=== PATIENT | female | born 1955 | race Caucasian/White ===

== ENCOUNTER 2022-02-13 08:36 | Outpatient (CLI) | payer BC, SELFPAY ==
[2022-02-13 14:03] LABS: Chloride* 105 mmol/L (96-114)
[2022-02-13 14:04] LABS: Albumin* 4.5 g/dL (3.3-5.0); Potassium* 4.3 mmol/L (3.6-5.1); Sodium* 141 mmol/L (135-149)
[2022-02-13 14:07] LABS: Bilirubin Total* 0.8 mg/dL (0.1-1.5); Blood Urea Nitrogen* 32 mg/dL (7-30); Carbon Dioxide* 29 mmol/L (20-32); Cholesterol* 157 mg/dL (90-199); Creatinine* 1.2 mg/dL (0.5-1.5); Estimated Glomerular Filt Rate 50 ml/min; Total Protein* 7.2 g/dL (6.0-8.3)
[2022-02-13 14:08] LABS: Alanine Aminotransferase* 22 U/L (4-35); Alkaline Phosphatase* 76 U/L (40-150); Aspartate Amino Transferase* 37 U/L (12-35); Calcium* 9.3 mg/dL (8.4-10.6); Glucose* 95 mg/dL (60-115); HDL Cholesterol* 49 mg/dL (>=50); LDL Cholesterol Calculated 82 mg/dL (<100); Triglycerides* 129 mg/dL (40-149)
== END 2022-02-13 08:37 | disposition home or self-care (01) ==
PROVIDERS: PCP Family Medicine; Visit Provider Family Medicine
DX: Z00.00 Encounter for general adult medical examination without abnormal findings (principal); E78.5 Hyperlipidemia, unspecified; I10 Essential (primary) hypertension
CPT/HCPCS: 80053; 80061

== ENCOUNTER 2023-03-05 08:31 | Outpatient (CLI) | payer MEDICARE, SELFPAY | END 2023-03-05 08:32 | disposition home or self-care (01) | PROVIDERS: PCP Physician Assistant Medical; Visit Provider Physician Assistant Medical | DX: I10 Essential (primary) hypertension (principal); E78.5 Hyperlipidemia, unspecified; Z13.29 Encounter for screening for other suspected endocrine disorder | CPT/HCPCS: 80053; 80061; 84443 ==

== ENCOUNTER 2023-05-29 13:25 | Outpatient (CLI) | payer MEDICARE, SELFPAY ==
--- NOTE | 2023-05-29 14:00 | CRLHL7_ITS ---
For Patients: As a result of the Century Cures Act, medical imaging exams and procedure reports are released immediately into your electronic medical record. You may view this report before your referring provider. If you have questions, please contact your health care provider. DXA BONE MINERAL DENSITY STUDY Reason for exam: Asymptomatic menopausal state. Current height (in): 69. Weight (lb): 245. Menopause age: 49. Ethnicity: White. 1. Have you had a previous hip or vertebral fracture? No. 2. Have you had any fractures during your adult life which did not result from significant trauma (e.g., auto accident)? No. 3. Did either of your parents have a hip fracture? No. 4. Do you smoke? No. 5. Have you ever taken Glucocorticoids? No. 6. Do you have rheumatoid arthritis? No. 7. Do you have secondary osteoporosis? No. 8. Do you drink 3 or more alcoholic drinks per day? No. 9. Are you being treated for osteoporosis? No. 10. Have you ever taken any of the following medications: Actonel, Evista, Fosamax, Miacalcin, Reclast, Boniva, Forteo, HRT (i.e., estrogen/hormone therapy), Protelos, Prolia, Vitamin D, Calcium, other ??? please specify. ANSWER: Yes, vitamin D and calcium. 11. Do you have any of the following medical conditions: Anorexia or bulimia, asthma or emphysema, end stage renal disease, hyperparathyroidism, any seizure disorders, cancer, inflammatory bowel diseases, hysterectomy, other ??? please specify. ANSWER: No. 12. What was your maximum height (inches)? 69.5. 13. Do you perform weight bearing exercise regularly? No. 14. Do you regularly consume dairy products? Yes. 15. Do you drink caffeinated beverages? Yes. If female: 16. At what age did your period start? 11. 17. Are you premenopausal? No. 18. How many full-term pregnancies have you had? 4. 19. Have you ever missed your period for more than 6 months in a row (not including or menopause)? No. TECHNIQUE: Bone mineral density study was performed using the [employer]. FINDINGS: The results of the study expressed as bone mineral density (BMD) are as follows: Lumbar spine L1 to L4: BMD: 0.903 g/cm2. T-score: -1.3. Z-score: 0.7 Neck Left: BMD: 0.798 g/cm2. T-score: -0.5. Z-score: 1.3 Right: BMD: 0.731 g/cm2. T-score: -1.1. Z-score: 0.7 Total Left: BMD: 0.969 g/cm2. T-score: 0.2. Z-score: 1.7 Right: BMD: 0.939 g/cm2. T-score: -0.0. Z-score: 1.4 IMPRESSION: Osteopenia. FRAX 10-year Fracture Risk Major Osteoporotic Fracture: 8.1% Hip Fracture: 0.8% Reported Risk Factors: [place] () Neck BMD=0.731, BMI= 36.2 Harrison Stock M.D. Diagnostic Radiologist [email or web address] [email or web address]/juve an/Dictated by: Harrison Stock MD @ 05/30/2023 6:34:00 AM (Electronically Signed)
--- NOTE | 2023-05-29 14:40 | CRLHL7_ITS ---
For Patients: As a result of the Cures Act, medical imaging exams and procedure reports are released immediately into your electronic medical record. You may view this report before your referring provider. If you have questions, please contact your health care provider. BILATERAL SCREENING MAMMOGRAM WITH COMPUTER-AIDED DETECTION AND TOMOSYNTHESIS TECHNIQUE: CC and MLO views were obtained. These mammographic images have been obtained using full-field digital technique. These mammographic images were interpreted with the benefit of computer-aided detection. Breast Tomosynthesis was used in this interpretation. COMPARISON FILM: 07/26/21, 05/31/20, 04/20/19. FINDINGS: There are scattered areas of fibroglandular density IMPRESSION: There is no radiographic evidence for malignancy. ASSESSMENT: BI-RADS Category 1: Negative RECOMMENDATION: Routine screening mammogram in 1 year. A lay language report of this examination will be provided to the patient. Harrison Stock M.D. Diagnostic Radiologist [email or web address] [email or web address]/juve Transcribed: 12:57 [email or web address] an/Dictated by: Harrison Stock MD @ 05/30/2023 11:29:00 AM (Electronically Signed)
== END 2023-05-29 13:26 | disposition home or self-care (01) ==
PROVIDERS: PCP Physician Assistant Medical; Visit Provider Physician Assistant Medical
DX: Z12.31 Encounter for screening mammogram for malignant neoplasm of breast (principal); Z78.0 Asymptomatic menopausal state; M85.89 Other specified disorders of bone density and structure, multiple sites
CPT/HCPCS: 77063; 77067; 77080

== ENCOUNTER 2024-01-01 07:21 | Outpatient (CLI) | payer MEDICARE, SELFPAY ==
--- OUTSIDE RECORDS SUMMARY | 2024-01-01 07:26 | XMS_ITS | Continuity of Care Document ---
Author Organization [facility] Address [address] [place] [address] Phone Care Team Providers Care Hide Handler Name Role Phone Jovanni David MD Unavailable Unavailable Allergies, Adverse Reactions, Alerts Substance Reaction Status Criticality No Known Allergies Active No Inform ation Medications Medication Instructions Dosage Effective Dates (start - stop) Status Comments LISINOPRIL (unknown strength) Not Available - Active Procedures Procedure Date Office/Outpatient Visit,[facility] 2017 Advance Directives Directive Yes / No Effective Date File Name No Information Encounters Encounter Description Practice Location Reason(s) For Visit Diagnoses Date Provider Providers Copied on Encounter [facility], [address], [place], [place], [id number] , [place] tel: [phone] [facility] - [facility] No Information 8 Frankie Baig. [facility], [address] [place] [address], [address], [place], [place], [address] , [place]. tel: [phone] Office/Outpat ient Visit,[facility], [address], [place], [place], [address] , [place] tel: [phone] [facility] - [place] Spinal stenosis, lumbar region without neurogenic claudicationOther intervertebral disc displacement, lumbar regionRadiculopath y, lumbar region 8 Panvica Niko. [facility], [address], [address], [place], [place], [address] , [place]. tel: [phone] Referring Provider: Wisam Velásquez , [address] [address] [address], [place], [address]. tel:[phone] Family History Family Member Type Diagnosis Age At Onset No Information Payers Payer name Insurance type Covered democrat ID Authoriza tion(s) No Information Social History Type Description Quantity Date Captured Comments Alcohol Use Details Unknown Caffeine Use Details Unknown Tobacco Use Status No Information Smoking Status No Information Sex Female Chief Complaint And Reason For Visit No Information Reason For Referral Reason For Referral No Information History Of Present Illness Encounter Date Complaint History Of Prese nt Illness No Information Functional Status Date Functional Assessmen t No Information Instructions Date Instruction Additional Infor mation No Information Assessments Type Assessment Date No Information Patient Care Teams Name Effective Dates (start - stop) Status Members No Information
--- OUTSIDE RECORDS SUMMARY | 2024-01-01 07:26 | XMS_ITS | Clinical Summary ---
Author Organization [facility] Address [place], [place] [address] Care Team Providers Care Physician Relations Specialist Name Role Phone VotelChristoph MD Primary Care Provider + Allergies Active Allergy Reactions Criticality Noted Date Comments Amoxicillin-Pot Clavulanate Rash 11/19/19 08 Codeine 12/24/2006 Loratadine Edema 11/22/2008 Triamterene-Hydrochlorothiazid 12/24 Medications Medication Sig Dispensed Refills Start Date End Date Status lisinopril (PRINIVIL; ZESTRIL) 20 mg tablet Take three tablets daily 90 tablet 3 05/29/2010 Active doxazosin (CARDURA) 2 mg tabletIndications:HTN (hypertension) Take 2 tablets by mouth at bedtime. 60 tablet 5 07/10/2010 Active Active Problems Problem Noted Date Diagnosed Date Screen for colon cancer 05/04/2009 Overview: Colonoscopy 04/2009 normal repeat in 10 years HTN (hypertension) 01/11/2009 Allergic rhinitis, cause unspecified 12/24/2006 Immunizations Name Administration Dates Next Due Td (Age >=7 Years) 03/07/2003 Family History Medical History Relation Name Comments Heart Disease Father suddenly at age 81 of [place] Other Father Sleep apnea, Hypertension Mother Relation Name Status Comments Father Alive Mother Alive Social History Tobacco Use Types Packs/Day Years Used Date Smoking Tobacco: Never Smokeless Tobacco: Never Alcohol Use Standard Drinks/Week Comments No 0 (1 standard drink = 0.6 oz pur e alcohol) Alcoholic Drinks/day: 0 Sex and Gender Information Value Date Recorded Sex Assigned at Not on file Gender Identity Not on file Sexual Orientation Not on file Obstetrics History Last Filed Vital Signs Vital Sign Reading Time Taken Comments Blood Pressure 136/79 09/04/2010 4:44 PM MAMMA LOGIST Pulse 63 09/04/2010 4:44 PM MAMMA LOGIST Temperature 36.7 ??C (98 ??F) 11/19/2007 9:05 AM CDT Respiratory Rate - - Oxygen Saturation 98% 08/21/2010 10:43 AM MAMMA LOGIST room air Inhaled Oxygen Concentration - - Weight 103.4 kg (228 lb) 09/04/2010 4:44 PM MAMMA LOGIST Height 176.5 cm (5' 9.5) 01/09/2010 3:09 PM CDT Body Mass Index 33.19 01/09/2010 3:09 PM CDT Plan of Treatment Health Maintenance Due Date Last Done Comments Tdap 1965 Depression screening for age 12+ 1966 BMI (ht and wt on same day) for age 18+ 1972 Hepatitis C screening for ag e 18-79 1972 Zoster (shingles) series for age 50+ (1 of 2) 2004 Mammogram for age 45-75 12/21/2009 12/21/2008, 11/22 Tetanus booster 03/07/2013 03/07/2003 Lipids for age 45-75 08/21/2015 08/21/2010, 11/22/2008, 12/24/2006, Additional history exists Colonoscopy through age 75 05/04/2019 05/04/2009 DEXA/DXA scan for age 65+ 2019 Pneumococcal series for age 65+ (1 of 1 - PCV) 2019 COVID-19 vaccine series ( - 2022-24 season) 2023 Influenza for age 65+ 03/28/2024 Procedures Procedure Name Priority Date/Time Associated Diagnosis Comments LIPID PANEL Routine 08/21/2010 9:47 AM MAMMA LOGIST Screening, lipid XR FFDM MAMMO UNI ADDL VIEWS RIGHT (IA) Routine 12/21/2008 1:43 PM CDT Abnormal Mammogram, Unspecified from Last 3 Months or Most Recently Relevant to Health Maintenance Results * (ABNORMAL) LIPID PANEL (08/21/2010 9:47 AM MAMMA LOGIST) CHOLESTEROL,TOTAL 216(H) 110 - 199 mg/dL [facility] TRIGLYCERIDES 101 <150 mg/dL [facility] HDL CHOLESTEROL 48 >40 mg/dL [facility] CHOL/HDL RATIO 4.50 <4.51 [facility] LDL CHOLESTEROL 148(H) <131 mg/dL [facility] PATIENT STATUS Fasting [facility] Blood specimen (specimen) BLOOD SPECIMEN / Unknown 08/21/2010 9:47 AM MAMMA LOGIST 08/21/2010 9:43 AM MAMMA LOGIST Christoph Negron MD CHEMISTRY [facility] [address] [id number] * XR FFDM MAMMO UNI ADDL VIEWS RIGHT (12/21/2008 1:43 PM CDT) MAMMOGRAM ACR 2 Benign Finding Anatomical Region Laterality Modality BREASTS, Breast Right Right Mammograph y 12/21/2008 1:43 PM CDT Narrative 12/21/2008 2:54 PM CDT RIGHT MAMMOGRAM ADDITIONAL VIEWS CLINICAL HISTORY: ??Because of a focal asymmetric density in the anterior aspect of the right breast on the MLO projection, the patient returned for additional views. ?? FINDINGS: ??A spot compression view was obtained in the ML projection and a true lateral projection was obtained. ??The density was less apparent on the spot compression view and was not seen with certainty on the true lateral film or the previous CC projection. ??It is therefore felt to be secondary to summation. ?? CONCLUSION: ?? 1. ??ACR 2 Benign Finding. 2. ??Recommend continued screening in one year. Procedure Note Zan Blancas MD - 12/21/2008 RIGHT MAMMOGRAM ADDITIONAL VIEWS CLINICAL HISTORY: Because of a focal asymmetric density in the anterioraspect of the right breast on the MLO projection, the patient returned foradditional views. FINDINGS: A spot compression view was obtained in the ML projection and atrue lateral projection was obtained. The density was less apparent onthe spot compression view and was not seen with certainty on the truelateral film or the previous CC projection. It is therefore felt to besecondary to summation. CONCLUSION: 1. ACR 2 Benign Finding. 2. Recommend continued screening in one year. Christoph Negron MD MAMMO from Last 3 Months or Most Recently Relevant to Health Maintenance Care Teams Physician Relations Specialist Relationship Specialty Start Date End Date Christoph Negron MD [address] [place] [address] PCP - General 11/07/05
[2024-01-01 07:51] LABS: Creatinine* 1.2 mg/dL (0.5-1.5); Estimated Glomerular Filt Rate 49 ml/min
--- NOTE | 2024-01-01 08:00 | CRLHL7_ITS ---
For Patients: As a result of the Century Cures Act, medical imaging exams and procedure reports are released immediately into your electronic medical record. You may view this report before your referring provider. If you have questions, please contact your health care provider. INDICATION: Right tongue mass TECHNIQUE: CT of the neck with 123 ml Isovue 370 contrast agent. Coronal and sagittal reconstructions are included. COMPARISON: None available FINDINGS: Asymmetric lobulated soft tissue at the right base of tongue in the region of the lingual tonsil, measuring approximately 10 x 15 x 24 mm AP/TR/CC. No overtly aggressive features or evidence of local invasion. Small size of the unremarkable left lingual tonsil. No suspicious cervical lymphadenopathy. No evidence of airway compromise. The oral cavity, nasopharynx, hypopharynx, and laryngeal structures are unremarkable. The bilateral parotid and left submandibular glands have a normal appearance. The right submandibular gland is not visualized. The thyroid gland is unremarkable in appearance. Major vascular structures of the neck demonstrate expected contrast opacification. Moderate mucosal thickening at the inferior right maxillary sinus. Orbits and included intracranial structures are unremarkable for technique. No suspicious lytic or blastic osseous lesions identified. Included lung apices are clear. IMPRESSION: 1. Asymmetric lobulated soft tissue fullness at the right tongue base in the region of the lingual tonsil, without overtly aggressive features or evidence of local invasion. Advise direct visualization and soft tissue sampling if indicated to assess for oropharyngeal neoplasm. 2. No suspicious cervical lymphadenopathy. 3. Moderate mucosal thickening at the inferior right maxillary sinus. Please note that all CT scans at this facility use dose modulation, iterative reconstruction, and/or weight-based dosing when appropriate to reduce radiation dose to as low as reasonably achievable. Dictated by Cherelle Gavin MD @ 01/02/2024 9:04:33 AM (Electronically Signed)
== END 2024-01-01 07:22 | disposition home or self-care (01) ==
PROVIDERS: PCP Physician Assistant Medical; Visit Provider Otolaryngology
DX: K14.8 Other diseases of tongue (principal); J32.0 Chronic maxillary sinusitis
CPT/HCPCS: 36415; 70491; 82565; Q9967

== ENCOUNTER 2024-01-22 13:52 | Outpatient (CLI) | payer MEDICARE, SELFPAY ==
--- OUTSIDE RECORDS SUMMARY | 2024-01-22 13:55 | XMS_ITS | Clinical Summary ---
Author Organization [facility] Address [place], [place] [address] Care Team Providers Care Plant Biology Professor Name Role Phone VotelChristoph MD Primary Care [...] Disease Father suddenly at age 81 of [place] Other Father Sleep apnea, Hypertension Mother Relation [...] Comments Blood Pressure 136/79 09/04/2010 4:44 PM TAILING HAND Pulse 63 09/04/2010 4:44 PM TAILING HAND Temperature 36.7 ??C (98 ??F) 11/19/2007 9:05 AM CDT Respiratory Rate - - Oxygen Saturation 98% 08/21/2010 10:43 AM TAILING HAND room air Inhaled Oxygen Concentration - - Weight 103.4 kg (228 lb) 09/04/2010 4:44 PM TAILING HAND Height 176.5 cm (5' 9.5) 01/09/2010 3:09 [...] Comments LIPID PANEL Routine 08/21/2010 9:47 AM TAILING HAND Screening, lipid XR FFDM MAMMO UNI ADDL VIEWS RIGHT (IA) Routine 12/21/2008 1:43 PM CDT Abnormal Mammogram, Unspecified from Last 3 Months or Most Recently Relevant to Health Maintenance Results * (ABNORMAL) LIPID PANEL (08/21/2010 9:47 AM TAILING HAND) CHOLESTEROL,TOTAL 216(H) 110 - 199 mg/dL [facility] TRIGLYCERIDES 101 <150 mg/dL [facility] HDL CHOLESTEROL 48 >40 mg/dL [facility] CHOL/HDL RATIO 4.50 <4.51 [facility] LDL CHOLESTEROL 148(H) <131 mg/dL [facility] PATIENT STATUS Fasting [facility] Blood specimen (specimen) BLOOD SPECIMEN / Unknown 08/21/2010 9:47 AM TAILING HAND 08/21/2010 9:43 AM TAILING HAND Christoph Negron MD CHEMISTRY [facility] [address] [phone] * XR FFDM MAMMO UNI ADDL VIEWS [...] Recently Relevant to Health Maintenance Care Teams Plant Biology Professor Relationship Specialty Start Date End Date Chrsitoph Negron MD [address] [place] [address] PCP - General 11/07/05
--- OUTSIDE RECORDS SUMMARY | 2024-01-22 13:55 | XMS_ITS | Continuity of Care Document ---
Author Organization [facility] Address [address] [place] [address] Phone Care Team Providers Care Agricultural Science Professor Name Role Phone Jovanni David MD Unavailable Unavailable Allergies, Adverse Reactions, Alerts Substance Reaction Status Criticality No Known Allergies Active No Inform ation Medications Medication Instructions Dosage Effective Dates (start - stop) Status Comments LISINOPRIL (unknown strength) Not Available - Active Procedures Procedure Date Office/Outpatient Visit,[facility] 2017 Advance Directives Directive Yes / No Effective Date File Name No Information Encounters Encounter Description Practice Location Reason(s) For Visit Diagnoses Date Provider Providers Copied on Encounter [facility], [address], [place], [place], [address] , [place] tel: [phone] [facility] No Information [address] [facility], [address] [place] [address], [address], [place], [place], [id number] , [place]. tel: [phone] Office/Outpat ient Visit,[facility], [address], [place], [place], [address] , [place] tel: [phone] [facility] [place] Spinal stenosis, lumbar region without neurogenic claudicationOther intervertebral disc displacement, lumbar regionRadiculopath y, lumbar region [address] [facility], [address], [address], [place], [place], [address] , [place]. tel: [phone] Referring Provider: Wisam Velásquez , [address] [address] [address], [place], [address]. tel:[phone] Family History Family Member Type Diagnosis Age At Onset No Information Payers Payer name Insurance type Covered green party ID Authoriza tion(s) No Information Social History [...]
== END 2024-01-22 13:53 | disposition home or self-care (01) ==
PROVIDERS: PCP Physician Assistant Medical; Visit Provider Physician Assistant Medical
DX: Z01.818 Encounter for other preprocedural examination (principal); I10 Essential (primary) hypertension; E78.5 Hyperlipidemia, unspecified
CPT/HCPCS: 80061; 84443; 84450; 84460

== ENCOUNTER 2024-01-27 07:37 | Emergency (ER) | payer MEDICARE, SELFPAY ==
[2024-01-27 07:46] VITALS: BP 187/105; PULSE 70; RESP 18; TEMP 36.6; O2SAT 96; BMI 26.6
--- NOTE | 2024-01-27 08:17 | CRLHL7_ITS ---
For Patients: As a result of the Century Cures Act, medical imaging exams and procedure reports are released immediately into your electronic medical record. You may view this report before your referring provider. If you have questions, please contact your health care provider. Indication: Headache. Technique: Noncontrast CT of head was performed. Comparison: None available. Findings: Brain parenchyma: Normal coleman-white matter differentiation. No acute intraparenchymal hemorrhage. No mass effect or midline shift. Extra-axial spaces: No extra-axial collection. Ventricular system: Unremarkable for age. Paranasal sinuses and mastoid air cells: Mucosal thickening of the right maxillary sinus. Otherwise clear. Orbits: Unremarkable. Bones: No calvarial fracture. Impression: 1. No acute intracranial abnormality identified. 2. Right maxillary sinus disease. Please note that all CT scans at this facility use dose modulation, iterative reconstruction, and/or weight-based dosing when appropriate to reduce radiation dose to as low as reasonably achievable. Dictated by Eloina Scott MD @ 01/27/2024 8:41:14 AM (Electronically Signed)
--- OUTSIDE RECORDS SUMMARY | 2024-01-27 08:22 | XMS_ITS | Clinical Summary ---
Author Organization [facility] Address [place], [place] [address] Care Team Providers Care Mission Systems Engineer Name Role Phone VotelChristoph MD Primary Care [...] Disease Father suddenly at age 81 of [place] Other Father Sleep apnea, Hypertension Mother Relation [...] Comments Blood Pressure 136/79 09/04/2010 4:44 PM NEEDLE PROCESS FELT GOODS SUPERVISOR Pulse 63 09/04/2010 4:44 PM NEEDLE PROCESS FELT GOODS SUPERVISOR Temperature 36.7 ??C (98 ??F) 11/19/2007 9:05 AM CDT Respiratory Rate - - Oxygen Saturation 98% 08/21/2010 10:43 AM NEEDLE PROCESS FELT GOODS SUPERVISOR room air Inhaled Oxygen Concentration - - Weight 103.4 kg (228 lb) 09/04/2010 4:44 PM NEEDLE PROCESS FELT GOODS SUPERVISOR Height 176.5 cm (5' 9.5) 01/09/2010 3:09 [...] Comments LIPID PANEL Routine 08/21/2010 9:47 AM NEEDLE PROCESS FELT GOODS SUPERVISOR Screening, lipid XR FFDM MAMMO UNI ADDL VIEWS RIGHT (IA) Routine 12/21/2008 1:43 PM CDT Abnormal Mammogram, Unspecified from Last 3 Months or Most Recently Relevant to Health Maintenance Results * (ABNORMAL) LIPID PANEL (08/21/2010 9:47 AM NEEDLE PROCESS FELT GOODS SUPERVISOR) CHOLESTEROL,TOTAL 216(H) 110 - 199 mg/dL [facility] TRIGLYCERIDES 101 <150 mg/dL [facility] HDL CHOLESTEROL 48 >40 mg/dL [facility] CHOL/HDL RATIO 4.50 <4.51 [facility] LDL CHOLESTEROL 148(H) <131 mg/dL [facility] PATIENT STATUS Fasting [facility] Blood specimen (specimen) BLOOD SPECIMEN / Unknown 08/21/2010 9:47 AM NEEDLE PROCESS FELT GOODS SUPERVISOR 08/21/2010 9:43 AM NEEDLE PROCESS FELT GOODS SUPERVISOR Christoph Negron MD CHEMISTRY [facility] [address] [phone] * XR FFDM MAMMO UNI ADDL VIEWS [...] Recently Relevant to Health Maintenance Care Teams Mission Systems Engineer Relationship Specialty Start Date End Date Christoph Negron MD [address] [place] [address] PCP - General 11/07/05
--- OUTSIDE RECORDS SUMMARY | 2024-01-27 08:22 | XMS_ITS | Continuity of Care Document ---
Author Organization [facility] Address [address] [place] [address] Phone Care Team Providers Care Welfare Case Worker Name Role Phone Jovanni David MD Unavailable Unavailable Allergies, Adverse Reactions, Alerts Substance Reaction Status Criticality No Known Allergies Active No Inform ation Medications Medication Instructions Dosage Effective Dates (start - stop) Status Comments LISINOPRIL (unknown strength) Not Available - Active Procedures Procedure Date Office/Outpatient Visit,[facility] 2017 Advance Directives Directive Yes / No Effective Date File Name No Information Encounters Encounter Description Practice Location Reason(s) For Visit Diagnoses Date Provider Providers Copied on Encounter [facility], [address], [place], [place], [id number] , [place] tel: [phone] [facility] No Information 8 Frankie Baig. [facility], [address] [place] [address], [address], [place], [place], [address] , [place]. tel: [phone] Office/Outpat ient Visit,[facility], [address], [place], [place], [address] , [place] tel: [phone] [facility] [place] Spinal stenosis, lumbar region without neurogenic claudicationOther intervertebral disc displacement, lumbar regionRadiculopath y, lumbar region 8 Panvica Niko. [facility], [address], [address], [place], [place], [address] , [place]. tel: [phone] Referring Provider: Wisam Velásquez , [address] [address] [address], [place], [address]. tel:[phone] Family History Family Member Type Diagnosis Age [...]
[2024-01-27] MEDS: diphenhydrAMINE 50 MG/ML inj 25 MG IVP (08:43)
[2024-01-27] MEDS: METOCLOPRAMIDE HCL 10 MG in 0.9 % SODIUM CHLORIDE 100 ml 100 ML 306 MG IVPB (08:43)
--- NOTE | 2024-01-27 08:44 | ED.GENADULT ---
HPI - General Adult General Date Seen: 01/27/24 Chief complaint: Hypertension Stated complaint: elevated bp Time Seen by Provider: 01/27/24 08:06 Source: patient Mode of arrival: ambulatory Limitations: no limitations History of Present Illness HPI narrative: Patient is a 68-year-old woman with a history of hypertension who presents with high blood pressure readings for the past couple of days and associated headache which she woke up with this morning. She says she has been worried the past couple of days about procedure she is having tomorrow of a biopsy of the base of her tongue. She thinks that is why her blood pressure has been running high. This morning she woke up with a headache in the back of her head. She has a little associated nausea, no significant photophobia although she says she in general prefers dim lighting. She has not had any vomiting or fevers, no trauma or neck pain. No chest pain, difficulty breathing, palpitations or other complaints. She is a lifelong nonsmoker, it sounds as if something was seen on CT that she had back in July and the biopsy is being done out of an abundance of caution, but she has had a scope that did not show any findings. She denies any neurologic symptoms. She is not anticoagulated. She took her blood pressure medicines this morning but did not take anything for her headache. She is here today with her . He notes that he had a recent hip replacement and so she has been under some stress taking care of him for that reason as well. Related Data Home Medications ?Medication ?Instructions ?Recorded ?Confirmed calcium carbonate 600 mg-vitamin cap PO 02/13/22 01/22/24 D3 12.5 mcg (500 unit) capsule (Calcium 600 with Vitamin D3) famotidine 20 mg tablet (Pepcid) 20 mg PO BID 01/22/24 01/22/24 Previous Rx's ?Medication ?Instructions ?Recorded meclizine 25 mg tablet 25 mg PO TID #15 tabs 04/30/23 losartan 100 mg tablet 100 mg PO QDAY #90 tabs 01/25/24 rosuvastatin 10 mg tablet 10 mg PO DAILY #90 tabs 01/25/24 Allergies Allergy/AdvReac Type Severity Reaction Status Date / Time codeine Allergy Severe Vomiting Verified 01/22/24 13:43 amoxicillin Allergy Unknown Verified 01/22/24 13:43 loratadine Allergy Unknown Verified 01/22/24 13:43 simvastatin AdvReac Intermediate High blood Verified 01/22/24 13:43 pressure Clavulanate Allergy Unknown Uncoded 01/22/24 13:43 Hydrochlorothiazide / Allergy Unknown Uncoded 01/22/24 13:43 triamterene maxide Allergy Unknown Uncoded 01/22/24 13:43 Review of Systems Status of ROS: Reports: 10 or more systems reviewed and unremarkable except as noted in History and below PFSH [facility] Medical History (Updated 01/27/24 @ 09:33 by Ashely Chong MD) Acute sinus infection ?J01.90 - Acute sinusitis, unspecified (ICD-10) Lightheadedness (09/28/12) ?R42 - Dizziness and giddiness (ICD-10) Burping ?R14.2 - Eructation (ICD-10) Allergic rhinitis (12/24/06) ?J30.9 - Allergic rhinitis, unspecified (ICD-10) Surgical History History of tonsillectomy and adenoidectomy ?Z90.89 - Acquired absence of other organs (ICD-10) History of third molar tooth extraction ?K08.409 - Partial loss of teeth, unspecified cause, unspecified class (ICD-10) History of laparoscopy (09/28/12) ?Z98.890 - Other specified postprocedural states (ICD-10) Family History (Updated 02/08/22 @ 13:55 by Quinton Hubbard) Mother High blood pressure Father High blood pressure Myocardial infarction, Onset Age: 81 Other Hx of blood clots Social History (Updated 02/08/22 @ 13:55 by Quinton Hubbard) Narrative: Does not drink alcohol Does not use illicit drugs Non-smoker Smoking Status: Never smoker Little interest or pleasure in doing things: not at all Feeling down, depressed, or hopeless: not at all Exam Narrative: Exam Narrative: Vital signs as noted above. In general, an alert, well-appearing patient. Head: Normocephalic, atraumatic. Eyes: Pupils are equal reactive. Extraocular movements are full. Conjunctivae are normal. ENT: Mucous membranes are moist. Throat is normal. Neck: Supple without lymphadenopathy. No masses or stridor. Heart: Regular rate and rhythm. No murmur or rub. Lungs: Clear bilaterally. No increased work of breathing, crackles or wheezes. Abdomen: Soft and nontender. No organomegaly. Extremities: Well perfused. No edema. No calf tenderness. Pulses intact. Neurologic: Patient is alert and oriented to person and place. Speech is fluent. Face is symmetric. Moves all extremities equally. Affect: Normal. Skin: Warm and dry. Well perfused. Const: Vital Signs, click to edit/add: Vital Signs - 24 hr 01/27/24 07:46 01/27/24 08:50 Temperature 98 F Pulse Rate [Right Pulse Oximeter] 70 Respiratory Rate 18 Blood Pressure [Ri ght Upper Arm] 187/105 H 172/105 H Pulse Oximetry 96 Oxygen Delivery Me thod Room Air Documenting provider has reviewed patient's vital signs: yes Course Course ED Course: Patient with known history of hypertension presents with elevated readings the past couple of days, some added stressors, and non today with headache. I did recommend that we do a CT scan to rule out evidence of intracranial hemorrhage. Tension headache or migraine also possibility. Would doubt this represents mass or infection. Will give her some Reglan and Benadryl to see if her headache improves, trying to stay way from Toradol given her procedure tomorrow. She is improved after medications, headache is resolved. CT scan by my review shows no hemorrhage, final radiology read as follows:Findings: Brain parenchyma: Normal coleman-white matter differentiation. No acute intraparenchymal hemorrhage. No mass effect or midline shift. Extra-axial spaces: No extra-axial collection. Ventricular system: Unremarkable for age. Paranasal sinuses and mastoid air cells: Mucosal thickening of the right maxillary sinus. Otherwise clear. Orbits: Unremarkable. Bones: No calvarial fracture. Impression: 1. No acute intracranial abnormality identified. 2. Right maxillary sinus disease. I think the thickening in the maxillary sinuses likely incidental, she does not have any facial pain or other symptoms of sinusitis. Blood pressure remains elevated here 172/105. She does have a history of hypertension, recent stressors. Have suggested that she have her procedure tomorrow, see if blood pressures subtle down once that is behind her. Otherwise, should follow up with primary care for further evaluation and discussion of medication adjustment. She says she has been keeping track of her blood pressures and communicating those to her primary doctor already. Return any time for acute worsening, new symptoms such as altered mentation, vomiting, severe pain. Vital Signs Vital signs: Initial Vital Signs Temperature 98 F 01/27/24 07:46 Temperature Source Temporal Artery Scan 01/27/24 07:46 Pulse Rate 70 01/27/24 07:46 Pulse Rhythm Regular 01/27/24 07:46 Pulse Strength 3+ Normal 01/27/24 07:46 Respiratory Rate 18 01/27/24 07:46 Blood Pressure 187/105 H 01/27/24 07:46 Blood Pressure Mean 132 H 01/27/24 07:46 Blood Pressure Position Sitting 01/27/24 07:46 Pulse Oximetry 96 01/27/24 07:46 Oxygen Delivery Method Room Air 01/27/24 07:46 Vital Signs Temperature 98 F 01/27/24 07:46 Pulse Rate 70 01/27/24 07:46 Respiratory Rate 18 01/27/24 07:46 Blood Pressure 187/105 H 01/27/24 07:46 Pulse Oximetry 96 01/27/24 07:46 Oxygen Delivery Method Room Air 01/27/24 07:46 Temperature 98 F 01/27/24 07:46 Pulse Rate 70 01/27/24 07:46 Respiratory Rate 18 01/27/24 07:46 Blood Pressure 172/105 H 01/27/24 08:50 Pulse Oximetry 96 01/27/24 07:46 Oxygen Delivery Method Room Air 01/27/24 07:46 Medications Administered Medications: Discontinued Medications Generic Name Dose Route Start Last Admin Trade Name Freq PRN Reason Stop Dose Admin Diphenhydramine HCl 25 mg 01/27/24 08:17 01/27/24 08:43 Diphenhydramine 50 Mg/Ml Inj IVP 01/27/24 08:18 25 mg ONCE ONE Administration Metoclopramide HCl 10 mg/ 102 mls @ 306 mls/hr 01/27/24 08:17 01/27/24 09:07 Sodium Chloride IVPB 01/27/24 08:18 Infused ONCE ONE Infusion Discharge Plan Discharge Clinical Impression: Headache Hypertension Qualifiers: Hypertension type: primary hypertension Qualified Code(s): I10 - Essential (primary) hypertension Patient Disposition: Home, Self-Care Condition: Improved Instructions: Acute Headache (DC) Additional Instructions: Follow-up for your procedure tomorrow as planned. If blood pressures are persistently elevated, please see your primary doctor in the next week to discuss medication adjustment. For acute worsening or new symptoms, vomiting, fevers, severe pain, altered mentation etcetera return at any time to the emergency department. Your head CT today is reassuring. Prescriptions: No Action meclizine 25 mg tablet 25 mg PO TID Qty: 15 0RF famotidine [Pepcid] 20 mg tablet 20 mg PO BID calcium carbonate-vitamin D3 [Calcium 600 with Vitamin D3] 600 mg-12.5 mcg (500 unit) capsule PO rosuvastatin 10 mg tablet 10 mg PO DAILY Qty: 90 3RF losartan 100 mg tablet 100 mg PO QDAY Qty: 90 3RF Follow Up/Referrals: Iván Dela Cruz PA-C [Primary Care Provider] - Stand Alone Forms: [employer] Info Instructions
[2024-01-27 08:50] VITALS: BP 172/105
== END 2024-01-27 09:41 | disposition home or self-care (01) ==
PROVIDERS: Emergency Provider Emergency Medicine; PCP Physician Assistant Medical
DX: R51.9 Headache, unspecified (principal); I10 Essential (primary) hypertension
CPT/HCPCS: 70450; 96365; 96375; 99284; J1200; J2765

== ENCOUNTER 2024-01-28 06:55 | Day surgery (SDC) | payer MEDICARE, SELFPAY ==
[2024-01-28] VITALS (11 sets, daily range): BP systolic 157–178; BP diastolic 79–112; PULSE 60–87; RESP 16; TEMP 36.1–36.3; O2SAT 91–95; BMI 35.6
--- OUTSIDE RECORDS SUMMARY | 2024-01-28 06:57 | XMS_ITS | Continuity of Care Document ---
Author Organization [facility] Address [address] [place] [address] Phone Care Team Providers Care Forms Examiner Name Role Phone Jovanni David MD Unavailable Unavailable Allergies, Adverse Reactions, Alerts Substance Reaction Status Criticality No Known Allergies Active No Inform ation Medications Medication Instructions Dosage Effective Dates (start - stop) Status Comments LISINOPRIL (unknown strength) Not Available - Active Procedures Procedure Date Office/Outpatient Visit,[facility] 2017 Advance Directives Directive Yes / No Effective Date File Name No Information Encounters Encounter Description Practice Location Reason(s) For Visit Diagnoses Date Provider Providers Copied on Encounter [facility], [address], [place], [place], [id number] , [place] tel: [phone] [facility] No Information 8 Frankie Baig. [facility], [address] [place] [address], [address], [place], [place], [id number] , [place]. tel: [phone] Office/Outpat ient Visit,[facility], [address], [place], [place], [id number] , [place] tel: [phone] [facility] [place] Spinal stenosis, lumbar region without neurogenic claudicationOther intervertebral disc displacement, lumbar regionRadiculopath y, lumbar region 8 Panvica Niko. [facility], [address], [address], [place], [place], [id number] , [place]. tel: [phone] Referring Provider: Wisam Velásquez , [address] [address] [address], [place], [address]. tel:[phone] Family History Family Member Type Diagnosis Age At Onset No Information Payers Payer name Insurance type Covered alliance party ID Authoriza tion(s) No Information Social [...]
--- OUTSIDE RECORDS SUMMARY | 2024-01-28 06:57 | XMS_ITS | Clinical Summary ---
Author Organization [facility] Address [place], [place] [address] Care Team Providers Care Security Messenger Name Role Phone VotelChristoph MD Primary Care [...] Disease Father suddenly at age 81 of [place] Other Father Sleep apnea, Hypertension Mother Relation [...] Comments Blood Pressure 136/79 09/04/2010 4:44 PM [employer]ORE [employer]KER HELPER Pulse 63 09/04/2010 4:44 PM CORE [employer]KER HELPER Temperature 36.7 ??C (98 ??F) 11/19/2007 9:05 AM CDT Respiratory Rate - - Oxygen Saturation 98% 08/21/2010 10:43 AM CORE MAKER HELPER room air Inhaled Oxygen Concentration - - Weight 103.4 kg (228 lb) 09/04/2010 4:44 PM CORE [employer]KER HELPER Height 176.5 cm (5' 9.5) 01/09/2010 3:09 [...] Comments LIPID PANEL Routine 08/21/2010 9:47 AM CORE MAKER HELPER Screening, lipid XR FFDM MAMMO UNI ADDL VIEWS RIGHT (IA) Routine 12/21/2008 1:43 PM CDT Abnormal Mammogram, Unspecified from Last 3 Months or Most Recently Relevant to Health Maintenance Results * (ABNORMAL) LIPID PANEL (08/21/2010 9:47 AM CORE MAKER HELPER) CHOLESTEROL,TOTAL 216(H) 110 - 199 mg/dL [facility] TRIGLYCERIDES 101 <150 mg/dL [facility] HDL CHOLESTEROL 48 >40 mg/dL [facility] CHOL/HDL RATIO 4.50 <4.51 [facility] LDL CHOLESTEROL 148(H) <131 mg/dL [facility] PATIENT STATUS Fasting [facility] Blood specimen (specimen) BLOOD SPECIMEN / Unknown 08/21/2010 9:47 AM CORE MAKER HELPER 08/21/2010 9:43 AM CORE MAKER HELPER hCristoph Negron MD CHEMISTRY [facility] [address] [id number] * XR FFDM MAMMO UNI ADDL VIEWS [...] Recently Relevant to Health Maintenance Care Teams Security Messenger Relationship Specialty Start Date End Date Christoph Negron MD [address] [place] [address] PCP - General 11/07/05
[2024-01-28] MEDS: LACTATED RINGERS 1000 ML 1,000 ML 100 ML IV (07:15)
[2024-01-28] MEDS: SODIUM CHLORIDE 0.9 % (FLUSH) 10 ML SYRINGE IVF (08:05)
[2024-01-28] MEDS: SCOPOLAMINE 1 MG/3 DAY PATCH 1 PATCH TRANSDERMA (08:37)
--- NOTE | 2024-01-28 09:31 | W.PM.ENTPROC ---
Procedure Note Date of procedure: 01/28/24 Procedure: Preop diagnosis right tongue base mass Postoperative diagnosis same plus right anterior lateral tongue fibroma Procedure excision right anterior lateral tongue fibroma, direct laryngoscopy and biopsy of right tongue base mass Under general trach anesthesia patient was prepped draped usual fashion. The McIvor mouth gag was inserted the tongue retracted forward. The mass was not visualized. There were problems with the endotracheal tube which was a Gail tube coming out. The tube was changed over to a straight tube without too much difficulty. That I was able to place McIvor mouth gag and visualized the tongue base mass. A large piece of it actually several large pieces were removed with an ethmoid forceps and sent in both are I in formalin medium. The tongue fibroma was excised with needlepoint cautery. Bleeding was controlled at the tongue base with the Coblation and suction cautery and meticulous hemostasis was achieved. The patient procedure well was taken recovery in satisfactory condition blood loss during procedure was less than 10 mL. No other abnormalities were noted on laryngoscopy Surgeon: Seven Dinh MD
--- NOTE | 2024-01-28 09:45 | W.ANESCHARGE ---
Anesthesia Charges Start Date/Time Anesthesia Start Date: 01/28/24 Anesthesia Start Time: 08:48 Stop Date/Time Anesthesia Stop Date: 01/28/24 Anesthesia Stop Time: 09:43
[2024-01-28] MEDS: IBUPROFEN 200 MG TABLET PO (10:53)
== END 2024-01-28 11:23 | disposition home or self-care (01) ==
PROVIDERS: PCP Physician Assistant Medical; Visit Provider Otolaryngology
PROC: 0CJS8ZZ Inspection of Larynx, Via Natural or Artificial Opening Endoscopic (ICD-10-PCS; CPT 31535; principal; 2024-01-28 08:30)
PROC: (CPT 31535; 2024-01-28 08:30)
DX: D10.1 Benign neoplasm of tongue (principal)
CPT/HCPCS: 31535; 42808; 00170; 88184; 88185; 88305; A9270; J0330; J1100; J1630; J2405; J2704; J3010; J7120

== ENCOUNTER 2024-06-01 09:41 | Outpatient (CLI) | payer MEDICARE, SELFPAY ==
--- OUTSIDE RECORDS SUMMARY | 2024-06-01 09:44 | XMS_ITS | Encounter Summary ---
Author Organization [facility] Address [address] [address] Phone Care Team Providers Care Mica Laminating Machine Feeder Name Role Phone Elsewhere, Pcp Primary Care Provider Unavailabl e Reason for Visit * Auth/Cert Specialty Diagnoses / Procedures Referred By Contac t Referred To Contact Diagnoses Osteoarthritis of the right knee M17.11 Procedures TOTAL KNEE REPLACEMENT Right total knee arthroplasty Jameel Roblero MD [address] [place] [phone] Phone: tel: fax: Referral ID Status Reason Start Date Expiration Date Visits Re quested Visits Authorized [id number] 1 1 Encounter Details Date Type Department Care Team (Late st Contact Info) Description 04/05/2024 3:30 PM CDT - 04/05/2024 6:00 PM CDT Surgery [address] [phone] Jameel Roblero MD [address] [place] [phone] Right total knee arthroplasty Surgery Details Date/Time Status Location OR Service Patient Class Case Class Case Type Trauma Case? 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 anesthesia: general with pop block Special Needs seasonal allergies allergies: codeine derivatives(vomiting) documented in this encounter Social History Tobacco Use Types Packs/Day Years Used Date Smoking Tobacco: Never Smokeless Tobacco: Never Tobacco Cessation:Counseling Given: Not Answered Alcohol Use Standard Drinks/Week Comments Yes 0 (1 standard drink = 0.6 oz pur e alcohol) 2 drinks monthy [facility] Utilities Answer Date Recorded In the past 12 months has th e Applied [employer], Event[employer]neaker, oil, or water Mercury Puzzle threatened to shut off services in your home? No 04/05/2024 Hunger Vital Sign Answer Date Recorded Within the past 12 months, y ou worried that your food would run out before you got the money to buy more. Never true 04/05/20 24 Within the past 12 months, t he food you bought just didn't last and you didn't have money to get more. Never true 04/05/2024 PRAPARE - Transportation Answer Date Re corded In the past 12 months, has l ack of transportation kept you from medical appointments or from getting medications? No 03/2024 In the past 12 months, has l ack of transportation kept you from meetings, work, or from getting things needed for daily living? No 04/05/2024 Housing Stability Vital Sign Answer Kade e Recorded In the last 12 months, was t here a time when you were not able to pay the mortgage or rent on time? No 04/05/2024 In the past 12 months, how m any times have you moved where you were living? 0 04/05/2024 At any time in the past 12 m [facility], were you homeless or living in a chcf (including now)? No 04/05/2024 EH IP Custom IPV Answer Date Recorded Do you feel UNSAFE in any of your personal relationships with your family members or any other acquaintances? No 2023 Comments No Sex and Gender Information Value Date Recorded Sex Assigned at Female 03/31/2024 11:36 AM CDT Legal Sex Female 1:53 PM CDT Gender Identity Female 03/31/2024 11:36 AM CDT Sexual Orientation Not on file documented as of this encounter Last Filed Vital Signs Vital Sign Reading Time Taken Comments Blood Pressure 136/71 04/05/2024 3:35 PM CDT Pulse 73 04/05/2024 3:35 PM CDT Temperature 36.2 ??C (97.2 ??F) 04/05/2024 1:29 PM CD T Respiratory Rate 15 04/05/2024 5:00 PM CDT Oxygen Saturation 96% 04/05/2024 5:00 PM CDT Inhaled Oxygen Concentration - - Weight 111.3 kg (245 lb 6 oz) 04/05/2024 1:29 PM CDT Height 176.5 cm (5' 9.5) 03/25/2024 10:58 AM CD T Body Mass Index 35.72 03/25/2024 10:58 AM CDT documented in this encounter Functional Status * Patient's Vision Adequate to Safely Complete Daily Activities Answer Date of Assessment Author Yes 04/05/2024 8:21 PM CDT Eliseo Jara RN * Patient's Memory Adequate to Safely Complete Daily Activities Answer Date of Assessment Author Yes 04/05/2024 8:21 PM CDT Eliseo Jara RN documented as of this encounter Mental Status * Patient's Judgment Adequate to Safely Complete Daily Activities Answer Entry Date Author Yes 04/05/2024 8:21 PM CDT Eliseo Jara RN documented in this encounter Discharge Summaries * Regina Jones PA-C - 04/06/2024 8:08 AM CDT Images from the original note were not included. HOSPITAL DISCHARGE SUMMARY Regina Jones PA-C 04/06/2024 Patient Name: Theresa Kohler Date of : 1955 Age: [age] year old Primary Physician: Pcp Elsewhere Phone: None Admitting Physician: Jameel Roblero MD Admission Date: 04/05/2024 Discharging Physician: Regina Jones PA-C Discharge Date: 04/06/24 Discharge Diagnoses: Principal Problem: S/P total knee arthroplasty, right Resolved Problems: * No resolved hospital problems. * Discharge Disposition: See Orders Hospital Course: Patient presents to the perioperative period after failing to manage their knee osteoarthritis. Risks, benefits, and complications were reviewed with the patient, they elected to proceed with the scheduled surgery. A total knee replacement was completed without complication. she was admitted to orthopedics where physical therapy and education was completed. Subjective: Patient is doing well today on POD #1. They have no nausea, vomiting, chest pain, lightheadedness or dizziness. They deny any numbness or paresthesias in their surgical lower extremity. They are ambulating in the hallways, tolerating oral intake, voiding and pain is controlled with oral medications. Using IS. VSS. Hgb 13.3 (14.7 pre-op). Their discharge medications were discussed at length. They understand they will be using multiple medications for pain control to be used together. We discussed their tylenol, Celebrex, Atarax and Oxycodone prescriptions for pain control on discharge. Senokot was also reviewed. Appropriate anticoagulation therapy was also discussed, Xarelto 10 mg daily x6 weeks given her history of Factor V Leiden & activated protein C resistance. Their questions were answered, and dressing care instructions were clearly given. Objective: Blood pressure (!) 140/70, pulse 70, temperature 35.8 ??C (96.4 ??F), temperature source Temporal, resp. rate 18, height 1.765 m (5' 9.5), weight 111.3 kg (245 lb 6 oz), SpO2 93%. The patient is A&Ox3. Appears comfortable, sitting up at bedside. Knee Aquacel dressing C/D/I without strikethrough. No surrounding erythema. Mild edema and ecchymosis. Sensation intact to light touch & equal bilaterally in the L2 through S1 dermatomes. ROM/Motor: Appropriately flexes & extends all toes bilaterally. Dorsiflexion & plantar flexion intact bilaterally. Bilateral calves soft and non-tender. Negative Aubrey's sign bilaterally. Palpable Right dorsalis pedis and posterior tibial pulses. Brisk <2 sec capillary refill in the toes. Foot warm & well perfused. Labs: Lab Results Component Value Date HGB 13.3 04/06/2024 Lab Results Component Value Date CREAT 1.20 04/05/2024 Lab Results Component Value Date GFR 49 04/05/2024 Current Discharge Medication List New Prescriptions Details acetaminophen 500 MG tablet Commonly known as: Tylenol Dose: 1,000 mg 1,000 mg, Oral, 3 TIMES DAILY, Limit acetaminophen to 4000 mg per day from all sources. celecoxib 200 MG capsule Commonly known as: CeleBREX Dose: 200 mg 200 mg, Oral, ONCE DAILY hydrOXYzine HCl 25 MG tablet Commonly known as: Atarax Dose: 25 mg 25 mg, Oral, 4 TIMES DAILY NEEDED oxyCODONE 5 MG immediate release tablet Commonly known as: Roxicodone Dose: 5-10 mg 5-10 mg, Oral, EVERY 4 HOURS NEEDED rivaroxaban 10 MG tablet Commonly known as: Xarelto Dose: 10 mg 10 mg, Oral, Daily with Breakfast, Take with food. senna-docusate 8.6-50 MG oral tablet Commonly known as: Senna S Dose: 1 Tablet 1 Tablet, Oral, ONCE DAILY Continued Details amLODIPine 10 MG tablet Commonly known as: Norvasc Dose: 5 mg 5 mg, Oral, AT BEDTIME CALCIUM CITRATE + D3 OR Dose: 1 Tablet 1 Tablet, Oral, ONCE DAILY losartan 100 MG tablet Commonly known as: Cozaar Dose: 100 mg 100 mg, Oral, ONCE DAILY rosuvastatin 10 MG tablet Commonly known as: Crestor Dose: 10 mg 10 mg, Oral, ONCE DAILY You might also be taking other medications not listed above. If you have questions about any of your other medications, talk to the person who prescribed them or your Primary Care Provider. Follow Up Instructions: Jameel Roblero MD [facility] [address] Go on 04/20/2024 POST-OP APPOINTMENT SCHEDULED WITH BONITA ROMERO PA-C AT THE [facility] OFFICE AT 8:40 AM. Skilled Services Certification/Face to Face encounter: Patient Name: Theresa Kohler : 1955 Regina Jones PA-C [facility] documented in this encounter Medications at Time of Discharge acetaminophen (Tylenol) 500 MG tablet Take 2 Tablets by mouth three times a day. Limit acetaminophen to 4000 mg per day from all sources. 30 Tablet 04/06/2024 rivaroxaban (Xarelto) 10 MG tablet Take 1 Tablet by mouth one time a day with breakfast. Take with food. 41 Tablet 04/06/2024 rosuvastatin (Crestor) 10 MG tablet Take 10 mg by mouth one time a day. Calcium Citrate-Vitamin D (CALCIUM CITRATE + D3 OR) Take 1 Tablet by mouth one time a day. celecoxib (CeleBREX) 200 MG capsule Take 1 Capsule by mouth one time a day. 13 Capsule 04/05/2024 hydrOXYzine HCl (Atarax) 25 MG tabletIndication s:S/P total knee arthroplasty, right Take 1 Tablet by mouth four times a day as needed for Itching, Anxiety or Other (pain). 60 Tablet 04/05/2024 senna-docusate (Senna S) 8.6-50 MG oral tablet Take 1 Tablet by mouth one time a day. 30 Tablet 1 04/05/2024 amLODIPine (Norvasc) 10 MG tablet Take 5 mg by mouth at bedtime. losartan (Cozaar) 100 MG tablet Take 100 mg by mouth one time a day. oxyCODONE (Roxicodone) 5 MG immediate release tablet Take 1-2 Tablets by mouth every four hours as needed for Pain for up to 30 days. 30 Tablet 04/05/2024 documented as of this encounter Ordered Prescriptions Prescription Sig Dispense Quantity Refills Last Filled Start Date End Date rivaroxaban (Xarelto) 10 MG tablet Take 1 Tablet by mouth one time a day with breakfast. Take with food. 41 Tablet 04/06/2024 acetaminophen (Tylenol) 500 MG tablet Take 2 Tablets by mouth three times a day. Limit acetaminophen to 4000 mg per day from all sources. 30 Tablet 04/06/2024 senna-docusate (Senna S) 8.6-50 MG oral tablet Take 1 Tablet by mouth one time a day. 30 Tablet 1 04/05/2024 hydrOXYzine HCl (Atarax) 25 MG tabletIndications :S/P total knee arthroplasty, right Take 1 Tablet by mouth four times a day as needed for Itching, Anxiety or Other (pain). 60 Tablet 04/05/2024 celecoxib (CeleBREX) 200 MG capsule Take 1 Capsule by mouth one time a day. 13 Capsule 04/05/2024 rivaroxaban (Xarelto) 10 MG tablet Take 1 Tablet by mouth one time a day with breakfast. Take with food. 41 Tablet 04/06/2024 04/06/20 24 rivaroxaban (Xarelto) 10 MG tablet Take 1 Tablet by mouth one time a day with breakfast. Take with food. 13 Tablet 04/05/2024 04/06/20 24 oxyCODONE (Roxicodone) 5 MG immediate release tablet Take 1-2 Tablets by mouth every four hours as needed for Pain for up to 30 days. 30 Tablet 04/05/2024 05/05/20 24 documented in this encounter Discharge Disposition Disposition Code Departure Means Destination Comment s Home and/or Self [place] documented in this encounter Progress Notes * Ashley Cristina PA-C - 04/06/2024 9:39 AM CDT PROGRESS NOTE Date of Service: 04/06/2024 Subjective: POD1 I have reviewed overnight events including nursing documentation, labs, vitals and imaging. Patient denies headache, dizziness, LOC, syncope, presyncope, nausea, vomiting, abdominal pain, diarrhea, constipation, chest pain, shortness of breath, cough, fevers, chills. She had a great night. She feels she is urinating well. Discussed labs. She has stable hemoglobin today. Reviewed renal labs, has CKD. Objective: Blood pressure (!) 140/70, pulse 70, temperature 35.8 ??C (96.4 ??F), temperature source Temporal, resp. rate 18, height 1.765 m (5' 9.5), weight 111.3 kg (245 lb 6 oz), SpO2 93%. Const: NAD Eyes: PERRLA, EOMI HEENT: Normocephalic, atraumatic Neck: No cervical lymphadenopathy CV: RRR without murmur, rubs or gallops Lung: CTAB without wheezing, rales or rhonchi Abdomen: Soft, supple, nontender with positive bowel sounds no rebound or guarding Extremity: No lower extremity edema noted, no calf tenderness Neuro: Alert and orientated ??3, moves all 4 extremities Skin: No rashes, sores or abscesses I reviewed and interpreted the new labs. Recent Results (from the past 24 hour(s)) HEMOGRAM Result Value Ref Range WBC 8.9 4.0 - 11.0 10*3/uL RBC 5.03 3.80 - 5.20 10*6/uL HGB 15.2 12.0 - 16.0 g/dl HCT 46.1 35.0 - 47.0 % MCV 91.7 80 - 98 fL MCH 30.2 27.0 - 34.0 pg MCHC 33.0 32 - 36 g/dl PLT 226 150 - 420 10*3/uL RDW-CV 11.4 (L) 11.6 - 14.4 % RDW-SD 39.4 36.5 - 46.3 fL BASIC METABOLIC PANEL Result Value Ref Range Sodium 138 135 - 144 mmol/L Potassium 4.7 3.4 - 5.1 mmol/L Chloride 103 98 - 107 mmol/L Carbon Dioxide 31 (H) 22 - 30 mmol/L Calcium 9.4 8.6 - 10.3 mg/dL Glucose 105 (H) 74 - 100 mg/dL Blood Urea nitrogen 28 (H) 7 - 17 mg/dL Creatinine 1.20 (H) 0.52 - 1.04 mg/dL Anion Gap 4 (L) 5 - 15 mmol/L Glomerular Filtration Rate 49 (L) >60 mL/min/1.73 m*2 HEMOGLOBIN Result Value Ref Range HGB 13.3 12.0 - 16.0 g/dl I personally reviewed the new imaging studies. Recent Results (from the past 24 hour(s)) US ANES REFERENCE Narrative There is not a diagnostic result associated with the image(s). Please refer to either the Notes/Trans, Procedures, LDA or Anesthesia tab in the patients chart for clinical information the performing provider may have documented. The actual image(s) were acquired at the on . This order was placed into the system and automatically finalized on 04/05/2024. Hospital Summary: Carmenza Kohler is a 68 year old female with significant medical problems including HTN, HLD, CKD, Factor V Leiden, osteoarthritis, obesity who underwent RTKA on LTKA with Dr. Roblero. Medicine consult requested for perioperative comanagement of medical comorbidities. Assessment/Plan: Active Hospital Problems 1S/P total knee arthroplasty, right Care per primary service, to include pain management, activity, bowel regimen, anticoagulation and discharge. 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 HLD Continue statin Obesity BMI>30 with associated comorbidities. Counseled lifestyle modifications. CKD II Avoid nephrotoxins Avoid hypotension Ashley Cristina PA-C Hospitalist 50 minutes spent in care of the patient on 04/06/2024 including counseling of pt, coordination of care in chart review, discussion with interdisciplinary care team including nursing, social work and other consultants. * Bria Jara RN - 04/06/2024 6:21 AM CDT Procedure Right-Right total knee arthroplasty Surgeon: Jameel Roblero MD Post Op Day 1 Pain management/Comfort. Patient denies pain. Pain managed using scheduled pain medication, ice, reposition, elevation and rest Assessment/Intervention: The comprehension assessment WNL. Taran wrap removed, patient has Aquacel dressing to the right knee. Dressing is clean, dry and intact.Edema wear applied. CMS intact Activity: Patient ambulated once in the west way and three times to the bathroom. Patient voiding okay. Discharge: Patient to discharge home with family, * Chapis Tovar PT - 04/05/2024 5:32 PM CDT Physical Therapy Crude Oil Treater checked on status of patient for initiation of PT evaluation. At this time, patient was a hold for initiation of PT due patient not having yet entered OR at 1730. PT to initiate evaluation 04/06 and patient appropriateness allows. * Ashley Cristina PA-C - 04/05/2024 10:03 AM CDT PROGRESS NOTE Date of Service: 04/05/2024 Subjective: POD 0 s/p RTKA Stable post op Medicine will formally evaluate POD1 Objective: Height 1.765 m (5' 9.5), weight 110.7 kg (244 lb). I reviewed and interpreted the new labs. No results found for this or any previous visit (from the past 24 hour(s)). I personally reviewed the new imaging studies. No results found for this or any previous visit (from the past 24 hour(s)). Hospital Summary: Carmenza Kohler is a 68 year old female with significant medical problems including HTN, HLD, CKD, Factor V Leiden, osteoarthritis, obesity who underwent RTKA on LTKA with Dr. Roblero. Medicine consult requested for perioperative comanagement of medical comorbidities. Assessment/Plan: Active Hospital Problems 1S/P total knee arthroplasty, right Care per primary service, to include pain management, activity, bowel regimen, anticoagulation and discharge. 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 HLD Continue statin Obesity BMI>30 with associated comorbidities. Counseled lifestyle modifications. CKD II Avoid nephrotoxins Avoid hypotension Ashley Cristina PA-C Hospitalist * Lisa Cristobal, SHAYNE - 03/25/2024 11:02 AM CDT 03/25/24 1000 Pre-op Call Department Department [facility] Pre-op Call Schedule Pre-op H&P with PCP Completed Do you take a blood thinner? No Pre-op Education Completed Guidebook Not received Pre-op Call Completed Previous Joint Surgery No Demographics Verified Verified Phone number;Verified Email Urinary Health Questionaire Complete Female Questionnaire Discharge Plan Home Other Issues biopsy of throat 01/27 Will you have help at home? Yes Is your bathroom on the main level? Yes Are you currently using an assistive device? No PT Plan Outpatient Outpatient PT Plan Verified Length of Stay Overnight stay Sheeter Helper name & phone number Myra Ortiz [phone] Will your assistant men's soccer coach be the one picking you up from the hospital? Yes Do you have stairs to enter your home? No Is your bedroom on the main level? Yes Do you have a tub shower or walk-in shower? Walk-in shower How many blocks can you currently walk? 2+ blocks Do you have any assistive devices at home? Yes Do you have a CPAP? No What pain medications are you currently taking? NSAID;Tylenol Pain Management Preferences REnting an ice machine Goal after surgery no painand walking 2 miles a day. Biking Concerns about surgery no Past post-op complications? Nausea & vomiting;Dizziness Are you diabetic? No Do you have a metal allergy? No Pre-op H&P date 03/30/24 Pre-op H&P location [facility] Dr[facility] Dela Cruz What device(s) doyou have at home? cane;walker Reminded to bring device to hospital Yes Urinary Health Questionnaire - Female Difficulty urinating after surgery No Have you had surgery on you bladder? No Do you leak urine (even small drops) wet yourself or wet your pads or undergarments? When you cough or sneeze? 0 When you bend down or lift something up? 0 When you walk quickly, jog or exercise 0 While you are undressing in order to use the toilet? 0 When you are at rest? 0 Do you get a need to urinate that you leak urine? 0 Do you have to calero to the bathroom? 0 Total Urinary Health Score - Female 0 [place]/T[place] CHRONIC NARCOTIC USE Use of narcotics > 90 days at time of surgery? No documented in this encounter H&P Notes * Jameel Roblero MD - 04/05/2024 3:03 PM CDT Pre-op H&P update: The H&P has been reviewed and the patient examined. No change has occurred in the patient's condition since the H&P was completed. Jameel Roblero MD documented in this encounter Miscellaneous Notes * Rehab Evaluation - Chapis Tovar, PT - 04/06/2024 9:45 AM CDT PHYSICAL THERAPY ACUTE CARE ORTHOPEDIC EVALUATION (KNEE) Subjective Patient agreeable to participate with physical therapy. Pt is resting in bedside chair with her at bedside. Very pleasant. Denies concerns. Report she got to the floor late last night but waspleased to still be able to eat dinner. Agreeable throughout. Admission Diagnosis: Osteoarthritis of the right knee M17.11 Treatment Diagnosis: Pain, decreased ROM/strength, and impaired mobility status post right TKA. Procedures/Diagnostics Affecting Therapy: Procedure(s): Right - Right total knee arthroplasty - Wound Class: Clean See chart. All relevant imaging, procedures, and diagnostics reviewed prior to PT evaluation. Pertinent PMHx: HTN, HLD Functional Level Prior to Admit: Patient independent with all mobility and ADLs Mobility/ambulation: limited by knee pain. Did not use AD prior to admit. No recent fall hx. Pain: Mild Precautions: WBAT on right lower extremity. Current Living Situation/Social History: Patient lives with spouse one level home with patient ableto live on main level with bed and bath and level entry to enter. Durable Medical Equipment Owned: Single end cane Front wheeled walker Patient's Goal(s): Walking w/o pain Objective Cognition: Alert , Oriented, and Cooperative Functional Mobility Assessment Supine to Sit: didn't attempt Sit to Supine: didn't attempt Bed Modification: Sit<>Stand: standby assist and FWW. VC for push off from bedside chair. Bed<>Chair: Gait: Patient ambulated 100 ft with FWW and standby assist. Gait pattern: step through. Very slowed gait speed. Cues to strike and R heel and rock over toe. Adjusted walker height to improve patient posture and CANDE. Stairs: N/T- not required for patient's disposition. Pt declined today. Tests and Measures: Motor/Sensation: Patient was able to elicit quad set, patient was able to elicit SLR with examination. Patient also demonstrates sensation of BLE WFL for initiation of mobility. Strength/Range of Motion Assessment: Knee Range of Motion : Right Knee AROM Measured in supine and sitting position Flexion:80?? Extension: 0?? Therapeutic exercise: Therapeutic Exercises: Patient participated in the following post operative total knee arthroplasty exercises with skilled instruction: supine ankle pumps, quad set with towel roll and hold 5 seconds, SLR, heel slide; seated knee extension, Seated AAROM knee flexion hold 5 seconds x 5 reps of each. supine knee extension stretch x 5-10 minutes. After completion of therapeuticexercise, therapist set patient up on NICE machine w/ limb elevation for icing management post operatively. Therapeutic Activity: Skilled therapeutic education, relationship counselor and activity modification was providedto patient for the purpose and intent of improving functional mobility and activities of daily living. Therapist provided education regarding the following topics; Durable Medical Equipment- therapist provided skilled assessment and relationship counselor throughout encounter regarding durable medical equipment and assistive device training and appropriate sizing to accommodate patient body habitus to ensure safety of discharge planning. Gait Training: The patient participates in gait training to improve functional mobility as it relates to ambulation. Therapist provided verbal cues to improve patient understanding and to address aforementioned impairments. The patient has fair tolerance this encounter, and required SB assistance and FWW assistive device. Vitals/Observations/Response to Treatment: Stable throughout session Patient/Caregiver Education: Education provided on fall avoidance within home and DME needs; frequency of ambulation every 1-1.5hours for 5 minutes with walker, icing every hour for 20- 30 minutes during the day; frequency of HEP - 2x/day, avoidance of over-doing activity; elevation on multiple pillows to decrease swelling after activity and safe coaching handling techniques for home discharge planning. Barriers to Learning: None Evaluation, assessment, goals, and plan of care discussed with patient and spouse. The patient and spouse received written information, verbal information, and a demonstration. The opportunity to ask questions was offered. The patient verbalized and demonstrated good understanding verbalized good understanding. Interdisciplinary Communication: Evaluation, goals, and plan of care discussed with care round team. Assessment/Plan Patient is a 68 year old female with pain, decreased ROM/Strength and impaired mobility status postright TKA. Patient was limited by pain in Knee with mobility prior to surgery. Today, the patient has fair tolerance to physical therapy, and requires SB assistance for mobility with use of FWW at this time. Throughout visit, PT observed incision site for drainage- no concerns to note. Patient is appropriate for skilled physical therapy services. Barriers to Discharge Home: No anticipated barriers PLAN OF CARE Recommendations for Discharge: Home with Outpatient Therapy Services Anticipated DME Needs for Discharge: patients has all necessary AD's Goals to be met by discharge from facility- MET Goals to be met by patient discharge: Patient will ambulate 100 + feet with SBA and appropriate assistive device Patient will demonstrate modified independence with bed and chair transfers with appropriate assistive device. Patient will demonstrate safe understanding and carry out of HEP as indicated by PT. Rehab Potential: Good Frequency of Physical Therapy Recommended: One time evaluation and treatment Planned interventions may consist of any combination of the following: Therapeutic Exercise (strength/range of motion) Therapeutic Activities (transfer training/functional mobility) Gait Training Neuromuscular Re-education Manual Therapy Patient/Caregiver Education Home Exercise Program Self-Care/Home Management (ADL's) Duration of Services: Acute care Physical Therapy will continue until patient has met prior level of function, safety/independence, or is discharged from the facility. PT Total Treatment Time: 40 minutes Evaluation Low - Complexity (67243) Gait Training (53565) = 8 minutes Therapeutic Exercise (65036) = 15 minutes * Care Plan - Magdaleno Quintero RN - 04/06/2024 9:08 AM CDT Patient is A&Ox4, IV removed prior to discharge and VSS on RA. 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 Pain is well controlled with scheduled tylenol and ice. Patient is voidingadequately and tolerating a regular diet. Patient gets up with 1, GB and walker. Aquacel Ag dressing is C/D/I and CMS intact, edema wear in place. Plan is for patient to discharge home today with assistant men's soccer coach/ Suman. All questions and concerns will be addressed prior to discharge. Patient discharge education completed by RN. Plan to follow up with provider per after visit summary as scheduled. Any changes or concerns with the surgical site contact [facility] provider. Patient and Sheeter Helper verbalized understanding and readiness for discharge. Patient belonging identified, pt and assistant men's soccer coach verbalize all belongings accounted for. Patient escorted to front door via Staxi (wheelchair) by RN/PCT per Policy. * Op Note - Jameel Roblero MD - 04/05/2024 6:38 PM CDT Procedure Date: 04[facility] OPER[facility] PREOPERATIVE DIAGNOSIS: right knee degenerative joint disease. POSTOPERATIVE DIAGNOSIS: right knee degenerative joint disease. PROCEDURE: right total knee arthroplasty. SURGEON: Jameel Roblero MD BREAD JOCKEY: Bonita Romero PA-C ANESTHESIA TYPE: Spinal with adductor canal and periarticular injection. TOURNIQUET TIME: 65 minutes. IMPLANTS: Jh Triathalon size 5 posterior stabilized femoral component, size 4 fixed bearing tibial component, 12 mm highly cross-linked posterior stabilized fixed bearing poly. DESCRIPTION OF PROCEDURE: After identification of the patient, correct extremity, review of informed consent, the patient was brought to the operating room where spinal anesthesia was induced. Perioperative antibiotics were given. A nonsterile tourniquet was applied to the operative lower extremity. The operative extremity was then prepped and draped in the usual sterile manner. After observationof surgical pause, leg was exsanguinated and tourniquet inflated. Standard midline incision was made. Dissection was taken sharply through subcutaneous tissues. Medial and lateral skin flaps were elevated. Medial release was then performed. Soft tissue was cleared from the distal anterior aspect ofthe femur. Retropatellar fat pad was excised. Patella was everted, knee was flexed. A starting reamer was placed in the femoral canal from distal femoral starting point. Distal femoral cutting guide set on a 5-degree valgus cut and a 10 mm resection was then placed and pinned. Distal femur was resected. Extramedullary tibial guide was then placed in line with the anteromedial border of the tibia on a 0-degree slope and a 10 mm resection off the lateral side consistent with preoperative templating. Proximal tibia was resected. Extension gap was then balanced with a 12mm spacer block. Knee was f lexed and then sized to a size 5 femoral component. A 4-in-1 cutting guide was then pinned in 3 degrees of external rotation. Anterior and posterior femoral cuts were made. Flexion gap was balanced with a 12 mm spacer block. Anterior, posterior and chamfer cuts were made. A 4-in-1 cutting guide wasremoved. Box cutting guide was placed. Box cut was made. Medial and lateral meniscus were excised. Osteophytes were removed from the posterior aspect of the lateral femoral condyles with a curved osteotome. The tibia was then subluxated anteriorly with a 2-prong tibial retractor, sized to a size 4 tibial component and external rotation was set at the junction of medial and middle third of the tibial tubercle. Proximal tibia was then prepared. Trial tray was left in place. Trial femoral component was impacted into place. The 12 mm fixed bearing posterior stabilized trial poly was then placed and the knee was reduced. The knee was noted to have 1 degree of hyperextension, flexion back to 130 degrees. The patella tracked centrally. The patella cartilage was noted to be intact with minimal wear. Periarticular injection was then performed. Cut ends of bone were irrigated with copious normal saline via pulse lavage. The real size 4 tibial component was then cemented in place. Real size 5 femoral component was cemented into place. The real 12 mm fixed bearing posterior stabilized, highly cross-linked poly was then impacted into place. T Cement was allowed to harden in Betadine diluted solution.After adequate hardening of the cement, the knee was again assessed for range of motion, stability and patellar tracking and was as previously noted. The knee was then placed in 90 degrees of flexion. The arthrotomy was closed with interrupted 0 Vicryl suture, 2-0 Monocryl was placed subcutaneously in the incision sites. A running self-locking absorbable 3-0 intracuticular stitch was placed. Sterile dressing was applied. Tourniquet was deflated. The patient was then recovered briefly in the operating room and transferred to the PACU for further recovery. The patient tolerated the procedure well. There were no known complications. Bonita Romero was present the entire portion of procedure. An advertising sales assistant was critical in both patient positioning, prepping and draping, deep wound closure, superficial wound closure, dressing placement and patient transfer. * Plan of Care - Regina Jones PA-C - 03/31/2024 4:55 PM CDT PREOPERATIVE ASSESSMENT NOTE Procedure(s): Right total knee arthroplasty Date of Surgery: 04/05/[address] Roblero Post-op appointment scheduled with Bonita Romero PA-C on 04/20/24 at 8:40 am at the [place] office Patient's goals after surgery: less pain Patient's concerns with upcoming surgery: none H&P Patient's pre-operative history and physical with their primary care physician was reviewed. From that, the following should be noted: -heterozygous Factor V Leiden, activated protein C resistance. No prior history of clot. -HTN, HLD -Cleared for surgery per PCP. Antibiotic use in last 14 days: no History of defibrillator or pacemaker? no Significant past medical history pertinent to surgery: See above. PONV. Denies prior history of anesthetic reactions, malignant hyperthermia or difficult intubation. History of DVT/PE or clotting disorder including Factor V Leiden? yes DVT Prophylaxis Medication Plan: Xarelto Allergies were reviewed: see preop list BMI: 35.4 Labs were reviewed and discussed, notably: 03/30/24 HGB: 14.7 Cr: 1.3 GFR: 45 (online calculator) Glucose: 130 Hgb A1c: Na: 141 K: 3.9 Prior to Admission Medications: Patient will continue the following medications: Lovastatin, amlodipine Patient will hold the following medications: losartan They understand all vitamin supplements and herbal medications should be stopped 7 days prior to surgery. They understand they should not use any aspirin, aspirin-containing products, or anti-inflammatory medication for 7 days prior to surgery. They are able to continue to use Tylenol as needed up until the day before surgery. Guidebook reference to medications was given to patient (pages 7 & 19). Patient's code status was reviewed and is Full Code. Patient does meet criteria for hospitalist comanagement. Post-Operative Discharge Planning Patient agrees with: Anticipated discharge on post-op day 1 Anticipated time of discharge between 9:00AM-12:00PM with their commercial collections driver arriving by 8:00 AM Unit Control Clerk: Suman Discharge location: home Anticipated Home Health Services: None Sheeter Helper/Family member available after discharge: home (was present for this discussion) Post-operative medication plan and education was discussed Patient's medication dosing and sig for the above medications to be determined post-operatively. In the event of a concern arising after surgery, the patient was provided with the following information: During business hours, call surgeon's long term care phlebotomist, Gudelia Osborne at [phone]. After business hours, call the on-call provider at [phone]. [facility] was discussed. They were asked to first contact [facility] for continuity of care prior to going to another urgent care or ER for issues related to their surgery. They were instructed to go to the ER promptly for any medical emergency that may arise after discharge. Further education was provided to the patient on the following topics and corresponding page numbers from the guidebook were given: CHG Soap (Hibiclens, etc) Page 22 Patient will purchase soap prior to surgery. They will follow theinstructions for showering with the soap the night before surgery and the morning of surgery. Assistive Devices Page 17/51 They understand their assistant men's soccer coach should bring their assistive device to their inpatient room after surgery. If they do not have one, their therapist will dispense one as needed. Dental Appointments Page 12 We discussed holding off on any routine dental work for 3 months. Following that timeframe, the patient understands they will use antibiotics one hour prior to any dental work, this includes routine cleanings (Amoxicillin 500mg - 4 tablets). Anesthesia Page 24 The anesthesiologist will discuss the anesthesia care plan with the patient the day of surgery. Incision/Dressing Care Page 33/42 We discussed the type of dressing the patient can expect after surgery as well as how to care for it, how to recognize increased drainage or bleeding, as well as bathing after surgery. They understand that bruising is normal after total joint surgery and will migrate down their extremity in the week following surgery. Post-Op Medications Page 29, 32, 39-41, 54(knee) 56(hip) We discussed the patient's individualized post-operative medication plan and each medication was explained and questions were answered. Guidebook references were given. The patient will likely discharge home with the following medications, patient specific dosing willbe determined post-operatively: TYLENOL - this medication helps with pain. They will take Tylenol scheduled as long as they have pain. Most patients typically need this medication for 2-3 weeks but some may need it up to 6-8 weeks.Tylenol can be taking safely with the narcotic pain medication, anti-inflammatory, and aspirin. CELEBREX - this is an anti-inflammatory medication that will be taken as prescribed after surgery. They understand they will not take another anti- inflammatory while taking this medication. OXYCODONE - this is a narcotic pain medication and should be used sparingly but used as needed for pain. They understand this is the first of the medications used for pain that they should wean from.Most patients only need this medication for 1-2 weeks after surgery. We discussed titrating the narcotic based on their level of pain as follows: 1/2-1 tablet every 4-6 hours as needed for pain rating 3-6 (moderate pain) or 1-2 tablets every 4-6 hours as needed for pain rating 7- 10 (severe pain). This medication will not be used for pain rating <3 (mild pain). SENOKOT - this stool softener/laxative combination pill will be used after surgery as needed for constipation. 1-2 tablets can be taken as needed. VISTARIL - this medication can help with muscle spasms. It can be taking with other pain medicationbut it can make you drowsy so we discussed using cautiously. They understand there is not an outpatient pharmacy at the [facility] and they will need to coal picker their post-operative medications at a pharmacy of their choice once they are discharged. Medication Refills Page 39 They understand it is best to allow at lest 48 hours for refills and that all refills can be requested through their pharmacy or directly with their surgeon's team. I did call out that any refills needed before the weekend will need to be submitted on . Pain Control Strategies Page 29 In addition to medication to control pain, we discussed non-medication strategies to helping with pain control and swelling (RICE). Icing and elevating often is extremely beneficial, we discussed a goal of 4-5 times a day for 20-30 minutes at a time. Swelling Page 31/35 Swelling will last at least 3-4 months and take a year to be as good as it's going to get. The operative side may never completely look the same as it did prior to surgery. It is normal for the swelling to cause stiffness in the morning and increase throughout the day with the most swelling being present in the evening. Swelling does go with gravity so the lower leg/arm or foot/hand will be swollen too. If swelling increases dramatically, this typically means your are being a little too active. Constipation Page 32/40 We discussed this is very common after surgery secondary to anesthesia, inactivity, and narcotic pain medication. In addition to the prescribed medication we discussed the useof Miralax, probiotics, prunes/prune juice, fiber rich diet, and hydration. In addition, increasingactivity as they are able will be helpful. They understand if they are having significant trouble they can try magnesium citrate, a suppository, or a Fleet enema. DVT Page 43 We discussed the signs, symptoms, and prophylactic treatment for DVTs post-operatively.We also discussed the importance of recognizing and reporting these symptoms. They understand they should call the office right away to report any concern for post-operative DVT. Activity Post-Operatively Page 35, 50(hip) 55(knee) The patient understands it is best to return to activity slowly and follow the instructions given to them by their surgeon's team. Having an active recovery and increasing activity as pain allows will also help reduce complications (pain, swelling, DVT, etc). General Day of Surgery Timeline Page 23 I briefly ran through what they can expect on the day of surgery after arriving at the [facility]. Avoiding a Delayed Surgery Page 10 I gave them this reference to use between now and surgery to avoid their surgery being delayed or cancelled. 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 anesthesia: general with pop block Special Needs seasonal allergies allergies: codeine derivatives(vomiting) BASIC METABOLIC PANEL Routine 04/05/2024 1:15 PM CDT HEMOGRAM Routine 04/05/2024 1:15 PM CDT US ANES REFERENCE STAT 04/05/2024 1:0 4 PM CDT documented in this encounter Results * HEMOGLOBIN (04/06/2024 5:47 AM CDT) HGB 13.3 12.0 - 16.0 g/dl 04/06/2024 6:27 AM CDT [facility] Blood BLOOD SPECIMEN / Unknown Venipuncture / Unknown 04/06/2024 5:47 AM CDT 04/06/2024 6:10 AM CDT Bonita Romero PA-C EC HEMATOLOGY ORDERABLES Final Result [facility] [address] [place] [address] * (ABNORMAL) BASIC METABOLIC PANEL (04/05/2024 1:15 PM CDT) Sodium 138 135 - 144 mmol/L 04/05/2024 1:52 PM CDT [facility] Potassium 4.7 3.4 - 5.1 mmol/L 04/05/2024 1:52 PM CDT [facility] Chloride 103 98 - 107 mmol/L 04/05/2024 1:52 PM CDT [facility] Carbon Dioxide 31(H) 22 - 30 mmol/L 04/05/2024 1:52 PM CDT [facility] Calcium 9.4 8.6 - 10.3 mg/dL 04/05/2024 1:52 PM CDT [facility] Glucose 105(H) 74 - 100 mg/dL 04/05/2024 1:52 PM CDT [facility] Blood Urea nitrogen 28(H) 7 - 17 mg/dL 04/05/2024 1:52 PM CDT [facility] Creatinine 1.20(H) 0.52 - 1.04 mg/dL 04/05/2024 1:52 PM CDT [facility] Anion Gap 4(L) 5 - 15 mmol/L 04/05/2024 1:52 PM CDT [facility] Glomerular Filtration Rate 49(L) >60 mL/min/1.7 3 m*2 04/05/2024 1:52 PM CDT [facility] Comment:This calculation use s CKD-EPI 2020 equation; it has not been validated in women. Blood BLOOD SPECIMEN / Unknown Venipuncture / Unknown 04/05/2024 1:15 PM CDT 04/05/2024 1:18 PM CDT us Conner Dunne PA-C EC CHEMISTRY ORDERABLES Fin al Result [facility] [address] [place] [address] * (ABNORMAL) HEMOGRAM (04/05/2024 1:15 PM CDT) WBC 8.9 4.0 - 11.0 10*3/uL 04/05/2024 1:52 PM CDT [facility] RBC 5.03 3.80 - 5.20 10*6/uL 04/05/2024 1:52 PM CDT [facility] HGB 15.2 12.0 - 16.0 g/dl 04/05/2024 1:52 PM CDT [facility] HCT 46.1 35.0 - 47.0 % 04/05/2024 1:52 PM CDT [facility] MCV 91.7 80 - 98 fL 04/05/2024 1:52 PM CDT [facility] MCH 30.2 27.0 - 34.0 pg 04/05/2024 1:52 PM CDT [facility] MCHC 33.0 32 - 36 g/dl 04/05/2024 1:52 PM CDT [facility] PLT 226 150 - 420 10*3/uL 04/05/2024 1:52 PM CDT [facility] RDW-CV 11.4(L) 11.6 - 14.4 % 04/05/2024 1:52 PM CDT [facility] RDW-SD 39.4 36.5 - 46.3 fL 04/05/2024 1:52 PM CDT [facility] Blood BLOOD SPECIMEN / Unknown Venipuncture / Unknown 04/05/2024 1:15 PM CDT 04/05/2024 1:18 PM CDT us Conner Dunne PA-C EC HEMATOLOGY ORDERABLES Fi nal Result [facility] [address] [place] [address] * US ANES REFERENCE (04/05/2024 1:04 PM CDT) Narrative Inga, User - 04/05/2024 1:04 PM CDT There is not a diagnostic result associated with the image(s). ??Please refer to either the Notes/Trans, Procedures, LDA or Anesthesia tab in the patients chart for clinical information the performing provider may have documented. The actual image(s) were acquired at the ?? on ??. This order was placed into the system and automatically finalized on 04/05/2024. us Roc Sow DO EC OS FILMS IMAGING ORDERABLE S Final Result documented in this encounter Visit Diagnoses Not on filedocumented in this encounter Administered Medications Inactive Administered Medications Medication Order MAR Action Action Date Dose Rate Site acetaminophen (Tylenol) tablet 1,000 mg 1,000 mg, Oral, ONCE, 1 dose, On Fri04/05/24 at 1330 Given 04/05/2024 1:42 PM CDT 1,000 mg acetaminophen (Tylenol) tablet 1,000 mg 1,000 mg, Oral, 3 TIMES DAILY, First dose on Fri04/05/24 at 2100, Until Discontinued Given 04/06/2024 8:06 AM CDT 1,000 mg Given 04/05/2024 10:26 PM CDT 1,000 mg ceFAZolin (ANCEF) 2 g in dextrose 4% IVPB 100 mL 2,000 mg, Intravenous, at 200 mL/hr, *EVERY 8 HOURS, 2 doses, First dose on Fri04/06/24 at 0100, Last dose on Fri04/06/24 at 0900, Indication? surgical prophylaxis New Bag 04/06/2024 8:40 AM CDT 2,000 mg 200 mL/hr New Bag 04/06/2024 12:58 AM CDT 2,000 mg 200 mL/hr celecoxib (CeleBREX) capsule 100 mg 100 mg, Oral, 2 TIMES DAILY, First dose on Fri04/05/24 at 2100, Until Discontinued Given 04/06/2024 8:06 AM CDT 100 m g Given 04/05/2024 10:27 PM CDT 100 mg ethyl alcohol nasal 62 % swab Nasal, ONCE, 1 dose, On Fri04/05/24 at 1330 Given 04/05/2024 1:42 PM CD T 2 Swabs ethyl alcohol nasal 62 % swab Nasal, 2 (two) times daily, First dose on Fri04/05/24 at 2100, Until Discontinued Given 04/06/2024 8:07 AM CDT 1 Swa b Given 04/05/2024 10:27 PM CDT HYDROmorphone (Dilaudid) injection 0.5 mg 0.5 mg, IV Push, EVERY 10 MIN NEEDED, 8 doses, Starting on Fri04/05/24 at 1859, Until Fri04/05/24 at 1955, Moderate Pain (4-6) Given 04/05/2024 7:39 PM CDT 0.5 mg Given 04/05/2024 7:26 PM CDT 0.5 mg hydrOXYzine (VISTARIL) injection 25 mg 25 mg, Intramuscular, NEEDED, 2 doses, Starting on Fri04/05/24 at 1859, Until Fri04/05/24 at 195, Other, augmented effects of narcotics muscle relaxant, anxiety, pruritus Given 04/05/2024 7:27 PM CDT 25 mg Left Thigh lactated ringers infusion 10-50 mL/hr, Intravenous, CONTINUOUS, Starting on Fri04/05/24 at 1330, Until Fri04/06/24 at 1423 Continued From PreOp-(Anes) 04/05/2024 5:16 PM CDT 10 mL/hr Restarted 04/05/2024 5:14 PM CDT New Bag 04/05/2024 1:51 PM CDT 10 mL/hr 10 mL/hr lactated ringers infusion Intravenous, at 75 mL/hr, CONTINUOUS, Starting on Fri04/05/24 at 2030, Until Fri04/06/24 at 1423 New Bag 04/05/2024 8:15 PM CDT 75 mL/hr losartan (Cozaar) tablet 100 mg 100 mg, Oral, ONCE DAILY, First dose on Fri04/06/24 at 0800, Until Discontinued Given 04/06/2024 8:05 AM CDT 100 mg meperidine (Demerol) injection 12.5 mg 12.5 mg, IV Push, EVERY 10 MIN NEEDED, 4 doses, Starting on Fri04/05/24 at 1859, Until Fri04/05/24 at 1955, Other, Prolonged significant shivering Given 04/05/2024 7:17 PM CDT 12.5 mg midazolam (Versed) injection 2 mg 2 mg, IV Push, ONCE, 1 dose, On Fri04/05/24 at 1330 Given 04/05/2024 3:15 PM CDT 2 mg ondansetron (Zofran ODT) disintegrating tablet 4 mg 4 mg, Oral, EVERY 6 HOURS NEEDED, Starting on Fri04/05/24 at 2011, Until Fri04/06/24 at 1423, Nausea, Vomiting ondansetron (Zofran) injection 4 mg 4 mg, IV Push, EVERY 6 HOURS NEEDED, Starting on Fri04/05/24 at 2011, Until Fri04/06/24 at 1423, Nausea, Vomiting pantoprazole (Protonix) tablet 40 mg 40 mg, Oral, ONCE DAILY, First dose on Fri04/06/24 at 0800, Until Discontinued Given 04/06/2024 8:06 AM CDT 40 mg pregabalin (Lyrica) capsule 75 mg 75 mg, Oral, ONCE, 1 dose, On Fri04/05/24 at 1330 Given 04/05/2024 1:42 PM CDT 75 mg prochlorperazine (COMPAZINE) injection 5 mg 5 mg, IV Push, EVERY 6 HOURS NEEDED, Starting on Fri04/05/24 at 2011, Until Fri04/06/24 at 1423, Nausea, Vomiting prochlorperazine (Compazine) tablet 5 mg 5 mg, Oral, EVERY 6 HOURS NEEDED, Starting on Fri04/05/24 at 2011, Until Fri04/06/24 at 1423, Nausea, Vomiting rivaroxaban (Xarelto) tablet 10 mg 10 mg, Oral, Daily with Breakfast, First dose on Fri04/06/24 at 0800, Until Discontinued, Indication for Use: VTE Prophylaxis Given 04/06/2024 8:05 AM CDT 10 mg ROPivacaine (Naropin) 150 mg, EPINEPHrine (Adrenalin) 0.3 mg in sodium chloride 0.9% (NS) 19.7 mL solution 50 mL, Infiltration, ONCE NEEDED, 1 dose, Starting on Fri04/05/24 at 1530, Until Fri04/05/24 at 1757, Other, field block Given 04/05/2024 5:57 PM CDT Right Knee Joint rosuvastatin (Crestor) tablet 10 mg 10 mg, Oral, ONCE DAILY, First dose on Fri04/06/24 at 0800, Until Discontinued Given 04/06/2024 8:05 AM CDT 10 mg senna-docusate (Senokot-S) 8.6-50 MG per tablet 1 Tablet 1 Tablet, Oral, 2 TIMES DAILY, First dose on Fri04/05/24 at 2100, Until Discontinued Given 04/06/2024 8:08 AM CDT 1 Tablet Given 04/05/2024 10:26 PM CDT 1 Tablet documented in this encounter Discontinued Medications Medication Sig Discontinue Reason Start Date End Da te lovastatin (Mevacor) 10 MG tablet Take 10 mg by mouth one time a day. Deleted via home med review 04/05/2024 rivaroxaban (Xarelto) 10 MG tablet Take 1 Tablet by mouth one time a day with breakfast. Take with food. 04/05/2024 04/06/2024 rivaroxaban (Xarelto) 10 MG tablet Take 1 Tablet by mouth one time a day with breakfast. Take with food. 04/06/2024 04/06/2024 documented as of this encounter Historical Medications * This list may reflect changes made after this encounter. Calcium Citrate-Vitamin D (CALCIUM CITRATE + D3 OR) Take 1 Tablet by mouth one time a day. rosuvastatin (Crestor) 10 MG tablet Take 10 mg by mouth one time a day. losartan (Cozaar) 100 MG tablet Take 100 mg by mouth one time a day. amLODIPine (Norvasc) 10 MG tablet Take 5 mg by mouth at bedtime. lovastatin (Mevacor) 10 MG tablet Take 10 mg by mouth one time a day. 04/05/2024 added in this encounter Active and Recently Administered Medications Times are shown in CDT. Scheduled Medication Order 04/04/2024 04/05/2024 04/06/2024 acetaminophen (Tylenol) tablet 1,000 mg (COMPLETED) 1,000 mg, Oral, ONCE, 1 dose, On Fri04/05/24 at 1330 1342 (Given - Provider: Naomi Bonilla RN) acetaminophen (Tylenol) tablet 1,000 mg 1,000 mg, Oral, 3 TIMES DAILY, First dose on Fri04/05/24 at 2100, Until Discontinued 2226 (Given - Provider: Bria Jara RN) 0806 (Given - Provider: Magdaleno S Kohagen, RN) amLODIPine (Norvasc) tablet 5 mg 5 mg, Oral, EVERY EVENING, First dose on Fri04/05/24 at 2100, Until Discontinued 2041 (Not Given - Provider: Siri Galarza RN - Reason: Provider Order) BUPivacaine 0.25% - EPINEPHrine 1:200,000 PF (Marcaine, Sensorcaine-EPINEPHrine) PF injection 1-30 mL (COMPLETED) 1-30 mL, Infiltration, ONCE, 1 dose, On Fri04/05/24 at 1330 1519 (Given - Provider: Anselmo Bhatka MD) ceFAZolin (ANCEF) 2 g in dextrose 4% IVPB 100 mL (COMPLETED) 2,000 mg, Intravenous, at 200 mL/hr, ONCE, 1 dose, On Fri04/05/24 at 1330, Indication? surgical prophylaxis 171 (Given - Provider: Adria Hartley APRN, SUPERINTENDENT CONTAINER TERMINAL) ceFAZolin (ANCEF) 2 g in dextrose 4% IVPB 100 mL (COMPLETED) 2,000 mg, Intravenous, at 200 mL/hr, *EVERY 8 HOURS, 2 doses, First dose on Fri04/06/24 at 0100, Last dose on Fri04/06/24 at 0900, Indication? surgical prophylaxis 0058 (New Bag - Provider: Bria Jara RN)0130 (Stopped - Provider: Bria Jara RN)0840 (New Bag - Provider: Ewelina Nielsen RN)0910 (Stopped - Provider: Magdaleno Quintero RN) celecoxib (CeleBREX) capsule 100 mg 100 mg, Oral, 2 TIMES DAILY, First dose on Fri04/05/24 at 2100, Until Discontinued 2226 (Given - Provider: Bria Jara RN) 0806 (Given - Provider: Magdaleno Quintero RN) ethyl alcohol nasal 62 % swab (COMPLETED) Nasal, ONCE, 1 dose, On Fri04/05/24 at 1330 1342 (Given - Provider: Naomi Bonilla RN) ethyl alcohol nasal 62 % swab Nasal, 2 (two) times daily, First dose on Fri04/05/24 at 2100, Until Discontinued 2226 (Given - Provider: Bria Jara RN) 0807 (Given - Provider: Magdaleno Quintero RN) losartan (Cozaar) tablet 100 mg 100 mg, Oral, ONCE DAILY, First dose on Fri04/06/24 at 0800, Until Discontinued 804 (Given - Provid er: Magdaleno Quintero RN) midazolam (Versed) injection 2 mg (COMPLETED) 2 mg, IV Push, ONCE, 1 dose, On Fri04/05/24 at 1330 1515 (Given - Provider: Naomi Bonilla RN) pantoprazole (Protonix) tablet 40 mg 40 mg, Oral, ONCE DAILY, First dose on Fri04/06/24 at 0800, Until Discontinued 805 (Given - Provid er: Magdaleno Quintero RN) polyethylene glycol 3350 (Glycolax, Miralax) packet 17 g 17 g, Oral, ONCE DAILY, First dose on Fri04/06/24 at 0900, Until Discontinued 828 (Not Given - Provider: Magdaleno Quintero RN - Reason: IV Infusing) pregabalin (Lyrica) capsule 75 mg (COMPLETED) 75 mg, Oral, ONCE, 1 dose, On Fri04/05/24 at 1330 1342 (Given - Provider: Naomi Bonilla RN) rivaroxaban (Xarelto) tablet 10 mg 10 mg, Oral, Daily with Breakfast, First dose on Fri04/06/24 at 0800, Until Discontinued, Indication for Use: VTE Prophylaxis 804 (Given - Provid er: Magdaleno Quintero RN) rosuvastatin (Crestor) tablet 10 mg 10 mg, Oral, ONCE DAILY, First dose on Fri04/06/24 at 0800, Until Discontinued 804 (Given - Provid er: Magdaleno Quintero RN) senna-docusate (Senokot-S) 8.6-50 MG per tablet 1 Tablet 1 Tablet, Oral, 2 TIMES DAILY, First dose on Fri04/05/24 at 2100, Until Discontinued 2225 (Given - Provider: Bria Jara RN) 807 (Given - Provider: Magdaleno Quintero RN) sodium chloride 0.9% IV FLUSH (NS) SYRINGE 5 mL 5 mL, IV Flush, EVERY 8 HOURS, First dose on Fri04/05/24 at 2200, Until Discontinued 2226 (Not Given - Provider: Bria K Onsoti, RN - Reason: IV Infusing) 0720 (Not Given - Provider: Bria Jara RN - Reason: IV Infusing) tranexamic acid (Cyklokapron) 1000 mg in sodium chloride 0.7% 100 mL (premix) (COMPLETED) 1,000 mg, Intravenous, at 200 mL/hr, ONCE, 1 dose, On Fri04/05/24 at 1330 1728 (Given - Provider: Adria Hartley APRN, JAYDEN) tranexamic acid (Cyklokapron) 1000 mg in sodium chloride 0.7% 100 mL (premix) (COMPLETED) 1,000 mg, Intravenous, at 200 mL/hr, ONCE, 1 dose, On Fri04/05/24 at 1330 1825 (Given - Provider: Adria Hartley APRN, CRNA) Continuous Medication Order 04/04/2024 04/05/2024 04/06/2024 lactated ringers infusion 10-50 mL/hr, Intravenous, CONTINUOUS, Starting on Fri04/05/24 at 1330, Until Fri04/06/24 at 1423 1351 (New Bag - Provider: Naomi Bonilla RN)1713 (Paused - Provider: Adria Hartley APRN, CRNA - Comment: Switch to gravity)1714 (Restarted - Provider: Adria Hartley APRN, CRNA - Comment: given in pre-op)1716 (Continued From PreOp-(Anes) - Provider: Adria Hartley APRN, CRNA)1852 (Anesthesia Volume Adjusted - Provider: Adria Hartley APRN, CRNA) 1423 (Due: Stopped - Provider: [employer]) lactated ringers infusion Intravenous, at 75 mL/hr, CONTINUOUS, Starting on Fri04/05/24 at 2030, Until Fri04/06/24 at 1423 2014 (New Bag - Provider: Bria Jara RN) 1423 (Due: Stopped - Provider: [employer]) PRN Medication Order 04/04/2024 04/05/2024 04/06/2024 bisacodyl (Dulcolax) suppository 10 mg 10 mg, Rectal, ONE TIME DAILY NEEDED, Starting on Fri04/05/24 at 2012, Until Fri04/06/24 at 1423, Constipation HYDROmorphone (Dilaudid) injection 0.25-0.5 mg 0.25-0.5 mg, IV Push, EVERY 2 HOURS NEEDED, Starting on Fri04/05/24 at 2011, Until Fri04/06/24 at 1423, Moderate Pain (4-6), Severe Pain (7-10) HYDROmorphone (Dilaudid) injection 0.5 mg (CANCELED) 0.5 mg, IV Push, EVERY 10 MIN NEEDED, 8 doses, Starting on Fri04/05/24 at 1859, Until Fri04/05/24 at 1955, Moderate Pain (4-6) 192 (Given - Provider: Chrystal Vasquez RN)193 (Given - Provider: Chrystal Vasquez RN) hydrOXYzine (VISTARIL) injection 25 mg (CANCELED) 25 mg, Intramuscular, NEEDED, 2 doses, Starting on Fri04/05/24 at 1859, Until Fri04/05/24 at 1955, Other, augmented effects of narcotics muscle relaxant, anxiety, pruritus 1926 (Given - Provider: Chrystal Vasquez RN) hydrOXYzine HCl (Atarax) tablet 10 mg 10 mg, Oral, EVERY 6 HOURS NEEDED, Starting on Fri04/05/24 at 2011, Until Fri04/06/24 at 1423, Other, Muscle Spasms magnesium hydroxide (Milk of Magnesia) 400 MG/5ML suspension 30 mL 30 mL, Oral, ONE TIME DAILY NEEDED, Starting on Fri04/05/24 at 2011, Until Fri04/06/24 at 1423, Constipation meperidine (Demerol) injection 12.5 mg (CANCELED) 12.5 mg, IV Push, EVERY 10 MIN NEEDED, 4 doses, Starting on Fri04/05/24 at 1859, Until Fri04/05/24 at 1955, Other, Prolonged significant shivering 191 (Given - Provider: Chrystal Vasquez RN) naloxone (Narcan) injection 0.1 mg 0.1 mg, IV Push, EVERY 3 MINUTES NEEDED, Starting on Fri04/05/24 at 2011, Until Fri04/06/24 at 1423, Respiratory Depression, Other, DIRECTOR OF PROGRAM MANAGEMENT depression ondansetron (Zofran ODT) disintegrating tablet 4 mg(Linked Group 1) 4 mg, Oral, EVERY 6 HOURS NEEDED, Starting on Fri04/05/24 at 2011, Until Fri04/06/24 at 1423, Nausea, Vomiting ondansetron (Zofran) injection 4 mg(Linked Group 1) 4 mg, IV Push, EVERY 6 HOURS NEEDED, Starting on Fri04/05/24 at 2011, Until Fri04/06/24 at 1423, Nausea, Vomiting oxyCODONE (Roxicodone) immediate release tablet 2.5-5 mg 2.5-5 mg, Oral, EVERY 4 HOURS NEEDED, Starting on Fri04/05/24 at 2011, Until Fri04/06/24 at 1423, Moderate Pain (4-6), Severe Pain (7-10) prochlorperazine (COMPAZINE) injection 5 mg(Linked Group 2) 5 mg, IV Push, EVERY 6 HOURS NEEDED, Starting on Fri04/05/24 at 2011, Until Fri04/06/24 at 1423, Nausea, Vomiting prochlorperazine (Compazine) tablet 5 mg(Linked Group 2) 5 mg, Oral, EVERY 6 HOURS NEEDED, Starting on Fri04/05/24 at 2011, Until Fri04/06/24 at 1423, Nausea, Vomiting ROPivacaine (Naropin) 150 mg, EPINEPHrine (Adrenalin) 0.3 mg in sodium chloride 0.9% (NS) 19.7 mL solution (COMPLETED) 50 mL, Infiltration, ONCE NEEDED, 1 dose, Starting on Fri04/05/24 at 1530, Until Fri04/05/24 at 1757, Other, field block 1757 (Given - Provider: Magdy Roblero MD) sodium chloride 0.9% IV FLUSH (NS) SYRINGE 5 mL 5 mL, IV Flush, NEEDED, Starting on Fri04/05/24 at 2011, Until Fri04/06/24 at 1423, Other, IV Line Flushing sodium phophate (Fleet) 7-19 GM/118ML enema 1 Enema 1 Enema, Rectal, ONE TIME DAILY NEEDED, Starting on Fri04/05/24 at 2011, Until Fri04/06/24 at 1423, Constipation, For constipation refractory to SENAKOT-S or DULCOLAX Linked Groups Order Group 1: ondansetron (Zofran) injection 4 mgJump to med 4 mg, IV Push, EVERY 6 HOURS NEEDED, Starting on Fri04/05/24 at 2011, Until Fri04/06/24 at 1423, Nausea, Vomiting Or ondansetron (Zofran ODT) disintegrating tablet 4 mgJump to med 4 mg, Oral, EVERY 6 HOURS NEEDED, Starting on Fri04/05/24 at 2011, Until Fri04/06/24 at 1423, Nausea, Vomiting Group 2: prochlorperazine (Compazine) tablet 5 mgJump to med 5 mg, Oral, EVERY 6 HOURS NEEDED, Starting on Fri04/05/24 at 2011, Until Fri04/06/24 at 1423, Nausea, Vomiting Or prochlorperazine (COMPAZINE) injection 5 mgJump to med 5 mg, IV Push, EVERY 6 HOURS NEEDED, Starting on Fri04/05/24 at 2011, Until Fri04/06/24 at 1423, Nausea, Vomiting documented in this encounter Orders Medications Ordered That Ervin ht Not Have Been Administered Count Last Ordered Date First Ordered Date amLODIPine (Norvasc) tablet 5 mg 1 04/05/20 bisacodyl (Dulcolax) suppository 10 mg 1 BUPivacaine 0.25% - EPINEPHr ine 1:200,000 PF (Marcaine, Sensorcaine-EPINEPHrine) PF injection 1-30 mL 1 04/05/2024 ceFAZolin (ANCEF) 2 g in dex trose 4% IVPB 100 mL 1 04/05/2024 diphenhydrAMINE (Benadryl) injection 25 mg 04/05/2024 ePHEDrine IV syringe 25 mg/5 mL HYDROmorphone (Dilaudid) inj ection 0.25-0.5 mg 1 04/05/2024 HYDROmorphone (Dilaudid) injection 1 mg 1 0 04/05/2024 hydrOXYzine HCl (Atarax) tablet 10 mg 1 03/2024 magnesium hydroxide (Milk of Magnesia) 400 MG/5ML suspension 30 mL 1 04/05/2024 naloxone (Narcan) injection 0.1 mg 2023 naloxone (Narcan) injection 0.2 mg 1 2023 ondansetron (Zofran ODT) dis integrating tablet 4 mg 1 04/05/2024 ondansetron (Zofran) injection 4 mg 2 04/05 oxyCODONE (Roxicodone) immed iate release tablet 2.5-5 mg 1 04/05/2024 phenylephrine (Biorphen) 0.5 MG/5ML injection 0.05 mg 1 04/05/2024 polyethylene glycol 3350 (Gl ycolax, Miralax) packet 17 g 1 04/05/2024 prochlorperazine (COMPAZINE) injection 5 mg 1 04/05/2024 prochlorperazine (Compazine) tablet 5 mg 1 04/05/2024 sodium chloride 0.9% IV FLUS H (NS) SYRINGE 5 mL 2 04/05/2024 sodium phophate (Fleet) 7-19 GM/118ML enema 1 Enema 1 04/05/2024 tranexamic acid (Cyklokapron ) 1000 mg in sodium chloride 0.7% 100 mL (premix) 2 04/05/2024 Admission Count Last Ordered Date First Orde red Date ASSIGN TO OUTPATIENT 1 04/05/2024 Discharge Count Last Ordered Date First Orde red Date DISCHARGE PATIENT 1 04/05/2024 Nursing Count Last Ordered Date First Orde red Date ACTIVITY ORDER (SPECIFY) 5 04/05/2024 DISCHARGE DIET 1 04/05/2024 DISCHARGE INSTRUCTIONS 9 04/05/2024 FOLLOW UP 1 04/05/2024 NOTIFY PHYSICIAN (SPECIFY) 3 04/05/2024 POST OPERATIVE INSTRUCTIONS 2 04/05/2024 PROVIDE MEDICATION INSTRUCTIONS 6 RESTRICTIONS FOR PATIENT AFTER DISCHARGE 1 04/05/2024 WOUND CARE INSTRUCTIONS 3 04/05/2024 Consult Count Last Ordered Date First Orde red Date ANESTHESIA FOLLOW UP 1 04/05/2024 documented in this encounter Care Teams Mica Laminating Machine Feeder Relationship Specialty Start Date End Date Elsewhere, Pcp PCP - General 03/24/24 documented as of this encounter
--- OUTSIDE RECORDS SUMMARY | 2024-06-01 09:44 | XMS_ITS | Continuity of Care Document ---
Author Organization [facility] Address [address] [place] [address] Phone Care Team Providers Care Vinyl Top Installer Name Role Phone Jovanni David MD Unavailable Unavailable Allergies, Adverse Reactions, Alerts Substance Reaction Status Criticality No Known Allergies Active No Inform ation Medications Medication Instructions Dosage Effective Dates (start - stop) Status Comments LISINOPRIL (unknown strength) Not Available - Active Procedures Procedure Date Office/Outpatient Visit,[facility] 2017 Advance Directives Directive Yes / No Effective Date File Name No Information Encounters Encounter Description Practice Location Reason(s) For Visit Diagnoses Date Provider Providers Copied on Encounter [facility], [address], [place], [place], [id number] , [place] tel: [phone] [facility] No Information 8 Frankie Baig. [facility], [address] [place] [address], [address], [place], [place], [id number] , [place]. tel: [phone] Office/Outpat ient Visit,[facility], [address], [place], [place], [id number] , [place] tel: [phone] [facility] [place] Spinal stenosis, lumbar region without neurogenic claudicationOther intervertebral disc displacement, lumbar regionRadiculopath y, lumbar region 8 Panvica Niko. [facility], [address], [address], [place], [place], [id number] , [place]. tel: [phone] Referring Provider: Wisam Velásquez , [place] [address] [address], [place], [address]. tel:[phone] Family History Family Member Type Diagnosis Age At Onset No Information Payers Payer name Insurance type Covered republican ID Authoriza tion(s) No Information Social History [...]
--- OUTSIDE RECORDS SUMMARY | 2024-06-01 09:44 | XMS_ITS | Encounter Summary ---
Author Organization [facility] Address [address] [address] Phone Care Team Providers Care Lens Finisher Name Role Phone Elsewhere, Pcp Primary Care Provider Unavailabl e Encounter Details Date Type Department Care Team (Latest Contact Info) Description 03/31/2024 Travel Social History Tobacco Use Types Packs/Day Years Used Date Smoking Tobacco: Never Smokeless Tobacco: Never Alcohol Use Standard Drinks/Week Comments Yes 0 (1 standard drink = 0.6 oz pur e alcohol) 2 drinks monthy IP Custom IPV Answer Date Recorded Do [...] on file documented as of this encounter Plan of Treatment Not on file documented as of this encounter Visit Diagnoses Not on filedocumented in this encounter Care Teams Lens Finisher Relationship Specialty Start Date End Date Elsewhere, Pcp PCP - General 03/24/24 documented as of this encounter
--- OUTSIDE RECORDS SUMMARY | 2024-06-01 09:44 | XMS_ITS | Encounter Summary ---
Author Organization [facility] Address [address] [address] Phone Care Team Providers Care Insurance Adjustor Name Role Phone Elsewhere, Pcp Primary Care Provider Unavailabl e Reason for Visit * Auth/Cert Specialty Diagnoses / Procedures Referred By Contac t Referred To Contact Diagnoses Osteoarthritis of the right knee M17.11 Procedures TOTAL KNEE REPLACEMENT Right total knee arthroplasty Jameel Roblero MD [address] [place] [phone] Phone: tel: fax: Referral ID Status Reason Start Date Expiration Date Visits Re quested Visits Authorized [id number] 1 1 Encounter Details Date Type Department Care Team (Latest Contact Info) Description 04/05/2024 12:49 PM CDT - 04/06/2024 10:23 AM CDT Hospital Encounter [address] [phone] Jameel Roblero MD [address] [place] [phone] S/P total knee arthroplasty, right (Primary Dx) Discharge Disposition: Home and/or Self Care Social History Tobacco Use Types Packs/Day Years Used Date Smoking Tobacco: Never Smokeless Tobacco: Never Tobacco Cessation:Counseling Given: Not Answered Alcohol Use Standard Drinks/Week Comments Yes 0 (1 standard drink = 0.6 oz pur e alcohol) 2 drinks monthy [facility] Utilities Answer Date Recorded In the past 12 months has [facility] [employer], oil, or [email or web address] threatened to shut off services in your [...] any time in the past 12 m [facility], were you homeless or living in a alf (including now)? No 04/05/2024 EH IP Custom [...] Sign Reading Time Taken Comments Blood Pressure 140/70 04/06/2024 8:04 AM CDT Pulse 70 04/06/2024 8:04 AM CDT Temperature 35.8 ??C (96.4 ??F) 04/06/2024 8:04 AM CD T Respiratory Rate 18 04/06/2024 12:34 AM CDT Oxygen Saturation 93% 04/06/2024 8:04 AM CDT Inhaled Oxygen Concentration - - Weight [...] Provider. Follow Up Instructions: Jameel Roblero MD [facility] [place] [address] [facility] [id number] Go on 04/20/2024 POST-OP APPOINTMENT SCHEDULED WITH BONITA ROMERO PA-C AT THE [place] [facility] AT 8:40 AM. Skilled Services Certification/Face [...] Means Destination Comment s Home and/or Self Skilled Nursing documented in this encounter Progress Notes * [...] bowel regimen, anticoagulation and discharge. HTN Resume BOATHOUSE KEEPER Losartan, amlodipine POD1 with hold parameters Hydralazine [...] - 04/05/2024 5:32 PM CDT Physical Therapy In Home Caregiver checked on status of patient for initiation [...] bowel regimen, anticoagulation and discharge. HTN Resume BOATHOUSE KEEPER Losartan, amlodipine POD1 with hold parameters Hydralazine as needed for breakthrough HTN. HLD Continue statin Obesity BMI>30 with associated comorbidities. Counseled lifestyle modifications. CKD II Avoid nephrotoxins Avoid hypotension Ashley Cristina PA-C Hospitalist * Lisa Cristobal, RN - 03/25/2024 11:02 AM CDT 03/25/24 1000 [...] Plan Verified Length of Stay Overnight stay Surgical Coordinator name & phone number Myra Ortiz [phone] Will your dramatic coach be the one picking you up [...] Pre-op H&P date 03/30/24 Pre-op H&P location [facility] Dr. Dela Cruz What device(s) doyou have [...] post operatively. Therapeutic Activity: Skilled therapeutic education, alcohol and drug counselor and activity modification was providedto patient for the purpose and intent of improving functional mobility and activities of daily living. Therapist provided education regarding the following topics; Durable Medical Equipment- therapist provided skilled assessment and alcohol and drug counselor throughout encounter regarding durable medical equipment [...] Time: 40 minutes Evaluation Low - Complexity (39417) Gait Training (91601) = 8 minutes Therapeutic Exercise (96151) = 15 minutes * Care Plan - Magdaleno Quintero RN - 04/06/2024 9:08 AM CDT Patient is A&Ox4, IV removed prior to discharge and VSS on RA. BP slightly elevated and BOATHOUSE KEEPER meds restarted this morning. Pain is well controlled with scheduled tylenol and ice. Patient is voidingadequately and tolerating a regular diet. Patient gets up with 1, GB and walker. Aquacel Ag dressing is C/D/I and CMS intact, edema wear in place. Plan is for patient to discharge home today with dramatic coach/ Suman. All questions and concerns will be addressed prior to discharge. Patient discharge education completed by RN. Plan to follow up with provider per after visit summary as scheduled. Any changes or concerns with the surgical site contact [facility] provider. Patient and Surgical Coordinator verbalized understanding and readiness for discharge. Patient belonging identified, pt and dramatic coach verbalize all belongings accounted for. Patient escorted to front door via Staxi (wheelchair) by RN/PCT per Policy. * Op Note - Jameel Roblero MD - 04/05/2024 6:38 PM CDT Procedure Date: 04/05/24 [facility] OPERATIVE NOTE PREOPERATIVE DIAGNOSIS: right knee degenerative joint disease. POSTOPERATIVE DIAGNOSIS: right knee degenerative joint disease. PROCEDURE: right total knee arthroplasty. SURGEON: Jameel Roblero MD TOOL AND EQUIPMENT RENTAL CLERK: Bonita Romero PA-C ANESTHESIA TYPE: Spinal with adductor canal and periarticular injection. TOURNIQUET TIME: 65 minutes. IMPLANTS: [place] Triathalon size 5 posterior stabilized femoral component, [...] present the entire portion of procedure. An hotel assistant general manager was critical in both patient positioning, prepping and draping, deep wound closure, superficial wound closure, dressing placement and patient transfer. * Plan of Care - Regina Jones PA-C - 03/31/2024 4:55 PM CDT PREOPERATIVE ASSESSMENT NOTE Procedure(s): Right total knee arthroplasty Date of Surgery: 04/05/[address] Roblero Post-op appointment scheduled with Bonita Romero PA-C on 04/20/24 at 8:40 am at the [place] office Patient's goals after surgery: less pain [...] time of discharge between 9:00AM-12:00PM with their hazmat tanker driver arriving by 8:00 AM Marble Worker: , Suman Discharge location: home Anticipated Home Health Services: None Surgical Coordinator/Family member available after discharge: home (was present for this discussion) Post-operative medication plan and education was discussed Patient's medication dosing and sig for the above medications to be determined post-operatively. In the event of a concern arising after surgery, the patient was provided with the following information: During business hours, call surgeon's health care coach, Gudelia Osborne at [phone]. After business hours, call the on-call provider at [phone]. [facility] was discussed. They [...] Assistive Devices Page 17/51 They understand their dramatic coach should bring their assistive device to [...] is not an outpatient pharmacy at the [facility] and they will need to pickle maker their post-operative medications at a pharmacy of [...] of surgery after arriving at the [facility]. Avoiding a Delayed Surgery Page 10 I gave them this reference to use between now and surgery to avoid their surgery being delayed or cancelled. 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 pt has factor 5 gene but has [...] - 16.0 g/dl 04/06/2024 6:27 AM CDT [facility] Blood BLOOD SPECIMEN / Unknown Venipuncture / Unknown 04/06/2024 5:47 AM CDT 04/06/2024 6:10 AM CDT Bonita Romero PA-C EC HEMATOLOGY ORDERABLES Final Result Performing Organization Address [facility]/State/ZIP Co de Phone Number [facility] [address] [place] [address] * (ABNORMAL) BASIC METABOLIC PANEL (04/05/2024 1:15 PM CDT) Sodium 138 135 - 144 mmol/L 04/05/2024 1:52 PM CDT [facility] Potassium 4.7 3.4 - 5.1 mmol/L 04/05/2024 1:52 PM CDT [facility] Chloride 103 98 - 107 mmol/L 04/05/2024 1:52 PM CDT [facility] Carbon Dioxide 31(H) 22 - 30 mmol/L 04/05/2024 1:52 PM CDT [facility] Calcium 9.4 8.6 - 10.3 mg/dL 04/05/2024 1:52 PM CDT [facility] Glucose 105(H) 74 - 100 mg/dL 04/05/2024 1:52 PM CDT [facility] Blood Urea nitrogen 28(H) 7 - 17 mg/dL 04/05/2024 1:52 PM CDT [facility] Creatinine 1.20(H) 0.52 - 1.04 mg/dL 04/05/2024 1:52 PM CDT [facility] Anion Gap 4(L) 5 - 15 mmol/L 04/05/2024 1:52 PM CDT [facility] Glomerular Filtration Rate 49(L) >60 mL/min/1.7 3 m*2 04/05/2024 1:52 PM CDT [facility] Comment:This calculation use s CKD-EPI 2020 equation; it has not been validated in women. Blood BLOOD SPECIMEN / Unknown Venipuncture / Unknown 04/05/2024 1:15 PM CDT 04/05/2024 1:18 PM CDT Conner Dunne PA-C EC CHEMISTRY ORDERABLES Fin al Result [facility] [address] [place] [address] * (ABNORMAL) HEMOGRAM (04/05/2024 1:15 PM CDT) WBC 8.9 4.0 - 11.0 10*3/uL 04/05/2024 1:52 PM CDT [facility] RBC 5.03 3.80 - 5.20 10*6/uL 04/05/2024 1:52 PM CDT [facility] HGB 15.2 12.0 - 16.0 g/dl 04/05/2024 1:52 PM CDT [facility] HCT 46.1 35.0 - 47.0 % 04/05/2024 1:52 PM CDT [facility] MCV 91.7 80 - 98 fL 04/05/2024 1:52 PM CDT [facility] MCH 30.2 27.0 - 34.0 pg 04/05/2024 1:52 PM CDT [facility] MCHC 33.0 32 - 36 g/dl 04/05/2024 1:52 PM CDT [facility] PLT 226 150 - 420 10*3/uL 04/05/2024 1:52 PM CDT [facility] RDW-CV 11.4(L) 11.6 - 14.4 % 04/05/2024 1:52 PM CDT [facility] RDW-SD 39.4 36.5 - 46.3 fL 04/05/2024 1:52 PM CDT [facility] Blood BLOOD SPECIMEN / Unknown Venipuncture / Unknown 04/05/2024 1:15 PM CDT 04/05/2024 1:18 PM CDT Conner Dunne PA-C EC HEMATOLOGY ORDERABLES Fi nal Result Performing Organization Address [facility]/State/[facility] Co de Phone Number [facility] [address] [place] [address] * US ANES REFERENCE (04/05/2024 1:04 PM [...] the system and automatically finalized on 04/05/2024. Roc Sow DO EC OS FILMS IMAGING ORDERABLE S Final Result documented in this encounter Visit Diagnoses Diagnosis S/P total knee arthroplasty, right- Primary S/P total knee arthroplasty, right documented in this encounter Administered Medications Inactive Administered [...] 6 HOURS NEEDED, Starting on Fri04/05/24 at 2012, Until Fri04/06/24 at 1423, Nausea, Vomiting ondansetron (Zofran) injection 4 mg 4 mg, IV Push, EVERY 6 HOURS NEEDED, Starting on Fri04/05/24 at 2012, Until Fri04/06/24 at 1423, Nausea, Vomiting pantoprazole [...] 6 HOURS NEEDED, Starting on Fri04/05/24 at 2012, Until Fri04/06/24 at 1423, Nausea, Vomiting prochlorperazine (Compazine) tablet 5 mg 5 mg, Oral, EVERY 6 HOURS NEEDED, Starting on Fri04/05/24 at 2012, Until Fri04/06/24 at 1423, Nausea, Vomiting rivaroxaban (Xarelto) tablet 10 mg 10 mg, Oral, Daily with Breakfast, First dose on Fri04/06/24 at 0800, Until Discontinued, Indication for Use: VTE Prophylaxis Given 04/06/2024 8:05 AM CDT 10 mg rosuvastatin (Crestor) tablet 10 mg 10 mg, [...] dose on Fri04/05/24 at 2100, Until Discontinued 222 (Given - Provider: Bria Jara, SHAYNE) 0806 (Given - Provider: Magdaleno Quintero RN) amLODIPine (Norvasc) tablet 5 mg 5 mg, Oral, EVERY EVENING, First dose on Fri04/05/24 at 2100, Until Discontinued 2041 (Not Given - Provider: Siri Galarza, SHAYNE - Reason: Provider Order) BUPivacaine 0.25% - EPINEPHrine 1:200,000 PF (Marcaine, Sensorcaine-EPINEPHrine) PF injection 1-30 mL (COMPLETED) 1-30 mL, Infiltration, ONCE, 1 dose, On Fri04/05/24 at 1330 1519 (Given - Provider: Anselmo Bhakta MD) ceFAZolin (ANCEF) 2 g in dextrose 4% IVPB 100 mL (COMPLETED) 2,000 mg, Intravenous, at 200 mL/hr, ONCE, 1 dose, On Fri04/05/24 at 1330, Indication? surgical prophylaxis 1716 (Given - Provider: Adria Hartley APRN, SALESPERSON BOOKS) ceFAZolin (ANCEF) 2 g in dextrose 4% [...] 2226 (Given - Provider: Bria Jara RN) 805 (Given - Provider: Magdaleno Quintero RN) ethyl alcohol nasal 62 % swab (COMPLETED) Nasal, ONCE, 1 dose, On Fri04/05/24 at 1330 1342 (Given - Provider: Naomi Bonilla RN) ethyl alcohol nasal 62 % swab Nasal, 2 (two) times daily, First dose on Fri04/05/24 at 2100, Until Discontinued 2226 (Given - Provider: Bria Jara RN) 806 (Given - Provider: Magdaleno Quintero RN) losartan [...] Until Discontinued, Indication for Use: VTE Prophylaxis 08 (Given - Provid er: Magdaleno Quintero RN) rosuvastatin (Crestor) tablet 10 mg 10 mg, Oral, ONCE DAILY, First dose on Fri04/06/24 at 0800, Until Discontinued 804 (Given - Provid er: Magdaleno Quintero RN) senna-docusate (Senokot-S) 8.6-50 MG per tablet 1 Tablet 1 Tablet, Oral, 2 TIMES DAILY, First dose on Fri04/05/24 at 2100, Until Discontinued 2225 (Given - Provider: Bria Jara RN) 0808 (Given - Provider: Magdaleno Quintero RN) sodium chloride 0.9% IV FLUSH (NS) SYRINGE 5 mL 5 mL, IV Flush, EVERY 8 HOURS, First dose on Fri04/05/24 at 2200, Until Discontinued 2226 (Not Given - Provider: Bria Jara RN - Reason: IV Infusing) 0720 (Not [...] 1825 (Given - Provider: Adria Hartley APRN, JAYDEN) Continuous Medication Order 04/04/2024 04/05/2024 04/06/2024 lactated ringers infusion 10-50 mL/hr, Intravenous, CONTINUOUS, Starting on Fri04/05/24 at 1330, Until Fri04/06/24 at 1423 1351 (New Bag - Provider: Naomi Bonilla RN)1713 (Paused - Provider: Adria Hartley APRN, CRNA - Comment: Switch to gravity)171 (Restarted - Provider: Adria Hartley APRN, CRNA - Comment: given in pre-op)171 (Continued From PreOp-(Anes) - Provider: Adria Hartley APRN, JAYDEN)185 (Anesthesia Volume Adjusted - Provider: Adria Hartley APRN, JAYDEN) 1423 (Due: Stopped - Provider: Epicuser Heather) lactated ringers infusion Intravenous, at 75 mL/hr, [...] 2 HOURS NEEDED, Starting on Fri04/05/24 at 2012, Until Fri04/06/24 at 1423, Moderate Pain (4-6), Severe Pain (7-10) HYDROmorphone (Dilaudid) injection 0.5 mg (CANCELED) 0.5 mg, IV Push, EVERY 10 MIN NEEDED, 8 doses, Starting on Fri04/05/24 at 1859, Until Fri04/05/24 at 1955, Moderate Pain (4-6) 192 (Given - Provider: Chrystal Vasquez, SHAYNE)193 (Given - Provider: Chrystal Vasquez RN) hydrOXYzine [...] Fri04/05/24 at 1955, Other, Prolonged significant shivering 1916 (Given - Provider: Chrystal Vasquez RN) naloxone (Narcan) injection 0.1 mg 0.1 mg, IV Push, EVERY 3 MINUTES NEEDED, Starting on Fri04/05/24 at 2011, Until Fri04/06/24 at 1423, Respiratory Depression, Other, SLAB INSPECTOR depression ondansetron (Zofran ODT) disintegrating tablet 4 [...] Push, EVERY 6 HOURS NEEDED, Starting on 04/05/24 at 2012, Until Fri04/06/24 at 1423, Nausea, Vomiting documented [...] 1 04/05/2024 diphenhydrAMINE (Benadryl) injection 25 mg 1 04/05/2024 ePHEDrine IV syringe 25 mg/5 mL 1 HYDROmorphone (Dilaudid) inj ection 0.25-0.5 mg 1 04/05/2024 HYDROmorphone (Dilaudid) injection 1 mg 1 0 04/05/2024 hydrOXYzine HCl (Atarax) tablet 10 mg 1 03/2024 magnesium hydroxide (Milk of Magnesia) 400 MG/5ML suspension 30 mL 1 04/05/2024 naloxone (Narcan) injection 0.1 mg 1 2023 naloxone (Narcan) injection 0.2 mg 1 [...] prochlorperazine (Compazine) tablet 5 mg 1 04/05/2024 ROPivacaine (Naropin) 150 mg , EPINEPHrine (Adrenalin) 0.3 mg in sodium chloride 0.9% (NS) 19.7 mL solution 1 04/05/2024 sodium chloride 0.9% IV FLUS [...] 04/05/2024 documented in this encounter Care Teams Insurance Adjustor Relationship Specialty Start Date End Date Elsewhere, Pcp PCP - General 03/24/24 documented as of this encounter
--- OUTSIDE RECORDS SUMMARY | 2024-06-01 09:44 | XMS_ITS | Clinical Summary ---
Author Organization [facility] Address [place], [place] [address] Care Team Providers Care Glass Loading Equipment Tender Name Role Phone KiketeChristoph campo MD Primary Care Provider + Allergies Active [...] Diagnosed Date Screen for colon cancer 05/04/2009 Overview (05/04/2009): Colonoscopy 04/2009 normal repeat in 10 years HTN (hypertension) 01/11/2009 Allergic rhinitis, cause unspecified 12/24/2006 Immunizations Name Administration Dates Next Due Td (Age >=7 Years) 03/07/2003 Family History Medical History Relation Name Comments Heart Disease Father suddenly at age 81 of [place] Other Father Sleep apnea, Hypertension Mother Relation [...] Comments Blood Pressure 136/79 09/04/2010 4:44 PM PSYCHIATRIC CLINICAL NURSE SPECIALIST Pulse 63 09/04/2010 4:44 PM PSYCHIATRIC CLINICAL NURSE SPECIALIST Temperature 36.7 ??C (98 ??F) 11/19/2007 9:05 AM CDT Respiratory Rate - - Oxygen Saturation 98% 08/21/2010 10:43 AM PSYCHIATRIC CLINICAL NURSE SPECIALIST room air Inhaled Oxygen Concentration - - Weight 103.4 kg (228 lb) 09/04/2010 4:44 PM PSYCHIATRIC CLINICAL NURSE SPECIALIST Height 176.5 cm (5' 9.5) 01/09/2010 3:09 [...] 1 - PCV) 2019 COVID-19 vaccine series (1 - 2023- season) 2024 Influenza for age 65+ 03/28/2024 Procedures Procedure Name Priority Date/Time Associated Diagnosis Comments LIPID PANEL Routine 08/21/2010 9:47 AM PSYCHIATRIC CLINICAL NURSE SPECIALIST Screening, lipid XR FFDM MAMMO UNI ADDL VIEWS RIGHT (IA) Routine 12/21/2008 1:43 PM CDT Abnormal Mammogram, Unspecified from Last 3 Months or Most Recently Relevant to Health Maintenance Results * (ABNORMAL) LIPID PANEL (08/21/2010 9:47 AM PSYCHIATRIC CLINICAL NURSE SPECIALIST) CHOLESTEROL,TOTAL 216(H) 110 - 199 mg/dL [facility] TRIGLYCERIDES 101 <150 mg/dL [facility] HDL CHOLESTEROL 48 >40 mg/dL [facility] CHOL/HDL RATIO 4.50 <4.51 [facility] LDL CHOLESTEROL 148(H) <131 mg/dL [facility] PATIENT STATUS Fasting [facility] Blood specimen (specimen) BLOOD SPECIMEN / Unknown 08/21/2010 9:47 AM PSYCHIATRIC CLINICAL NURSE SPECIALIST 08/21/2010 9:43 AM PSYCHIATRIC CLINICAL NURSE SPECIALIST Christoph Negron MD CHEMISTRY [facility] [address] [id number] * XR FFDM MAMMO UNI ADDL VIEWS [...] Recently Relevant to Health Maintenance Care Teams Glass Loading Equipment Tender Relationship Specialty Start Date End Date Christoph Negron MD [address] [place] [address] PCP - General 11/07/05
--- OUTSIDE RECORDS SUMMARY | 2024-06-01 09:44 | XMS_ITS | Encounter Summary ---
Author Organization [facility] Address [address] [address] Phone Care Team Providers Care Billposting Supervisor Name Role Phone Elsewhere, Pcp Primary Care Provider Unavailabl e Encounter Details Date Type Department Care Team (Latest Contact Info) Description 04/05/2024 Travel Social History Tobacco Use Types Packs/Day Years Used Date Smoking Tobacco: Never Smokeless Tobacco: Never Alcohol Use Standard Drinks/Week Comments Yes 0 (1 standard drink = 0.6 oz pur e alcohol) 2 drinks monthy [facility] Utilities Answer Date Recorded In the past 12 months has th e electric, gas, oil, or water company threatened to shut off services in your [...] any time in the past 12 m [facility], were you homeless or living in a long-term (including now)? No 04/05/2024 EH IP Custom [...] on filedocumented in this encounter Care Teams Billposting Supervisor Relationship Specialty Start Date End Date Elsewhere, Pcp PCP - General 03/24/24 documented as of this encounter
--- OUTSIDE RECORDS SUMMARY | 2024-06-01 09:44 | XMS_ITS | Encounter Summary ---
Author Organization [facility] Address [address] [address] Phone Care Team Providers Care Top Polisher Name Role Phone Elsewhere, Pcp Primary Care Provider Unavailabl e Reason for Visit * Auth/Cert Specialty Diagnoses / Procedures Referred By Contac t Referred To Contact Diagnoses Osteoarthritis of the right knee M17.11 Procedures TOTAL KNEE REPLACEMENT Right total knee arthroplasty Jameel Roblero MD [address] [id number] Phone: tel: fax: Referral ID Status Reason Start Date Expiration Date Visits Re quested Visits Authorized [id number] 1 1 Encounter Details Date Type Department Care Team ([facility] Contact Info) Description 04/05/2024 5:16 PM CDT Anesthesia Event [facility] OR [address] [place] [phone] Anselmo Bhakta MD [address] [place] [id number] Roc Sow DO [address] [place] [address] Anesthesia Record Procedure Summary Procedure Name Responsible Anesthesiologist Anesthesia Start Time Anesthesia Stop Time Right total knee arthroplasty (Right: Knee) Anselmo Bhakta MD 04/05/24 1716 04/05/24 1858 Events Date Time Event Comment 04/05/2024 1323 1529 AN Equip Check 1552 MANAGER COMPENSATION Ready 1716 An Start The patient was reevaluated immediately prior to initiation of anesthesia. 1716 An Start Data 1717 Start Supplemental O2 1718 Block Placement Started 1721 Anesthesia Ready 1747 An Tourn Inflated 1852 an stop data 1858 An Stop Report given to the receiving RN. No apparent anesthesia complications at this time. Electronically signed by Adria Hartley APRN MANAGER COMPENSATION 1858 Intraop Signature Intraop erative Record electronically signed by Anselmo Bhakta MD Meds Name Total lidocaine (XYLOCAINE) injection 2% 50 mg ondansetron (ZOFRAN) injection 2 mg/mL 4 mg dexamethasone (DECADRON) injection 10 mg /mL 10 mg propofol 20 mL VIAL 10 mg/mL (Diprivan) 50 mg propofol 20 mL VIAL 10 mg/mL (Diprivan) infusion 592 mg tranexamic acid (Cyklokapron ) 1000 mg in sodium chloride 0.7% 100 mL (premix) 1,000 mg tranexamic acid (Cyklokapron ) 1000 mg in sodium chloride 0.7% 100 mL (premix) 1,000 mg ceFAZolin (ANCEF) 2 g in dextrose 4% IVP B 100 mL 2,000 mg BUPivacaine 0.25% - EPINEPHr ine 1:200,000 PF (Marcaine, Sensorcaine-EPINEPHrine) PF injection 1-30 mL 30 mL mepivacaine 2% PF(Carbocaine PF/Polocain e-MPF) preservative free injection 2 mL lactated ringers infusion 1,200 mL * Agents Name O2 * Blood No blood administrations on file. Lines, Drains, and Airways Type Details Placement Removal Wound 04/05/24; 1759; Inci hope; Anterior, Right; Knee 04/05/24 1759 by Mariposa Cuadra RN Peripheral IV 04/05/24; 1351; 20; Left, Posterior; Hand; ChloraPrep; None; N/A - Due to Patient Condition; Calm, Cooperative; No Complications 04/05/24 1351 by Naomi Bonilla RN 04/06/24 0954 by Magdaleno Quintero RN documented in this encounter Social History Tobacco Use Types Packs/Day Years Used Date Smoking Tobacco: Never Smokeless Tobacco: Never Alcohol Use Standard Drinks/Week Comments Yes 0 (1 standard drink = 0.6 oz pur e alcohol) 2 drinks monthy [facility] Utilities Answer Date Recorded In [...] any time in the past 12 m [facility], were you homeless or living in a fdc (including now)? No 04/05/2024 EH IP Custom [...] on file documented as of this encounter OR Notes * Anesthesia Postprocedure Evaluation - Anselmo Bhakta MD - 04/05/2024 7:59 PM CDT Procedure Summary Date: 04/05/24 Room / Location: [facility] OR -[facility] OR Anesthesia Start: 1715 Anesthesia Stop: 1857 Procedure: Right total knee arthroplasty (Right: Knee) Diagnosis: (Osteoarthritis of the right kneeM17.11) Surgeons: Jameel Roblero MD Responsible Provider: Anselmo Bhakta MD Anesthesia Type: regional ASA Status: 2 Anesthesia Type: regional Vitals Value Taken Time BP 162/92 04/05/24 1950 Temp 04/05/241958 Pulse 78 04/05/241951 Resp 14 04/05/241951 SpO2 92 % 04/05/241951 Vitals shown include unfiled device data. Patient Post-op disposition: inpatient floor planned admission Patient participation: patient able to participate Level of consciousness: awake and alert Pain management: adequate Airway patency: patent Cardiovascular status: acceptable Respiratory status: acceptable Hydration status: no apparent hydration abnormalities No PONVDental findings: dentition unchanged No notable events documented. * Anesthesia Procedure Notes - Anselmo Bhakta MD - 04/05/2024 5:46 PM CDT Associated Order(s): Spinal Spinal Patient location during procedure: OR Reason for block: primary anesthetic Performed by: Anselmo Bhakta MD Authorized by: Anselmo Bhakta MD Start time: 04/05/2024 5:18 PM End time: 04/05/2024 5:19 PM Preanesthetic Checklist Completed: patient identified, site marked, surgical consent, pre-op evaluation, timeout performed,IV checked, risks and benefits discussed and monitors and equipment checked Spinal Block Patient position: sitting Prep: ChloraPrep Patient monitoring: continuous pulse ox, conveyor monitor and heart rate Approach: midline Location: L3-4 Needle Needle type: Pencan Needle gauge: 24 G Needle length: 3.5 in Medications Administered mepivacaine 2% PF(Carbocaine PF/Polocaine-MPF) preservative free injection - Intrathecal 2 mL - 04/05/2024 5:18:00 PM Assessment Sensory level: Adequate Events: cerebrospinal fluid Procedure assessment: patient tolerated procedure well with no immediate complications * Anesthesia Procedure Notes - Anselmo Bhakta MD - 04/05/2024 3:22 PM CDT Associated Order(s): Nerve Block Nerve Block Patient location during procedure: pre-op Reason for block: at surgeon's request and post-op pain management Performed by: Anselmo Bhakta MD Authorized by: Anselmo Bhakta MD Preanesthetic Checklist Completed: patient identified, site marked, surgical consent, pre-op evaluation, timeout performed,IV checked, risks and benefits discussed and monitors and equipment checked Peripheral Block Patient position: supine Prep: ChloraPrep Patient monitoring: blood pressure monitoring, conveyor monitor, continuous pulse oximetry and heartrate Block type: iPACK Laterality: right Injection technique: single-shot Needle Needle type: short-bevel Needle gauge: 21 G Needle length: 4 in Needle localization: ultrasound guidance Images available in PACS. Needle tip was noted to be adjacent to the nerve/plexus identified Assessment Injection assessment: negative aspiration for heme, no paresthesia on injection, incremental injection and local visualized surrounding nerve on ultrasound Paresthesia pain: none Heart rate change: no Slow fractionated injection: no Additional Notes Normal anatomy * Anesthesia Procedure Notes - Anselmo Bhakta MD - 04/05/2024 3:22 PM CDT Associated Order(s): Nerve Block Nerve Block Patient location during procedure: holding area Reason for block: at surgeon's request and post-op pain management Performed by: Anselmo Bhakta MD Authorized by: Anselmo Bhakta MD Preanesthetic Checklist Completed: patient identified, site marked, surgical consent, pre-op evaluation, timeout performed,IV checked, risks and benefits discussed and monitors and equipment checked Peripheral Block Patient position: supine Prep: ChloraPrep Patient monitoring: blood pressure monitoring, conveyor monitor, continuous pulse oximetry and heartrate Block type: adductor canal block Laterality: right Injection technique: single-shot Needle Needle type: short-bevel Needle gauge: 21 G Needle length: 4 in Needle localization: ultrasound guidance Images available in PACS. Needle tip was noted to be adjacent to the nerve/plexus identified Assessment Injection assessment: negative aspiration for heme, no paresthesia on injection, incremental injection and local visualized surrounding nerve on ultrasound Paresthesia pain: none Heart rate change: no Slow fractionated injection: no Additional Notes Normal anatomy * Anesthesia Preprocedure Evaluation - Anselmo Bhakta MD - 04/05/2024 1:21 PM CDT Anesthesia Evaluation negative anesthesia history Pulmonary - negative ROS and normal exam Cardiovascular - normal exam Exercise tolerance: > or = 4 METS (+) hypertension, dyslipidemia Neuro/Psych - negative ROS GI/Hepatic/Renal - negative ROS Endo - negative ROS Other BMI Classification: obese (BMI 30-39.9) All allergies reviewed. Physical Exam Airway Mallampati: II TM distance: >3 FB Neck ROM: full Cardiovascular - normal exam Rhythm: regular Rate: normal Dental - normal exam Pulmonary - normal exam Breath sounds clear to auscultation Anesthesia Plan ASA 2 Plan: regional Technique: spinal Lines and monitors: PIV Anesthetic plan and risks discussed and informed consent obtained from: patient. Plan discussed with MANAGER COMPENSATION. Use of blood products discussed with patient who consented to blood products. Post-op pain management: IV non opioid analgesics, IV opioid analgesics and local PONV Plan PONV risk factors: female and non-smoker, planned opioid use Calculated risk score: 3 Prevention/prophylaxis plan: Decadron and Zofran Patient is not DNR; Patient is not DNI; documented in this encounter Plan of Treatment Not on file documented as of this encounter Procedures Procedure Name Priority Date/Time Associated Diagnosis Comments ANESTHESIA BLOCK SPINAL 04/05/2024 5:18 PM CDT IPACK NERVE BLOCK 04/05/2024 3:2 2 PM CDT US GUIDE NEEDLE BX S&I 04/05/2024 3:22 PM CDT US GUIDE NEEDLE BX S&I 04/05/2024 3:22 PM CDT INJECT NERV BLCK, FEMORAL 04/05/2024 3:22 PM CDT documented in this encounter Results * Spinal (04/05/2024 5:18 PM CDT) Narrative Anselmo Bhakta MD - 04/05/2024 5:18 PM CDT Anselmo Bhakta MD ? 04/05/2024 ??5:47 PM Spinal Patient location during procedure: OR Reason for block: primary anesthetic Performed by: Anselmo Bhakta MD Authorized by: Anselmo Bhakta MD ?? Start time: 04/05/2024 5:18 PM End time: 04/05/2024 5:19 PM Preanesthetic Checklist Completed: patient identified, site marked, surgical consent, pre-op evaluation, timeout performed, IV checked, risks and benefits discussed and monitors and equipment checked Spinal Block Patient position: sitting Prep: ChloraPrep Patient monitoring: continuous pulse ox, conveyor monitor and heart rate Approach: midline Location: L3-4 Needle Needle type: Pencan Needle gauge: 24 G Needle length: 3.5 in Medications Administered mepivacaine 2% PF(Carbocaine PF/Polocaine-MPF) preservative free injection - Intrathecal 2 mL - 04/05/2024 5:18:00 PM Assessment Sensory level: Adequate Events: cerebrospinal fluid Procedure assessment: patient tolerated procedure well with no immediate complications us Anselmo Bhakta MD PROCEDURE/MINOR ITZEL ORDERABLES Final Result * US GUIDE NEEDLE BX S&I, US GUIDE NEEDLE BX S&I, IPACK NERVE BLOCK (04/05/2024 3:22 PM CDT) Narrative Anselmo Bhakta MD - 04/05/2024 3:22 PM CDT Anselmo Bhakta MD ? 04/05/2024 ??3:23 PM Nerve Block Patient location during procedure: pre-op Reason for block: at surgeon's request and post-op pain management Performed by: Anselmo Bhakta MD Authorized by: Anselmo Bhakta MD ?? Preanesthetic Checklist Completed: patient identified, site marked, surgical consent, pre-op evaluation, timeout performed, IV checked, risks and benefits discussed and monitors and equipment checked Peripheral Block Patient position: supine Prep: ChloraPrep Patient monitoring: blood pressure monitoring, conveyor monitor, continuous pulse oximetry and heart rate Block type: iPACK Laterality: right Injection technique: single-shot Needle Needle type: short-bevel Needle gauge: 21 G Needle length: 4 in Needle localization: ultrasound guidance Images available in PACS. Needle tip was noted to be adjacent to the nerve/plexus identified Assessment Injection assessment: negative aspiration for heme, no paresthesia on injection, incremental injection and local visualized surrounding nerve on ultrasound Paresthesia pain: none Heart rate change: no Slow fractionated injection: no Additional Notes Normal anatomy Anselmo Bhakta MD PROCEDURE/MINOR ITZEL ORDERABLES Final Result * INJECT NERV BLCK, FEMORAL (04/05/2024 3:22 PM CDT) Narrative Anselmo Bhakta MD - 04/05/2024 3:22 PM CDT Anselmo Bhakta MD ? 04/05/2024 ??3:22 PM Nerve Block Patient location during procedure: holding area Reason for block: at surgeon's request and post-op pain management Performed by: Anselmo Bhakta MD Authorized by: Anselmo Bhakta MD ?? Preanesthetic Checklist Completed: patient identified, site marked, surgical consent, pre-op evaluation, timeout performed, IV checked, risks and benefits discussed and monitors and equipment checked Peripheral Block Patient position: supine Prep: ChloraPrep Patient monitoring: blood pressure monitoring, conveyor monitor, continuous pulse oximetry and heart rate Block type: adductor canal block Laterality: right Injection technique: single-shot Needle Needle type: short-bevel Needle gauge: 21 G Needle length: 4 in Needle localization: ultrasound guidance Images available in PACS. Needle tip was noted to be adjacent to the nerve/plexus identified Assessment Injection assessment: negative aspiration for heme, no paresthesia on injection, incremental injection and local visualized surrounding nerve on ultrasound Paresthesia pain: none Heart rate change: no Slow fractionated injection: no Additional Notes Normal anatomy Anselmo Bhakta MD PROCEDURE/MINOR ITZEL ORDERABLES Final Result documented in this encounter Visit Diagnoses Not on filedocumented in this encounter Administered Medications Inactive Administered Medications Medication Order MAR Action Action Date Dose Rate Site BUPivacaine 0.25% - EPINEPHrine 1:200,000 PF (Marcaine, Sensorcaine-EPINEPHrine ) PF injection 1-30 mL 1-30 mL, Infiltration, ONCE, 1 dose, On 04/05/24 at 1330 Given 04/05/2024 3:19 PM CDT 30 mL ceFAZolin (ANCEF) 2 g in dextrose 4% IVPB 100 mL 2,000 mg, Intravenous, at 200 mL/hr, ONCE, 1 dose, On Fri04/05/24 at 1330, Indication? surgical prophylaxis Given 04/05/2024 5:16 PM CDT 2,000 mg dexAMETHasone (Decadron) injection IV Push, NEEDED, Starting on Fri04/05/24 at 1728, Until Fri04/05/24 at 1903 Given 04/05/2024 5:28 PM CDT 10 mg lactated ringers infusion 10-50 mL/hr, Intravenous, CONTINUOUS, Starting on Fri04/05/24 at 1330, Until Fri04/06/24 at 1423 Continued From PreOp-(Anes) 04/05/2024 5:16 PM CDT 10 mL/hr Restarted 04/05/2024 5:14 PM CDT New Bag 04/05/2024 1:51 PM CDT 10 mL/hr 10 mL/hr lidocaine (Xylocaine) 2 % injection IV Push, NEEDED, Starting on Fri04/05/24 at 1717, Until Fri04/05/24 at 1903 Given 04/05/2024 5:17 PM CDT 50 mg mepivacaine 2% PF (Carbocaine/Polocaine) injection Intrathecal, Starting on Fri04/05/24 at 1718, Until Fri04/05/24 at 1718 Given 04/05/2024 5:18 PM CDT 2 mL ondansetron (Zofran) injection IV Push, NEEDED, Starting on Fri04/05/24 at 1717, Until Fri04/05/24 at 1903 Given 04/05/2024 5:17 PM CDT 4 mg propofol (Diprivan) 200 MG/20ML injection Intravenous, CONTINUOUS INTRA-OP, Starting on Fri04/05/24 at 1719, Until Fri04/05/24 at 1903 Rate/Dose Change 04/05/2024 6:33 PM CDT 40 mcg/kg/min 24 mL/hr Rate/Dose Change 04/05/2024 5:41 PM CDT 70 mcg/kg/min 42 m L/hr New Bag 04/05/2024 5:19 PM CDT 80 mcg/kg/min 48 mL/hr propofol (Diprivan) 200 MG/20ML injection IV Push, NEEDED, Starting on Fri04/05/24 at 1718, Until Fri04/05/24 at 1903 Given 04/05/2024 5:23 PM CDT 30 mg Given 04/05/2024 5:18 PM CDT 20 mg tranexamic acid (Cyklokapron) 1000 mg in sodium chloride 0.7% 100 mL (premix) 1,000 mg, Intravenous, at 200 mL/hr, ONCE, 1 dose, On Fri04/05/24 at 1330 Given 04/05/2024 5:28 PM CDT 1,000 mg tranexamic acid (Cyklokapron) 1000 mg in sodium chloride 0.7% 100 mL (premix) 1,000 mg, Intravenous, at 200 mL/hr, ONCE, 1 dose, On Fri04/05/24 at 1330 Given 04/05/2024 6:25 PM CDT 1,000 mg documented in this encounter Care Teams Top Polisher Relationship Specialty Start Date End Date Elsewhere, Pcp PCP - General 03/24/24 documented as of this encounter
--- OUTSIDE RECORDS SUMMARY | 2024-06-01 09:44 | XMS_ITS | Clinical Summary ---
Author Organization [facility] Address [address] [address] Phone Care Team Providers Care Billing Services Manager Name Role Phone Elsewhere, Pcp Primary Care Provider Unavailabl e Allergies Active Allergy Reactions Criticality Noted Date Comments Amoxicillin-Pot Clavulanate RASH Medium 11/19/19 08 (Adult onset; reaction: rash; denies swelling/difficulty breathing/anaphylax is) Codeine Nausea Only Low 12/24/2006 Hydrochlorothiazide W-Triamterene Other Low 12/24/2006 Loratadine Unknown Medium 11/22/2008 Simvastatin Hypertension Medium 04/01/2024 Medications amLODIPine (Norvasc) 10 MG tablet Take 5 mg by mouth at bedtime. Active losartan (Cozaar) 100 MG tablet Take 100 mg by mouth one time a day. Active rosuvastatin (Crestor) 10 MG tablet Take 10 mg by mouth one time a day. Active Calcium Citrate-Vitami n D (CALCIUM CITRATE + D3 OR) Take 1 Tablet by mouth one time a day. Active celecoxib (CeleBREX) 200 MG capsule Take 1 Capsule by mouth one time a day. 13 Capsule 4 Active hydrOXYzine HCl (Atarax) 25 MG tabletIndicati ons:S/P total knee arthroplasty, right Take 1 Tablet by mouth four times a day as needed for Itching, Anxiety or Other (pain). 60 Tablet 4 Active senna-docusate (Senna S) 8.6-50 MG oral tablet Take 1 Tablet by mouth one time a day. 30 Tablet 1 4 Active acetaminophen (Tylenol) 500 MG tablet Take 2 Tablets by mouth three times a day. Limit acetaminophen to 4000 mg per day from all sources. 30 Tablet 4 Active rivaroxaban (Xarelto) 10 MG tablet Take 1 Tablet by mouth one time a day with breakfast. Take with food. 41 Tablet 4 Active oxyCODONE (Roxicodone) 5 MG immediate release tablet Take 1-2 Tablets by mouth every four hours as needed for Pain for up to 30 days. 30 Tablet 4 024 Active Problems Problem Noted Date Diagnosed Date S/P total knee arthroplasty, right 03/26/2024 Encounters Date Type Department Care Team Description 04/05/2024 5:16 PM CDT Anesthesia Event [facility] SUR[facility]ERY OR [address] [place] [phone] Anselmo Bhakta MD Wolter, Jeremy G, 04/05/2024 3:30 PM CDT - 04/05/2024 6:00 PM CDT Surgery [facility] OR [address] [place] [phone] Jameel Roblero MD Right total knee arthroplasty 04/05/2024 1:05 PM CDT Ancillary Procedure [facility] RADIOLOGY OS FILMS [address] [place] [phone] 04/05/2024 12:49 PM CDT - 04/06/2024 10:23 AM CDT Hospital Encounter [facility] INPATIENT [address] [place] [phone] Jameel Roblero MD S/P total knee arthroplasty, right (Primary Dx) Discharge Disposition: Home and/or Self Care 04/05/2024 Travel 03/31/2024 Travel from Last 3 Months Surgical History Surgery Date Site/Laterality Comments TONSILLECTOMY AND ADENOIDECTOMY LAPAROSCOPY TOOTH EXTRACTION third molar TOTAL KNEE ARTHROPLASTY 04/05/2024 Knee/Right Procedure: Right total knee arthroplasty; Surgeon: Jameel Roblero MD; Location: [facility] OR Medical devices from this surgery are in the Medical Devices section. Social History Tobacco Use Types Packs/Day Years Used Date Smoking Tobacco: Never Smokeless Tobacco: Never Tobacco Cessation:Counseling Given: Not Answered Alcohol Use Standard Drinks/Week Comments Yes 0 (1 standard drink = 0.6 oz pur e alcohol) 2 drinks monthy [facility] Utilities Answer Date Recorded In the [...] any time in the past 12 m [facility], were you homeless or living in a custodial (including now)? No 04/05/2024 EH IP Custom [...] AM CDT Sexual Orientation Not on file Obstetrics History [...] Mass Index 35.72 03/25/2024 10:58 AM CDT Plan of Treatment Health Maintenance Due Date Last Done Comments CT Colonography 1954 Cologuard 1954 Colonoscopy 1954 Colorectal Cancer Screening 1954 FIT/FOBT 1954 MAMMO,SCREEN 1954 Sigmoidoscopy 1954 PERTUSSIS (Standing Order) 1973 TETANUS (Standing Order) 1973 Shingrix (Zoster recombinant ) vaccine (Standing Order) (1 of 2) 2004 RSV Vaccination (60+ yrs) (Abrysvo/Arexvy) (1 - Risk 60-74 years 1-dose series) 2014 DXA,FEMALES AGE 65 OR GREATER 2019 Pneumococcal Vaccine: 65+ yr s (Standing Order) (1 of 1 - PCV) 2019 COVID-19 Vaccine (2023-2 5 season) 2024 Influenza Vaccine Seasonal (Standing Order) (#1) 2024 HPV Vaccine (Standing Order) Aged Out No longer eligible based on patient's age to complete this topic Hepatitis B Vaccine (Standin g Order) Aged Out No longer eligible b ased on patient's age to complete this topic Medical Devices Implanted Type Area Environmental Monitoring Technician Device Identifier Shelf Expiration Date Model / Serial / Lot Cement Bone Mv Simplex P Speedset - [id number] Implanted:Qty: 1 on 04/05/2024 by Jameel Roblero MD at [facility] Right: Knee JH 10/25/2025 [id number] / NA / [id number] Baseplate Tibial Triathlon Sz 4 - [id number] Implanted:Qty: 1 on 04/05/2024 by Jameel Roblero MD at [facility] Right: Knee JH [id number] 02/07/2029 [id number] / NA / [id number] [id number] Triathlon Tibial Bearing Insert Ps Implanted:Qty: 1 on 04/05/2024 by Jameel Roblero MD at [facility] Right: Knee JH 02/06/2028 [id number] / NA / [id number] Femur Triathlon Ps Sz 5 Right - [id number] Implanted:Qty: 1 on 04/05/2024 by Jameel Roblero MD at [facility] Right: Knee JH [id number] 11/09/2028 [id number] / NA / [id number] Procedures Procedure Name Priority Date/Time Associated Diagnosis Comments HEMOGLOBIN Routine 04/06/2024 5:47 AM CDT ANESTHESIA BLOCK SPINAL 04/05/2024 5:18 PM CDT TOTAL KNEE REPLACEMENT 04/05/2024 5:16 PM CDT Osteoarthritis of the right knee M17.11 Case Notes [place] 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 anesthesia: general with pop block Special Needs seasonal allergies allergies: codeine derivatives(vomiting) IPACK NERVE BLOCK 04/05/2024 3:2 2 PM CDT US GUIDE NEEDLE BX S&I 04/05/2024 3:22 PM CDT US GUIDE NEEDLE BX S&I 04/05/2024 3:22 PM CDT INJECT NERV BLCK, FEMORAL 04/05/2024 3:22 PM CDT BASIC METABOLIC PANEL Routine 04/05/2024 1:15 PM CDT HEMOGRAM Routine 04/05/2024 1:15 PM CDT US ANES REFERENCE STAT 04/05/2024 1:0 4 PM CDT from Last 3 Months Results * HEMOGLOBIN (04/06/2024 5:47 AM CDT) HGB 13.3 12.0 - 16.0 g/dl 04/06/2024 6:27 AM CDT [facility] Blood BLOOD SPECIMEN / Unknown Venipuncture / Unknown 04/06/2024 5:47 AM CDT 04/06/2024 6:10 AM CDT us Bonita Romero PA-C EC HEMATOLOGY ORDERABLES Final Result [facility] [address] [place] [address] * Spinal (04/05/2024 5:18 PM CDT) Narrative [...] Prep: ChloraPrep Patient monitoring: continuous pulse ox, satellite project site monitor and heart rate Approach: midline Location: [...] Prep: ChloraPrep Patient monitoring: blood pressure monitoring, satellite project site monitor, continuous pulse oximetry and heart rate [...] Prep: ChloraPrep Patient monitoring: blood pressure monitoring, satellite project site monitor, continuous pulse oximetry and heart rate [...] MD PROCEDURE/MINOR ITZEL ORDERABLES Final Result * (ABNORMAL) BASIC METABOLIC PANEL (04/05/2024 1:15 PM CDT) Pathologist [facility] Sodium 138 135 - 144 mmol/L 04/05/2024 1:52 PM T [facility] Potassium 4.7 3.4 - 5.1 mmol/L 04/05/2024 1:52 PM [facility] Chloride 103 98 - 107 mmol/L 04/05/2024 1:52 PM T [facility] Carbon Dioxide 31(H) 22 - 30 mmol/L 04/05/2024 1:52 PM [facility] Calcium 9.4 8.6 - 10.3 mg/dL 04/05/2024 1:52 PM [facility] Glucose 105(H) 74 - 100 mg/dL 04/05/2024 1:52 PM [facility] Blood Urea nitrogen 28(H) 7 - 17 mg/dL 04/05/2024 1:52 PM [facility] Creatinine 1.20(H) 0.52 - 1.04 mg/dL 04/05/2024 1:52 PM [facility] Anion Gap 4(L) 5 - 15 mmol/L 04/05/2024 1:52 PM [facility] Glomerular Filtration Rate 49(L) >60 mL/min/1.7 3 m*2 04/05/2024 1:52 PM [facility] Comment:This calculation use s CKD-EPI 2020 equation; it has not been validated in women. Blood BLOOD SPECIMEN / Unknown Venipuncture / Unknown 04/05/2024 1:15 PM CDT 04/05/2024 1:18 PM CDT Kjerstin L [place] PA-C EC CHEMISTRY ORDERABLES Fin al Result Performing Organization Address [facility] Co de Phone Number [facility] [address] [place] [address] * (ABNORMAL) HEMOGRAM (04/05/2024 1:15 PM CDT) WBC 8.9 4.0 - 11.0 10*3/uL 04/05/2024 1:52 PM CDT [facility] RBC 5.03 3.80 - 5.20 10*6/uL 04/05/2024 1:52 PM CDT [facility] HGB 15.2 12.0 - 16.0 g/dl 04/05/2024 1:52 PM CDT [facility] HCT 46.1 35.0 - 47.0 % 04/05/2024 1:52 PM CDT [facility] MCV 91.7 80 - 98 fL 04/05/2024 1:52 PM CDT [facility] MCH 30.2 27.0 - 34.0 pg 04/05/2024 1:52 PM CDT [facility] MCHC 33.0 32 - 36 g/dl 04/05/2024 1:52 PM CDT [facility] PLT 226 150 - 420 10*3/uL 04/05/2024 1:52 PM CDT [facility] RDW-CV 11.4(L) 11.6 - 14.4 % 04/05/2024 1:52 PM CDT [facility] RDW-SD 39.4 36.5 - 46.3 fL 04/05/2024 1:52 PM CDT [facility] Blood BLOOD SPECIMEN / Unknown Venipuncture / Unknown 04/05/2024 1:15 PM CDT 04/05/2024 1:18 PM CDT Conner Dunne PA-C EC HEMATOLOGY ORDERABLES Fi nal Result Performing Organization Address [facility]/ZIP Co de Phone Number [facility] [address] [place] [address] * US ANES REFERENCE (04/05/2024 1:04 PM [...] OS FILMS IMAGING ORDERABLE S Final Result from Last 3 Months Insurance [employer] MEDICARE ADVANTAGE [facility] Commercial Address: [facility] [address] [place] [address] Advance Directives For more information, please contact: [phone] * Full Code (Latest Code Status on File) Date Activated Date Inactivated Comments 04/05/2024 1:06 PM 04/06/2024 2:28 PM Care Teams Billing Services Manager Relationship Specialty Start Date End Date Elsewhere, Pcp PCP - General 03/24/24
--- OUTSIDE RECORDS SUMMARY | 2024-06-01 09:44 | XMS_ITS | Encounter Summary ---
Author Organization [facility] [employer] [facility] Address [address] [address] Phone Care Team Providers Care Biometrics Consultant Name Role Phone Elsewhere, Pcp Primary Care Provider Unavailabl e Encounter Details Date Type Department Care Team (Late st Contact Info) Description 04/05/2024 1:05 PM CDT Ancillary Procedure [facility] RADI[facility] OS FILMS [address] [place] [address] Social History Tobacco Use Types Packs/Day Years Used Date Smoking Tobacco: Never Smokeless Tobacco: Never Alcohol Use Standard Drinks/Week Comments Yes 0 (1 standard drink = 0.6 oz pur e alcohol) 2 drinks monthy [facility] Utilities Answer Date Recorded In the past 12 months has th e electric, gas, oil, or water [email or web address] threatened to shut off services in your [...] any time in the past 12 m [facility], were you homeless or living in a retirement (including now)? No 04/05/2024 EH IP Custom [...] Procedure Name Priority Date/Time Associated Diagnosis Comments US ANES REFERENCE STAT 04/05/2024 1:0 4 PM CDT documented in this encounter Results * US ANES REFERENCE (04/05/2024 1:04 PM [...] on filedocumented in this encounter Care Teams Biometrics Consultant Relationship Specialty Start Date End Date Elsewhere, Pcp PCP - General 03/24/24 documented as of this encounter
--- NOTE | 2024-06-01 10:15 | CRLHL7_ITS ---
For Patients: As a result of the Century Cures Act, medical imaging exams and procedure reports are released immediately into your electronic medical record. You may view this report before your referring provider. If you have questions, please contact your health care provider. BILATERAL SCREENING MAMMOGRAM WITH COMPUTER-AIDED DETECTION AND TOMOSYNTHESIS TECHNIQUE: CC and MLO views were obtained. These mammographic images have been obtained using full-field digital technique. These mammographic images were interpreted with the benefit of computer-aided detection. Breast Tomosynthesis was used in this interpretation. COMPARISON FILM: 05/29/23, 07/26/21, 05/31/20. FINDINGS: There are scattered areas of fibroglandular density. IMPRESSION: There is no radiographic evidence for malignancy. ASSESSMENT: BI-RADS Category 1: Negative RECOMMENDATION: Routine screening mammogram in 1 year. A lay language report of this examination will be provided to the patient. Harrison Stock M.D. Diagnostic Radiologist [email or web address] SP/Dictated by: Harrison Stock MD @ 06/07/2024 10:15:00 AM (Electronically Signed)
== END 2024-06-01 09:42 | disposition home or self-care (01) ==
LOC: MAMMO 09:43
PROVIDERS: PCP Physician Assistant Medical; Visit Provider Physician Assistant Medical
DX: Z12.31 Encounter for screening mammogram for malignant neoplasm of breast (principal)
CPT/HCPCS: 77063; 77067

== ENCOUNTER 2025-01-19 12:43 | Outpatient (CLI) | payer MEDICARE, SELFPAY ==
--- OUTSIDE RECORDS SUMMARY | 2024-12-21 09:00 | XMS_ITS | Encounter Summary ---
Author Organization [facility] Address [address] [place] [phone] Care Team Providers Care Occ Therapy Asst Name Role Phone Iván Dela Cruz Primary Care Provider [phone] Reason for Referral * (Routine) - Closed Specialty Diagnoses / Procedures Referred By Norman t Referred To Contact Diagnoses Numbness Procedures MRI SPINE CERVICAL W/O CON Mark Dewitt MD [address] [place] [address] [place] [phone] Phone: tel: fax: Referral ID Status Reason Start Date Expiration Date Visits Re quested Visits Authorized [id number] Closed 12/22/2024 06/19/2025 1 1 Reason for Visit * Reason Comments Numbness Encounter Details Date Type Department Care Team (Late st Contact Info) Description 12/21/2024 9:00 AM CDT Office Visit [facility] [address] [place] [phone] Mark Dewitt MD [address] [place] [address] [place] [address] [phone] Numbness (Primary Dx) Social History Tobacco Use Types Packs/Day Years Used Date Smoking Tobacco: Never Smokeless Tobacco: Never Tobacco Cessation:Counseling Given: Not Answered Alcohol Use Standard Drinks/Week Comments Yes 0 (1 standard drink = 0.6 oz pur e alcohol) 2 Comments Unknown Sex and Gender Information Value Date Recorded Sex Assigned at Not on file Legal Sex Female 11:30 AM CDT Gender Identity Not on file Sexual Orientation Not on file documented as of this encounter Progress Notes * Mark Dewitt MD - 12/21/2024 9:00 AM CDT Chief Complaints: No chief complaint on file. History of Present Illness: 69 year old female presents with tingling in her face. She is accompanied by her She explains that she is having a sensation, like falling asleep. It starts in the base of the neck on the right side and radiates up the occipital scalp on the right side. She denies dizziness with this (she has a history of vertigo in the past but this was successfully addressed). But if this happens while standing, she needs to hang on ;to something. These symptoms last 10-20seconds and then she feels back to normal. She denies any pain. This can happen about 10 times a day. There is no pattern to this, resting or with activity, any time of day. She thinks that the frequency has been increasing. No alterations in level of alertness. They explain that last year, a lump was found on the base of her tongue. She had a biopsy of this last summer and fortunately was not cancer. This was prior to the onset of these symptoms. These symptoms began in July with no inciting events. No weakness or numbness, she is quite physically active No other recent illnesses - no fevers, weight loss, vision changes Ever since a CT scan showed sinus disease, she will go to her doctor periodically for treatment of a presumed sinus infection Past Medical History/Past Surgical History: Past Medical History: Diagnosis Date Essential hypertension, benign Past Surgical History: Procedure Laterality Date HX KNEE ARTHROSCOPY Allergies Allergen Reactions Amoxicillin-Pot Clavulanate Rash (Adult onset; reaction: rash; denies swelling/difficulty breathing/anaphylaxis) Loratadine Swelling, lips/tongue and Unknown Simvastatin Other Reaction(s): Hypertension Codeine Nausea Triamterene-Hydrochlorothiazid Other Current Outpatient Medications Medication Sig Dispense Refill amLODIPine (NORVASC) 5 mg oral tablet 5 MG ORALLY EVERY DAY AT BEDTIME Amoxicillin 500 mg oral Tab TAKE 4 TABLETS BY MOUTH 1 HOUR BEFORE DENTAL APPOINTMENT Losartan (COZAAR) 100 mg oral tablet TAKE 1 TABLET 100 MG ORALLY EVERY DAY rosuvastatin (CRESTOR) 10 mg oral tablet Take 1 tablet (10 mg) by mouth once daily. No current facility-administered medications for this visit. Social History: Social History Socioeconomic History Marital status: Spouse name: Not on file Number of children: Not on file Years of education: Not on file Highest education level: Not on file Occupational History Not on file Tobacco Use Smoking status: Never Smokeless tobacco: Never Substance and Sexual Activity Alcohol use: Yes Comment: 2 Drug use: Never Sexual activity: Not on file Other Topics Concern Not on file Social History Narrative Not on file Social Drivers of Health Financial Resource Strain: Not on file Food Insecurity: No Food Insecurity (04/05/2024) Received from [facility] Hunger Vital Sign Worried About Running Out of Food in the Last Year: Never true Ran Out of Food in the Last Year: Never true Transportation Needs: No Transportation Needs (04/05/2024) Received from [facility] PRAPARE - Transportation Lack of Transportation (Medical): No Lack of Transportation (Non-Medical): No Physical Activity: Not on file Stress: Not on file Social Connections: Not on file Intimate Partner Violence: Not At Risk (04/05/2024) Received from [facility] IP Custom IPV Do you feel UNSAFE in any of your personal relationships with your family members or any other acquaintances?: No Housing Stability: Low Risk (04/05/2024) Received from [facility] Housing Stability Vital Sign Unable to Pay for Housing in the Last Year: No Number of Times Moved in the Last Year: 0 Homeless in the Last Year: No Family History: No family history on file. Imaging, Tests, Records Reviewed BMP (03/2024) - eGFR 49 CBC - near normal CT Head without Contrast (01/2024) - right maxillary sinus disease Physical Examination: NEUROLOGICAL: MENTAL STATUS: Alert and oriented. Thought process and content unremarkable. Follows commands appropriately. Speech fluent. CN: II: Visual jhaveri intact. PERRLA. III, IV, : EOMI. Normal saccades. V: Symmetric facial sensation to light touch. VII: Face symmetric. VIII: Hearing symmetric. No nystagmus. IX, X: Symmetric palatal rise. XI: Symmetric shoulder shrug. XII: Tongue midline with symmetric movements. MOTOR: RIGHT UE: LEFT UE Deltoid 5/5 5/5 Biceps 5/5 5/5 Triceps 5/5 5/5 Finger abd 5/5 5/5 RIGHT LE: LEFT LE: HF 5/5 5/5 KE 5/5 5/5 PF 5/5 5/5 DF 5/5 5/5 REFLEXES: RIGHT: LEFT: Reflexes are very difficult to elicit in the upper extremities. Technical factors such as difficulty relaxing her limbs may be playing a significant role in this. Triceps 2/4 2/4 Patellar 2/4 2/4 Achilles /07/31 SENSATION: Light intact and symmetric. Pin sensation throughout neck and scalp and arms intact CEREBELLAR: Normal F-N-F. Normal H-S. No dysmetria. No nystagmus. GAIT: Stable primary gait. Impressions: 69 year old female presents with brief episodes of sensory disturbance. This began in July and involves a sensation radiating up the right side of the neck into the right occipital scalp. There are no relevant exam findings and this is not felt to be painful. I am not sure how to account for this. I suppose this radiating quality and distribution could suggest some issue with an upper cervical radiculopathy (C3?). Though no clear fixed sensory deficit. Will order an MRI of the c-spine. She later mentions that the right side of her neck has been sore. Though again, the sensory disturbance itself is not painful. This would be a long-shot but if the MRI is unrevealing, I suppose some vascular imaging of the cervical vessels would also be a consideration. I am not entirely sure why she can feel momentarily unsteady when this happens. No change in level of consciousness or responsiveness. This localization from the neck to the occipital is more in a radicular pattern than anything specific to the brain, I would think something like a focal seizure would be very unlikely to explain this. I would think such a sensation would be distracting enough to account for this feature. I told her that I am not so sure that there is going to be a particular neuropathology to explain this symptom. But there are some avenues to check on to be more sure about this. I am the single focal point of care for a condition that requires longitudinal relationship and personalized care for condition(s) specified within this medical record. I spent 50 minutes on the date of encounter with the patient and before and after the visit on activities detailed in the above note which may include reviewing the EMR, documenting clinical information, and communicating with other health hospice home care coordinator. Mark Dewitt MD [facility] 2024: Documentation of current mediations reviewed every visit 2. Does patient use tobacco? No 3. Patient has had no falls in calendar year 4. Does patient have Dementia? No documented in this encounter Plan of Treatment Not on file documented as of this encounter Results * MRI SPINE CERVICAL W/O CON (01/04/2025 10:35 AM CDT) Anatomical Region Laterality Modality Spine Magnetic Resonan ce 01/04/2025 12:3 7 PM CDT Impressions 01/04/2025 12:42 PM CDT Cervical disc and facet degeneration with degenerative spondylolisthesis. 1. Mild spinal stenosis and slight narrowing of the left neural foramen at C2-3. 2. Mild spinal stenosis with mild right and severe left neural foraminal narrowing at C3-4. 3. Right neural foramen at C4-5 is moderately stenotic medially. 4. Mild spinal stenosis and narrowing of the right neural foramen laterally at C5- 6. 5. Mild spinal stenosis C6-7, no foraminal compromise. 6. Normal cervical spinal cord. Report signed by: Harrison Bobby MD Narrative 01/04/2025 12:42 PM CDT EXAM: MRI CERVICAL SPINE WITHOUT CONTRAST, 01/04/2025 CLINICAL DATA: Numbness involving right side of neck and occipital scalp. COMPARISON: None. TECHNIQUE: Noncontrast sagittal T1, T2, STIR; axial FLASH T2. FINDINGS: Kyphosis of the spine centered at C7-T1. 2 mm or less degenerative anterolisthesis at C4-5 and C5-6. No fracture or worrisome bone lesion. Schmorl's nodes inferiorly at C2 and C7. Degenerative-related marrow reaction (Modic type I) along vertebral endplates adjacent to parts of the disc space at C7-T1. Normal cervical/upper thoracic spinal cord. Findings at specific interspaces: C2-3: Partial interspace collapse with mild diffuse disc bulge and broad-based central superimposed protrusion. Ventral thecal sac is indented, the cord is not deformed. Mildly hypertrophic facets. Slight narrowing of the left neural foramen. C3-4: Mild diffuse disc bulge with uncinate and left greater than right facet hypertrophy. Ventral thecal sac is flattened, the cord is not deformed. There is mild right and severe left neural foraminal narrowing. C4-5: Mild diffuse disc bulge with slight uncinate spurring and left greater than right facet hypertrophy. Minimal flattening of the ventral thecal sac, no cord deformity. Right neural foramen is moderately stenotic medially. C5-6: Mild diffuse disc bulge with marginal osteophyte. Slightly hypertrophic facets. Minimal flattening of the ventral thecal sac, no cord deformity. Right neural foramen is mildly narrowed laterally. C6-7: Advanced interspace collapse with diffuse disc osteophyte complex formation and uncinate hypertrophy on both sides. Thecal sac is flattened, the cord is not deformed. Adequate neural foramina. C7-T1: Mild diffuse disc bulge with anterior osteophyte. Thecal sac is flattened, the cord is not deformed. Adequate neural foramina. No paraspinal soft tissue abnormality. Procedure Note Harrison Bobby MD - 01/04/2025 EXAM: MRI CERVICAL SPINE WITHOUT CONTRAST, 01/04/2025 CLINICAL DATA: Numbness involving right side of neck and occipitalscalp. COMPARISON: None. TECHNIQUE: Noncontrast sagittal T1, T2, STIR; axial FLASH T2. FINDINGS: Kyphosis of the spine centered at C7-T1. 2 mm or less degenerativeanterolisthesis at C4-5 and C5-6. No fracture or worrisome bone lesion. Schmorl's nodes inferiorly at C2 andC7. Degenerative-related marrow reaction (Modic type I) along vertebralendplates adjacent to parts of the disc space at C7-T1. Normal cervical/upper thoracic spinal cord. Findings at specific interspaces: C2-3: Partial interspace collapse with mild diffuse disc bulge andbroad-based central superimposed protrusion. Ventral thecal sac isindented, the cord is not deformed. Mildly hypertrophic facets. Slightnarrowing of the left neural foramen. C3-4: Mild diffuse disc bulge with uncinate and left greater than rightfacet hypertrophy. Ventral thecal sac is flattened, the cord is notdeformed. There is mild right and severe left neural foraminalnarrowing. C4-5: Mild diffuse disc bulge with slight uncinate spurring and leftgreater than right facet hypertrophy. Minimal flattening of the ventralthecal sac, no cord deformity. Right neural foramen is moderately stenoticmedially. C5-6: Mild diffuse disc bulge with marginal osteophyte. Slightlyhypertrophic facets. Minimal flattening of the ventral thecal sac, no corddeformity. Right neural foramen is mildly narrowed laterally. C6-7: Advanced interspace collapse with diffuse disc osteophyte complexformation and uncinate hypertrophy on both sides. Thecal sac is flattened,the cord is not deformed. Adequate neural foramina. C7-T1: Mild diffuse disc bulge with anterior osteophyte. Thecal sac isflattened, the cord is not deformed. Adequate neural foramina. No paraspinal soft tissue abnormality. IMPRESSION Cervical disc and facet degeneration with degenerativespondylolisthesis. 1. Mild spinal stenosis and slight narrowing of the left neural foramenat C2-3. 2. Mild spinal stenosis with mild right and severe left neural foraminalnarrowing at C3-4. 3. Right neural foramen at C4-5 is moderately stenotic medially. 4. Mild spinal stenosis and narrowing of the right neural foramenlaterally at C5-6. 5. Mild spinal stenosis C6-7, no foraminal compromise. 6. Normal cervical spinal cord. Report signed by: Harrison Bobby MD Mark Dewitt MD MRI ORDERABLE Final Res ult documented in this encounter Visit Diagnoses Diagnosis Numbness- Primary Disturbance of skin sensation Numbness Disturbance of skin sensation documented in this encounter Care Teams Occ Therapy Asst Relationship Specialty Start Date End Date Iván Dela Cruz PA [address] [place] [address] PCP - General 12/01/24 documented as of this encounter
--- OUTSIDE RECORDS SUMMARY | 2025-01-04 08:30 | XMS_ITS | Encounter Summary ---
Author Organization [facility] Address [address] [place] [address] Care Team Providers Care Casino Cage Supervisor Name Role Phone Iván Dela Cruz Primary Care Provider [phone] Reason for Visit * (Routine) - Closed Specialty Diagnoses / Procedures Referred By Contac t Referred To Contact Diagnoses Numbness Procedures MRI SPINE CERVICAL W/O CON Mark Dewitt MD [address] [place] [address] [place] [address] Phone: tel: fax: Referral ID Status Reason Start Date Expiration Date Visits Re quested Visits Authorized [id number] Closed 12/22/2024 06/19/2025 1 1 Encounter Details Date Type Department Care Team (Late st Contact Info) Description 01/04/2025 8:30 AM CDT Ancillary Procedure [facility] [address] [place] [address] Numbness Social History Tobacco Use Types Packs/Day Years [...] Procedure Name Priority Date/Time Associated Diagnosis Comments MRI SPINE CERVICAL W/O CON Routine 01/04/2025 10:35 AM CDT Numbness documented in this encounter Results * MRI SPINE CERVICAL [...] Normal cervical spinal cord. Report signed by: MD Marty Mcfadden 01/04/2025 12:42 PM CDT EXAM: MRI CERVICAL [...] documented in this encounter Visit Diagnoses Diagnosis Numbness Disturbance of skin sensation documented in this encounter Care Teams Casino Cage Supervisor Relationship Specialty Start Date End Date Iván Dela Cruz PA [address] [place] [address] PCP - General 12/01/24 documented as of this encounter
--- NOTE | 2025-01-19 13:00 | CT_ITS ---
Patient: LAVELLE ISRAEL Facility:?[facility] Patient ID:?[id number] Site Patient ID:?[id number]. Site :?1955 Study:?CT-Head WITHOUT-01/19/2025 2:35:46 PM Ordering Physician:?Esdras Flores Final Report: INDICATION: Neck pain COMPARISON: 01/27/2024 TECHNIQUE: A CT volumetric acquisition was performed of the brain without IV contrast. Please note that all CT scans at this facility use dose modulation, iterative reconstruction, and/or weight-based dosing when appropriate to reduce radiation dose to as low as reasonably achievable. FINDINGS: Incidental hyperostosis frontalis internus. Mild mucosal thickening/fluid within the right maxillary sinus. No intracranial hemorrhage, mass or mass effect. Degenerative changes at the temporomandibular joints. No intracranial hemorrhage, mass or mass effect. No hydrocephalus or midline shift. IMPRESSION: No acute findings. Right maxillary sinus disease. Please note that all CT scans at this facility use dose modulation, iterative reconstruction, and/or weight-based dosing when appropriate to reduce radiation dose to as low as reasonably achievable. Dictated by Harrison Stock MD @ 01/20/2025 8:59:37 AM Signed by:?Harrison Stock MD @01/20/2025 8:59:37 AM (Electronic Signature)
[2025-01-19 13:25] LABS: Creatinine* 1.2 mg/dL (0.5-1.5); Estimated Glomerular Filt Rate 49 ml/min
--- NOTE | 2025-01-19 13:30 | CT_ITS ---
Patient: LAVELLE ISRAEL Facility:?[facility] Patient ID:?[id number] Site Patient ID:?[id number]. Site :?1955 Study:?CT-Head Angio WITH 95 CC ISOVUE 370-01/19/2025 2:37:11 PM Ordering Physician:Aydin Flores Final Report: CLINICAL HISTORY: Neck pain. TECHNIQUE: Standard helical CT image acquisition through the head following the administration of intravenous contrast was performed. 3D and MIP reconstructions were performed at a separate workstation and permanently archived. COMPARISON: None available. FINDINGS: No intracranial proximal large vessel occlusion or flow-limiting luminal stenosis. No evidence of cerebral aneurysm. No findings to suggest an arterial-venous shunting lesion. IMPRESSION: No intracranial proximal large vessel occlusion, flow-limiting luminal stenosis, or cerebral aneurysm. Please note that all CT scans at this facility use dose modulation, iterative reconstruction, and/or weight-based dosing when appropriate to reduce radiation dose to as low as reasonably achievable. Dictated by Franklin Lee MD @ 01/20/2025 8:19:08 AM Signed by:?Franklin Lee MD @01/20/2025 8:19:08 AM (Electronic Signature)
--- NOTE | 2025-01-19 13:30 | CT_ITS ---
Patient: LAVELLE ISRAEL Facility:?[facility] Patient ID:?[id number] Site Patient ID:?[id number]. Site :?1955 Study:?CT-Neck Angio Angio WITH 95 CC ISOVUE 370-01/19/2025 2:36:34 PM Ordering Physician:?Esdras Flores Final Report: INDICATION: Neck pain. COMPARISON: None available. TECHNIQUE: CTA neck with contrast bolus tracking, 3D angiographic rendering using maximum intensity projection (MIP) and images permanently archived. FINDINGS: The origins of the great vessels are patent. There is no significant carotid artery stenosis or dissection. There is no significant vertebral artery stenosis or dissection. IMPRESSION: Patent cervical arterial vasculature without hemodynamically significant stenosis. Please note that all CT scans at this facility use dose modulation, iterative reconstruction, and/or weight-based dosing when appropriate to reduce radiation dose to as low as reasonably achievable. Dictated by Franklin Lee MD @ 01/20/2025 8:16:49 AM Signed by:?Franklin Lee MD @01/20/2025 8:16:49 AM (Electronic Signature)
--- OUTSIDE RECORDS SUMMARY | 2025-01-20 00:12 | XMS_ITS | Referral Summary ---
Author Organization [facility] Address [address] [place] [address] Care Team Providers Care Manager Solar Name Role Phone Iván Dela Cruz Primary Care Provider [phone] Encounters Date Type Department Care Team Description 01/04/2025 8:30 AM CDT Ancillary Procedure [address] [place] [address] Numbness 12/21/2024 9:00 AM CDT Office Visit [address] [place] [phone] Mark Dweitt MD Numbness (Primary Dx) from Last 3 Months Allergies Active Allergy Reactions Criticality Noted Date Comments Amoxicillin-Pot Clavulanate Rash Medium 11/19/2007 (Adult onset; reaction: rash; denies swelling/difficulty breathing/anaphylaxis) Codeine Nausea Low 12/24/2006 Loratadine Swelling, lips/tongue,Unknown Medium 11/22/2008 Simvastatin Medium 04/01/2024 Other Reaction(s): Hypertension Triamterene-Hydrochlo rothiazid Other Low 12/24/2006 Medications amLODIPine (NORVASC) 5 mg oral tablet 5 MG ORALLY EVERY DAY AT BEDTIME Active Amoxicillin 500 mg oral Tab TAKE 4 TABLETS BY MOUTH 1 HOUR BEFORE DENTAL APPOINTMENT 5 Active rosuvastatin (CRESTOR) 10 mg oral tablet Take 1 tablet (10 mg) by mouth once daily. Active Losartan (COZAAR) 100 mg oral tablet TAKE 1 TABLET 100 MG ORALLY EVERY DAY Active Active Problems Problem Noted Date Diagnosed Date S/P total knee arthroplasty, right 03/26/2024 HTN (hypertension) 01/11/2009 Allergic rhinitis 12/24/2006 Social History Tobacco Use Types Packs/Day Years [...] on file Sexual Orientation Not on file Plan of Treatment Not on file Procedures Procedure Name Priority Date/Time Associated Diagnosis Comments MRI SPINE CERVICAL W/O CON Routine 01/04/2025 10:35 AM CDT Numbness from Last 3 Months Results * MRI SPINE CERVICAL W/O CON [...] Dewitt MD MRI ORDERABLE Final Res ult from Last 3 Months Insurance [facility] MEDICARE ADVANTAGE Care Teams Manager Solar Relationship Specialty Start Date End Date Iván Dela Cruz PA [facility] [address] [phone] PCP - General 12/01/24
--- OUTSIDE RECORDS SUMMARY | 2025-01-20 00:12 | XMS_ITS | Clinical Summary ---
Author Organization [facility] Address [address] [place] [address] Care Team Providers Care Economic Development Manager Name Role Phone Votel, Christoph Chaudhary MD Primary Care Provider + Allergies Active Allergy Reactions Criticality Noted Date Comments Amoxicillin-Pot Clavulanate Rash 11/19/19 08 Codeine 12/24/2006 Loratadine Edema 11/22/2008 Triamterene-Hydrochlorothiazid 12/24 Medications lisinopril (PRINIVIL; ZESTRIL) 20 mg tablet Take three tablets daily 90 tablet 3 05/29/2010 Active doxazosin (CARDURA) 2 mg tabletIndicatio ns:HTN (hypertension) Take 2 tablets by mouth at bedtime. 60 tablet 5 07/10/2010 Active Active Problems Problem Noted Date Diagnosed Date Screen for colon cancer 05/04/2009 Overview (05/04/2009): Colonoscopy 04/2009 normal repeat in 10 years HTN (hypertension) 01/11/2009 Allergic rhinitis, cause unspecified 12/24/2006 Immunizations Immunization Administration Dates Next Due Td (Age >=7 Years) 03/07/2003 Family History Medical History Relation Name Comments Heart Disease Father suddenly at age 81 of [place] Other Father Sleep apnea, Hypertension Mother Relation Name Status Comments Father Alive Mother Alive Social History Tobacco Use Types Packs/Day Years Used Date Smoking Tobacco: Never Smokeless Tobacco: Never Alcohol Use Standard Drinks/Week Comments No 0 (1 standard drink = 0.6 oz pur e alcohol) Alcoholic Drinks/day: 0 Comments No Sex and Gender Information Value Date Recorded Sex Assigned at Not on file Legal Sex Female 5:41 AM SECURITY INTELLIGENCE ANALYST Gender Identity Not on file Sexual Orientation Not on file 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 Not on file Not on file Not on file Obstetrics History Last Filed Vital Signs Vital Sign Reading Time Taken Comments Blood Pressure 136/79 09/04/2010 4:44 PM SECURITY INTELLIGENCE ANALYST Pulse 63 09/04/2010 4:44 PM SECURITY INTELLIGENCE ANALYST Temperature 36.7 C (98 F) 11/19/2007 9:05 AM CDT Respiratory Rate - - Oxygen Saturation 98% 08/21/2010 10:43 AM SECURITY INTELLIGENCE ANALYST room air Inhaled Oxygen Concentration - - Weight 103.4 kg (228 lb) 09/04/2010 4:44 PM SECURITY INTELLIGENCE ANALYST Height 176.5 cm (5' 9.5) 01/09/2010 3:09 PM CDT Body Mass Index 33.19 01/09/2010 3:09 PM CDT Plan of Treatment Health Maintenance Due Date Last Done Comments Tdap 1965 Depression screening for age 12+ 1966 BMI (ht and wt on same day) for age 18+ 1972 Hepatitis C screening for age 18-79 1972 Pneumococcal series for age 50+ (1 of 1 - PCV) 2004 Zoster (shingles) series for age 50+ (1 of 2) 2004 Mammogram for age 45-75 12/21/2009 12/21/2008, 11/22 Tetanus booster 03/07/2013 03/07/2003 Lipids for age 45-75 08/21/2015 08/21/2010, 11/22/2008, 12/24/2006, Additional history exists Colonoscopy through age 75 05/04/2019 05/04/2009 DEXA/DXA scan for age 65+ 2019 COVID-19 vaccine series ( - 2023- season) 2024 Influenza Vaccine (Season Ended) 2025 RSV vaccine for adults or (1 - 1-dose 75+ series) 2029 Hepatitis B series for 19+ Aged Out N o longer eligible based on patient's age to complete this topic Procedures Procedure Name Priority Date/Time Associated Diagnosis Comments LIPID PANEL Routine 08/21/2010 9:47 AM SECURITY INTELLIGENCE ANALYST Screening, lipid XR FFDM MAMMO UNI ADDL VIEWS RIGHT (IA) Routine 12/21/2008 1:43 PM CDT Abnormal Mammogram, Unspecified from Last 3 Months or Most Recently Relevant to Health Maintenance Results * (ABNORMAL) LIPID PANEL (08/21/2010 9:47 AM SECURITY INTELLIGENCE ANALYST) CHOLESTEROL,TOTAL 216(H) 110 - 199 mg/dL [facility] TRIGLYCERIDES 101 <150 mg/dL [facility] HDL CHOLESTEROL 48 >40 mg/dL [facility] CHOL/HDL RATIO 4.[address] [facility] LDL CHOLESTEROL 148(H) <131 mg/dL [facility] PATIENT STATUS Fasting [facility] Blood specimen (specimen) BLOOD SPECIMEN / Unknown 08/21/2010 9:47 AM SECURITY INTELLIGENCE ANALYST 08/21/2010 9:43 AM SECURITY INTELLIGENCE ANALYST Christoph Negron MD CHEMISTRY Final Re sult [facility] [address] [place] [address] * XR FFDM MAMMO UNI ADDL VIEWS RIGHT (12/21/2008 1:43 PM CDT) MAMMOGRAM ACR 2 Benign Finding Anatomical Region Laterality Modality BREASTS, Breast Right Right Mammograph y 12/21/2008 1:43 PM CDT Narrative 12/21/2008 2:54 PM CDT RIGHT MAMMOGRAM ADDITIONAL VIEWS CLINICAL HISTORY: Because of a focal asymmetric density in the anterior aspect of the right breast on the MLO projection, the patient returned for additional views. FINDINGS: A spot compression view was obtained in the ML projection and a true lateral projection was obtained. The density was less apparent on the spot compression view and was not seen with certainty on the true lateral film or the previous CC projection. It is therefore felt to be secondary to summation. CONCLUSION: 1. ACR 2 Benign Finding. 2. Recommend continued screening in one year. Procedure Note [...] in one year. Christoph Negron MD MAMMO Final Re sult from Last 3 Months or Most Recently Relevant to Health Maintenance Insurance [facility] Care Teams Economic Development Manager Relationship Specialty Start Date End Date VotelChristoph MD [address], [place] [id number] PCP - General 11/07/05
--- OUTSIDE RECORDS SUMMARY | 2025-01-20 00:12 | XMS_ITS | Clinical Summary ---
Author Organization [facility] [employer] [facility] Address [address] [address] Phone Care Team Providers Care Recreation Worker Name Role Phone Elsewhere, Pcp Primary Care Provider Unavailabl e Allergies Active Allergy Reactions Criticality Noted Date Comments Amoxicillin-Pot Clavulanate RASH Medium 11/19/2007 (Adult onset; reaction: rash; denies swelling/difficulty breathing/anaphylaxis) Codeine Nausea Only Low 12/24/2006 Hydrochlorothiazide-Triamt erene Other Low 12/24/2006 Loratadine Unknown Medium 11/22/2008 [...] Take with food. 41 Tablet 4 Active Active Problems Problem Noted Date Diagnosed Date S/P total knee arthroplasty, right 03/26/2024 Surgical History Surgery Date Site/Laterality Comments TONSILLECTOMY AND ADENOIDECTOMY LAPAROSCOPY TOOTH EXTRACTION third molar TOTAL KNEE ARTHROPLASTY 04/05/2024 Knee/Right Procedure: Right total knee arthroplasty; Surgeon: Jameel Roblero MD; Location: [facility] OR Medical devices from this surgery are in the Medical Devices section. Social History Tobacco Use Types Packs/Day Years Used Date Smoking Tobacco: Never Smokeless Tobacco: Never Tobacco Cessation:Counseling Given: Not Answered Alcohol Use Standard Drinks/Week Comments Yes 0 (1 standard drink = 0.6 oz pur e alcohol) 2 drinks monthy [facility] Utilities Answer Date Recorded In the past 12 months has th e [employer], oil, or water [employer] threatened to shut off services in your [...] any time in the past 12 m [facility], were you homeless or living in a mcc (including now)? No 04/05/2024 IP Custom IPV Answer Date Recorded Do [...] 69 04/06/2024 8:04 AM CDT Temperature 35.8 C (96.4 F) 04/06/2024 8:04 AM CDT Respiratory Rate 18 04/06/2024 12:34 AM CDT [...] (Standing Order) 1973 TETANUS (Standing Order) 1973 Pneumococcal Vaccine: 50+ yr s (Standing Order) (1 of 1 - PCV) 2004 Shingrix (Zoster recombinant ) vaccine (Standing Order) (1 of 2) 2004 DXA,FEMALES AGE 65 OR GREATER 2019 COVID-19 Vaccine ( - 2023-2 5 season) 2024 RSV Vaccination (60+ yrs) (Abrysvo/Arexvy) (1 - 1-dose 75+ series) 2029 HPV Vaccine (Standing Order) Aged Out No longer eligible based on patient's age to complete this topic Hepatitis B Vaccine (Standin g Order) Aged Out No longer eligible b ased on patient's age to complete this topic Medical Devices Implanted Type Area Feed Preparation Operator Device Identifier Shelf Expiration Date Model / Serial / Lot Cement Bone Mv Simplex P Speedset - [id number] Implanted:Qty: 1 on 04/05/2024 by Jameel Roblero MD at [facility] Right: Knee JH 10/25/2025 [id number] / NA / [id number] Baseplate Tibial Triathlon Sz 4 - [id number] Implanted:Qty: 1 on 04/05/2024 by Jameel Roblero MD at [facility] Right: Knee JH [id number] 02/07/2029 [id number] / NA / [id number] Triathlon Tibial Bearing Insert Ps Implanted:Qty: 1 on 04/05/2024 by Jameel Roblero MD at [facility] Right: Knee JH 02/06/2028 [id number] / NA / [id number] Femur Triathlon Ps Sz 5 Right - [id number] Implanted:Qty: 1 on 04/05/2024 by Jameel Roblero MD at [facility] Right: Knee JH [id number] 11/09/2028 [id number] / NA / [id number] Insurance [facility] MEDICARE ADVANTAGE Advance Directives For more information, please contact: [phone] * Full Code (Latest Code Status on File) Date Activated Date Inactivated Comments 04/05/2024 1:06 PM 04/06/2024 2:28 PM Care Teams Recreation Worker Relationship Specialty Start Date End Date Elsewhere, Pcp PCP - General 03/24/24
--- OUTSIDE RECORDS SUMMARY | 2025-01-20 00:12 | XMS_ITS | Clinical Summary ---
Author Organization [facility] Address [address] [place] [id number] Care Team Providers Care Manager Of Supply Chain Name Role Phone Iván Dela Cruz Primary Care Provider [phone] Allergies Active Allergy Reactions Criticality Noted Date [...] BY MOUTH 1 HOUR BEFORE DENTAL APPOINTMENT Active rosuvastatin (CRESTOR) 10 mg oral tablet Take 1 tablet (10 mg) by mouth once daily. Active Losartan (COZAAR) 100 mg oral tablet TAKE 1 TABLET 100 MG ORALLY EVERY DAY Active Active Problems Problem Noted Date Diagnosed Date S/P total knee arthroplasty, right 03/26/2024 HTN (hypertension) 01/11/2009 Allergic rhinitis 12/24/2006 Encounters Date Type Department Care Team Description 01/04/2025 8:30 AM CDT Ancillary Procedure [address] [place] [address] Numbness 12/21/2024 9:00 AM CDT Office Visit [address] [place] [address] [place] [phone] Mark Dewitt MD Numbness (Primary Dx) from Last 3 Months Social History Tobacco Use Types Packs/Day Years [...] Orientation Not on file Plan of Treatment Health Maintenance Due Date Last Done Comments Colonoscopy 1954 Hepatitis C Screening 1954 Mammogram Screening 1954 Medicare Wellness Visit 1954 Osteoporosis Screening 1954 Depression Assessment (PHQ-2) 1955 Yearly Review of HCD 2004 COVID-19 Vaccine (3 - 2023-2 5 season) 2024 06/14/2024, 05/22/2023 Influenza Vaccine (Season Ended) 2025 05/06/2023, 04/19/2021, 05/04/2017 RSV Vaccines (1 - 1-dose 75+ series) 2029 Adult Tetanus Booster 01/21/2034 01/22/2024 , 03/07/2003 Pneumococcal 50+ Years Completed , 02/13/2022 Zoster Vaccine Completed 05/06/2023, 03/05/2023, 03/17/2015 Meningococcal B Vaccine Aged Out No l onger eligible based on patient's age to complete [...] cord. Report signed by: Harrison Bobby MD us Mark Dewitt MD MRI ORDERABLE Final Res ult from Last 3 Months Insurance [facility] MEDICARE ADVANTAGE Care Teams Manager Of Supply Chain Relationship Specialty Start Date End Date Iván Dela Cruz [place] [address] [place] [phone] PCP - General 12/01/24
== END 2025-01-19 12:44 | disposition home or self-care (01) ==
LOC: CT 12:44
PROVIDERS: PCP Physician Assistant Medical; Visit Provider Psychiatry & Neurology Neurology
DX: M54.2 Cervicalgia (principal); J32.0 Chronic maxillary sinusitis
CPT/HCPCS: 36415; 70450; 70496; 70498; 82565; Q9967

== ENCOUNTER 2025-02-02 08:04 | Outpatient (CLI) | payer MEDICARE, SELFPAY | END 2025-02-02 08:05 | disposition home or self-care (01) | LOC: NFLDREF 02-04 13:07 | PROVIDERS: PCP Physician Assistant Medical; Referring Provider Physician Assistant Medical; Visit Provider Physician Assistant Medical | DX: I10 Essential (primary) hypertension (principal); E78.5 Hyperlipidemia, unspecified; M85.89 Other specified disorders of bone density and structure, multiple sites; G62.9 Polyneuropathy, unspecified; L98.9 Disorder of the skin and subcutaneous tissue, unspecified; J32.9 Chronic sinusitis, unspecified | CPT/HCPCS: 80053; 80061; 82607; 84443 ==

== ENCOUNTER 2025-02-17 10:04 | Day surgery (SDC) | payer MEDICARE, SELFPAY ==
[2025-02-17] MEDS: LACTATED RINGERS 1000 ML 1,000 ML 100 ML IV (10:25)
[2025-02-17 10:32] VITALS: BP 181/92; PULSE 55; RESP 16; TEMP 36.7; O2SAT 98
[2025-02-17 10:33] VITALS: BMI 34.2
[2025-02-17] MEDS: SODIUM CHLORIDE 0.9 % (FLUSH) 10 ML SYRINGE IVF (10:57)
--- NOTE | 2025-02-17 12:36 | P.GSOP_ITS ---
Operative Note Date of procedure: 02/17/25 Pre-op diagnosis: 1. Right facial numbness and temporal tenderness concerning for temporal arteritis. Post-op diagnosis: same Type of Procedure: 1. Right temporal artery biopsy. Indications: 69-year-old female was Seen in clinic for evaluation of possible right temporal arteritis. Patient states that since July of 2024 she has been having symptoms of tingling on the right side of her face. It starts from the lower neck and continues up her lateral face to her congregation. She denies pain but describes it as ?funny feeling?. Patient has a history of right submandibular gland excision for obstructive symptoms many years ago. She had 3 sinus infections since October of 2024. She does not think her tingling changed since those sinus infections. She was treated with antibiotics. Patient had neck CT done in December of 2025 that did not show arterial stenosis. There was no evidence of neck masses. Patient had normal ESR. Patient was previously seen by Neurology in December of 2024 and they did not see an explanation for her right- sided facial symptoms. Patient was seen by ENT who was concerned for temporal arteritis. On clinical exam patient had tenderness to palpation over the right congregation. There is no evidence of cellulitis, induration, or other findings in the right face that could explain her symptoms. Given patient's clinical history and her symptoms, we discussed temporal artery biopsy. The risks of the procedure and benefits were discussed with the patient. The risks such as infection, bleeding, and negative biopsy result were all discussed with the patient, and she agreed to proceed. Procedure Description: After discussing the risks and benefits of the procedure, the patient signed informed consent.? The operative site was marked and the patient was brought to the operating room and placed on the operating table in supine position.? Care was taken to pad the patient's pressure points.?? The patient was then sedated by anesthesia.?? The operative site was then prepped and draped in the usual sterile fashion.? A time-out was then performed. The Right superficial temporal artery pulse was palpated and the course of the artery was marked with a marking pen. A mixture of 1% Lidocaine and 0.25% Papo ine with Epinephrine was injected at the site of the incision and a vertical skin incision was made with a scalpel. Subcutaneous tissues were dissected with tenotomy scissors. The use of cautery was minimized throughout the case. Superficial temporal fascia was opened and the course of the superficial temporal artery was visualized. Tissues around the artery were dissected off. There were multiple small arterial branches and those were controlled with cautery and small clips. A hand-held Doppler was used to confirm pulse in the exposed artery. When over 2 cm of the temporal artery was exposed, its proximal and distal ends were tied with 3-0 vicryl ties and the exposed segment of the right temporal artery was excised. The proximal and distal tied ends of the artery were also clipped with vascular clips. The specimen was passed off the field and sent to pathology. Surgical field was examined for bleeding and there was none. Additional local anesthetic was injected at the surgical site. Subdermal layer was re-approximated with interrupted 3-0 vicryl stitches. Skin was closed with a running 4-0 monocryl stitch. Dermabond was applied over the incision. Patient tolerated the procedure well and was transferred to same day surgery in stable condition. Sterile dressings were then applied. Anesthesia: MAC and local Surgeon: Tammi Glez MD Estimated blood loss (mL): 5 Additional Specimen Information: 1. Right temporal artery biopsy. Condition: stable Disposition: same day
[2025-02-17] MEDS: BUPIVACAINE 0.25% 30 ML 10 ML INJECTION (13:26)
[2025-02-17] MEDS: LIDOCAINE 1%-EPI 1:100,000 10 ML INFILTRATI (13:26)
--- NOTE | 2025-02-17 13:30 | SUR.OPER ---
PATIENT QUESTIONS ANSWERED SATISFACTORILY PREOPERATIVELY. PATIENT BROUGHT TO OR #2 PER CART. Patient positioned supine on OR #2 bed. The perioperative team supported arms bilaterally on arm boards. Final approval of positioning by surgeon.
--- NOTE | 2025-02-17 14:14 | P.ANES_ITS ---
Anesthesia Charges Start Date/Time Anesthesia Start Date: 02/17/25 Anesthesia Start Time: 12:53 Stop Date/Time Anesthesia Stop Date: 02/17/25 Anesthesia Stop Time: 14:13 Summary Extremes of Age - Over 70 or under 1: FIELD PROFESSIONAL Coding CPT Codes CPT Codes: ANESTH NECK VESSEL SURGERY - 54453 ([id number]) P2 - PATIENT W/MILD SYST DISEASE, QX - FIELD PROFESSIONAL SVC W/ MD MED DIRECTION, QK - SOCIAL SERVICE COORDINATOR 2-4 CNCRNT ANES PROC Additional Codes: Summary - Extremes of Age - Over 70 or under 1: FIELD PROFESSIONAL ([id number])
--- NOTE | 2025-02-17 14:14 | W.ANESCHARGE ---
Anesthesia Charges Start Date/Time Anesthesia Start Date: 02/17/25 Anesthesia Start Time: 12:53 Stop Date/Time Anesthesia Stop Date: 02/17/25 Anesthesia Stop Time: 14:13 Summary Extremes of Age - Over 70 or under 1: TEXTILE ENGRAVER Coding CPT Codes CPT Codes: ANESTH NECK VESSEL SURGERY - 09181 ([id number]) P2 - PATIENT W/MILD SYST DISEASE, QX - TEXTILE ENGRAVER SVC W/ MD MED DIRECTION, QK - HELMINTHOLOGIST 2-4 CNCRNT ANES PROC Additional Codes: Summary - Extremes of Age - Over 70 or under 1: TEXTILE ENGRAVER ([id number])
[2025-02-17 14:15] VITALS: BP 132/72; PULSE 51; RESP 16; TEMP 36.7; O2SAT 94
--- NOTE | 2025-02-17 14:21 | P.ANES_ITS ---
Anesthesia Charges Start Date/Time Anesthesia Start Date: 02/17/25 Anesthesia Start Time: 12:53 Stop Date/Time Anesthesia Stop Date: 02/17/25 Anesthesia Stop Time: 14:13 Summary Extremes of Age - Over 70 or under 1: MDA Coding CPT Codes CPT Codes: ANESTH NECK VESSEL SURGERY - 43238 ([id number]) QK - ARMAMENT AIRCRAFT MECHANIC 2-4 CNCRNT ANES PROC, QX - OUTPATIENT PROGRAM COORDINATOR SVC W/ MD MED DIRECTION, P2 - PATIENT W/MILD SYST DISEASE Additional Codes: Summary - Extremes of Age - Over 70 or under 1: MDA ([id number])
[2025-02-17 14:30] VITALS: BP 132/74; PULSE 54; RESP 16; O2SAT 96
[2025-02-17 14:45] VITALS: BP 133/78; PULSE 55; RESP 16; O2SAT 96
== END 2025-02-17 14:57 | disposition home or self-care (01) ==
PROVIDERS: Surgery; PCP Physician Assistant Medical; Visit Provider Surgery
PROC: (CPT 37609; principal; 2025-02-17 11:45)
DX: R51.9 Headache, unspecified (principal); R20.0 Anesthesia of skin
CPT/HCPCS: 37609; 00352; 99100; J0665; J0690; J1100; J2250; J2405; J2704; J3010; J3490; J7120

== ENCOUNTER 2025-03-18 09:51 | Outpatient (CLI) | payer MEDICARE, SELFPAY ==
--- NOTE | 2025-03-18 10:15 | CRLHL7_ITS ---
For Patients: As a result of the Cures Act, medical imaging exams and procedure reports are released immediately into your electronic medical record. You may view this report before your referring provider. If you have questions, please contact your health care provider. INDICATION: Transient alteration of awareness TECHNIQUE: Noncontrast Sagittal T1,Axial FSE T2, Flair, DWI images submitted. Compared to prior study from May 17, 2020 FINDINGS: The ventricles, sulci and gyri are of normal size, shape and contour for age. Midline structures are centrally located. No convincing evidence of suspicious intra- or extra-axial fluid collections. Worsening mild patchy regions of increased T2 signal within the periventricular and subcortical white matter of both cerebral hemispheres. No regions of restricted diffusion. IMPRESSION: 1. No radiographic evidence of acute intracranial abnormalities. 2. Worsening mild supratentorial white matter changes that are non-specific, but statistically most likely related to chronic small vessel ischemic disease. Dictated by Donovan Zaman MD @ 03/18/2025 12:02:50 PM (Electronically Signed)
== END 2025-03-18 09:52 | disposition home or self-care (01) ==
LOC: MRI 09:52
PROVIDERS: PCP Physician Assistant Medical; Visit Provider Family Medicine
DX: R40.4 Transient alteration of awareness (principal); G93.9 Disorder of brain, unspecified; R20.2 Paresthesia of skin
CPT/HCPCS: 70551

== ENCOUNTER 2025-04-12 08:37 | Outpatient (CLI) | payer MEDICARE, SELFPAY | END 2025-04-12 08:38 | disposition home or self-care (01) | LOC: NFLDREF 04-17 04:24 | PROVIDERS: PCP Physician Assistant Medical; Referring Provider Physician Assistant Medical; Visit Provider Physician Assistant Medical | DX: E78.5 Hyperlipidemia, unspecified (principal); I10 Essential (primary) hypertension; Z86.39 Personal history of other endocrine, nutritional and metabolic disease; Z79.899 Other long term (current) drug therapy | CPT/HCPCS: 82306; 82607; 82728; 84443 ==

== ENCOUNTER 2025-06-02 13:19 | Outpatient (CLI) | payer MEDICARE, SELFPAY ==
--- NOTE | 2025-06-02 14:00 | CRLHL7_ITS ---
For Patients: As a result of the Century Cures Act, medical imaging exams and procedure reports are released immediately into your electronic medical record. You may view this report before your referring provider. If you have questions, please contact your health care provider. XR DXA BONE MINERAL DENSITY (BMD) Current height (in): 69.0. Weight (lb): 235.0. Menopause age: 49. Ethnicity: White. Reason for exam: Follow-up osteopenia. 1. Have you had a previous hip or vertebral fracture? No. 2. Have you had any fractures during your adult life which did not result from significant trauma (e.g., auto accident)? No. 3. Did either of your parents have a hip fracture? No. 4. Do you smoke? No. 5. Have you ever taken Glucocorticoids? No. 6. Do you have rheumatoid arthritis? No. 7. Do you have secondary osteoporosis? No. 8. Do you drink 3 or more alcoholic drinks per day? No. 9. Are you being treated for osteoporosis? No. 10. Have you ever taken any of the following medications: Actonel, Evista, Fosamax, Miacalcin, Reclast, Boniva, Forteo, HRT (i.e. estrogen/hormone therapy), Protelos, Prolia, Vitamin D, Calcium, other ??? please specify. ANSWER: Yes, vitamin D, calcium. 11. Do you have any of the following medical conditions: Anorexia or bulimia, asthma or emphysema, end stage renal disease, hyperparathyroidism, any seizure disorders, cancer, inflammatory bowel diseases, hysterectomy, other ??? please specify. ANSWER: No. 12. What was your maximum height (inches)? 69.5. 13. Do you perform weight bearing exercise regularly? No. 14. Do you regularly consume dairy products? No. 15. Do you drink caffeinated beverages? Yes. 16. At what age did your period start? 11. 17. Are you premenopausal? No. 18. How many full-term pregnancies have you had? 4. 19. Have you ever missed your period for more than 6 months in a row (not including or menopause)? No. TECHNIQUE: Bone mineral density study was performed using the [employer]. FINDINGS: The results of the study expressed as bone mineral density (BMD) are as follows: Lumbar spine L1 to L4: BMD: 0.876 g/cm2. T-score: -1.6. Z-score: 0.6 Neck Left: BMD: 0.741 g/cm2. T-score: -1.0. Z-score: 0.9 Right: BMD: 0.737 g/cm2. T-score: -1.0. Z-score: 0.8 Total Left: BMD: 0.978 g/cm2. T-score: 0.3. Z-score: 1.8 Right: BMD: 0.996 g/cm2. T-score: 0.4. Z-score: 2.0 IMPRESSION: Osteopenia. *Comparison exams done prior to 12/2019 were performed on different unit, [employer]. COMPARISON: Compared with scan of 05/29/2023, the bone mineral density has decreased by 3.0 percent at the spine and increased by 3.5 percent at the hip. FRAX 10-year Fracture Risk Major Osteoporotic Fracture: 8.3 percent Hip Fracture: 0.9 percent Reported Risk Factors: [place] () Neck BMD = 0.737, BMI = 34.7 Vaishali Diaz M.D. Body/Diagnostic Radiologist [email or web address] Transcribed: 9:13 am DW/Dictated by: Vaishali Diaz MD @ 06/03/2025 3:12:00 AM (Electronically Signed)
== END 2025-06-02 13:20 | disposition home or self-care (01) ==
LOC: RAD 13:20
PROVIDERS: PCP Physician Assistant Medical; Visit Provider Physician Assistant Medical
DX: M85.80 Other specified disorders of bone density and structure, unspecified site (principal); M85.89 Other specified disorders of bone density and structure, multiple sites
CPT/HCPCS: 77080

== ENCOUNTER 2025-07-18 08:13 | Outpatient (CLI) | payer MEDICARE, SELFPAY ==
--- NOTE | 2025-07-18 08:45 | CRLHL7_ITS ---
For Patients: As a result of the Century Cures Act, medical imaging exams and procedure reports are released immediately into your electronic medical record. You may view this report before your referring provider. If you have questions, please contact your health care provider. INDICATION: BILATERAL SCREENING MAMMOGRAM, ASYMPTOMATIC 69 Y/O FEMALE COMPARISON: 06/01/2024, 05/29/2023, 07/26/2021 TECHNIQUE: Digital mammogram in CC and MLO projections including computer-aided detection (CAD) and tomosynthesis. BREAST COMPOSITION: There are scattered areas of fibroglandular density. FINDINGS: No suspicious findings. ASSESSMENT: BI-RADS 1 Negative RECOMMENDATION: Annual screening mammogram. A lay language report of this examination will be provided to the patient. Dictated by: Raven Montano MD @ 07/19/2025 10:24:25 (Electronically Signed)
== END 2025-07-18 08:14 | disposition home or self-care (01) ==
LOC: MAMMO 08:13
PROVIDERS: PCP Physician Assistant Medical; Visit Provider Physician Assistant Medical
DX: Z12.31 Encounter for screening mammogram for malignant neoplasm of breast (principal)
CPT/HCPCS: 77063; 77067